=== PATIENT | female | born 1940 | race African-American/Black ===

== ENCOUNTER 2018-01-07 06:01 | Inpatient (IN) | payer MEDICARE, MEDICAID ==
[2018-01-07] MEDS ORDERED: Nitroglycerin 0.4 MG TAB (25 Tab Bottle) ONE (06:29)
[2018-01-07 06:50] LABS: #Eosinphils 0.1 thou/uL (0.0-0.7); #Lymphocytes 1.3 thou/uL (1.20-3.40); #Monocytes 0.5 thou/uL (0.11-0.59); #Neutrophils 4.4 thou/uL (1.40-6.50); %Basophils 0.5 % (0.0-1.0); %Lymphocytes 20.7 % (21.0-51.0); %Monocytes 7.3 % (0.0-10.0); %Neutrophils 69.5 % (42.0-75.0); Hemoglobin 12.2 g/dL (12.0-16.0); Mean Corpuscular Hemoglobin 26.9 pg (27.0-31.0); Mean Corpuscular Volume 89.7 fl (81.0-99.0); Mean Platelet Volume 8.5 fL (7.4-10.4); Platelet Count 176 thou/uL (130-400); RBC Distribution Width 16.7 % (11.5-14.5); Red Blood Cell (RBC) Count 4.53 mill/uL (4.20-5.40); White Blood Cell (WBC) Count 6.3 thou/uL (4.8-10.8)
[2018-01-07 07:03] LABS: ALT (SGPT) 9 U/L (8-55); AST (SGOT) 18 U/L (5-34); Albumin 3.8 g/dL (3.4-4.8); Alkaline Phosphatase 93 U/L (40-150); Anion Gap 9 mmol/L (10-20); BUN (Urea Nitrogen) 14 mg/dL (9.8-20.1); Bilirubin, Total 0.6 mg/dL (0.2-1.2); Calc. Creatinine Clearance 0 mL/min (70-130); Calcium 9.3 mg/dL (7.8-10.44); Carbon Dioxide 31 mmol/L (23-31); Chloride 105 mmol/L (98-107); Estimated GFR-MDRD 61; Globulin 4.1 g/dL (2.4-3.5); Glucose 94 mg/dL (83-110); Potassium 4.1 mmol/L (3.5-5.1); Protein, Total 7.9 g/dL (6.0-8.3); Sodium 141 mmol/L (136-145)
[2018-01-07 07:07] LABS: CKMB 1.9 ng/mL (0-6.6); Troponin I 0.055 ng/mL (< 0.028)
[2018-01-07 07:14] LABS: Hypochromia SLIGHT = 6-15 cells (100X) (0-5/hpf); MDiff Complete? YES; Polychromasia SLIGHT = 2-3 cells (100X) (0-2/hpf)
--- NOTE | 2018-01-07 07:36 | RAD ---
RADIOGRAPH CHEST 1 VIEW: Date: 01/07/18 Time: 0637 HOURS HISTORY: 77-year-old female with dyspnea. COMPARISON: 06/07/14. FINDINGS: Again, the lungs are very hypoinflated, making this a limited study. There are bilateral mixed inters titial and alveolar infiltrates, in a heterogeneous distribution. The right upper lobe is relatively spared. The pattern is similar to that of the prior study. No pneumothorax. IMPRESSION: Nonspecific, bilateral mixed interstitial and alveolar infiltrates, in a pattern similar to prior danielle dy several years ago: pneumonia versus pulmonary edema versus chronic changes. JN [] POS: OFF
[2018-01-07] MEDS ORDERED: Furosemide 40 MG/4 ML VIAL ONE (08:19)
[2018-01-07] MEDS ORDERED: Nitroglycerin 2% Ointment 1 INCH/1 GM Packet ONE (08:19)
[2018-01-07] MEDS ORDERED: Acetaminophen 500 MG TAB ONE ×2 (10:37)
[2018-01-07 11:45] LABS: Clarity Clear (Clear); Glucose, Urine (Dipstick) Negative (Negative); Leukocyte Negative (Negative); Nitrite Negative (Negative); Protein, Urine (Dipstick) Negative (Neg-Trace); Specific Gravity, Urine 1.007 (1.002-1.036); Urobilinogen 0.2 mg/dL (0.2-1.0)
[2018-01-07 11:46] LABS: Bilirubin Negative (Negative); Blood, Urine Negative (Negative)
[2018-01-07 14:35] VITALS: BMI 36.6
[2018-01-07] MEDS ORDERED: Furosemide 100 MG/10 ML VIAL SLOW IVP SCH (14:45)
[2018-01-07] MEDS ORDERED: Amlodipine 5 MG TAB PO SCH (16:15)
--- NOTE | 2018-01-07 16:33 | CON ---
DATE OF CONSULTATION: 01/07/2018 REASON FOR CONSULTATION: Elevated BNP and shortness of breath. REFERRING PROVIDER: Sav Corbett MD HISTORY OF PRESENT ILLNESS: Ms. Raygoza is a pleasant 77-year-old woman who has not been seen or evalua joaquina by Cardiology in the past. She does have a history of advanced PVD and is being followed by Dr. Cyril Porras. She says over the last week she has had increased shortness of breath. It is unknown w hether she has had increased weight. She has had a cough with phlegm production. No chest pain pres sure noted. Her BNP was greater than 1000. PAST MEDICAL HISTORY: Diabetes mellitus, PVD, status post left AKA, hypertension, hyperlipidemia, gl aucoma. ALLERGIES: SULFA. SOCIAL HISTORY: No current tobacco or alcohol use. REVIEW OF SYSTEMS: Ten point review of systems is reviewed and as above, otherwise negative. PHYSICAL EXAMINATION: GENERAL: Patient is a pleasant female who is in no acute distress. The patient appears her stated a ge. VITAL SIGNS: 188/83, pulse 70, temperature 98.2. NEUROLOGIC: The patient is alert and oriented times 3 with no focal neurologic deficits. HEENT: Sclerae without icterus. Mouth has moist mucous membranes with normal pallor. NECK: No JVD. Carotid upstroke brisk. No bruits bilaterally. LUNGS: Clear to auscultation with unlabored respirations. BACK: No scoliosis or kyphosis. CARDIAC: Regular rate and rhythm with normal S1 and S2. No S3 or S4 noted. No significant rubs, mu rmurs, thrills, or gallops noted throughout the precordium. PMI is not displaced. There is no avtar ternal heave. ABDOMEN: Soft, nontender, nondistended. No peritoneal signs present. No hepatosplenomegaly. No ab normal striae. EXTREMITIES: AKA on left. SKIN: No gross abnormalities. PERTINENT LABORATORY DATA: As above including a peak troponin of 0.055. IMPRESSION: 1. Shortness of breath. 2. Elevated BNP. 3. Peripheral vascular disease. 4. Diabetes mellitus. RECOMMENDATIONS: Ms. Raygoza's symptoms is likely related to diastolic dysfunction. Her blood pressure is markedly elevated. At this point, we would recommend aggressive blood pressure management, would also recommend an echo with Doppler which is currently pending. She is currently on Coreg at 3.125 one p.o. b.i.d. We will increase to 6.25 b.i.d. We will also increase her lisinopril and add low dos e Norvasc.
[2018-01-07 16:34] LABS: Troponin I 0.077 ng/mL (< 0.028)
[2018-01-07] MEDS ORDERED: Dextrose 50% Abboject 50 ML SYRINGE SLOW IVP PRN (17:43)
[2018-01-07] MEDS ORDERED: Dextrose 5% in Water 1,000 ML IV PRN (17:43)
[2018-01-07] MEDS: Carvedilol 6.25 MG TAB PO SCH (20:54)
[2018-01-07] MEDS ORDERED: Carvedilol 3.125 MG TAB PO SCH (21:00)
[2018-01-07 21:51] LABS: Troponin I 0.055 ng/mL (< 0.028)
[2018-01-08] MEDS: Furosemide 40 MG/4 ML VIAL SLOW IVP SCH ×2 (05:32→14:40)
[2018-01-08 05:35] LABS: ALT (SGPT) 9 U/L (8-55); AST (SGOT) 19 U/L (5-34); Albumin 3.4 g/dL (3.4-4.8); Alkaline Phosphatase 90 U/L (40-150); Bilirubin, Direct 0.3 mg/dL (0.1-0.3); Bilirubin, Total 0.6 mg/dL (0.2-1.2); Protein, Total 7.2 g/dL (6.0-8.3)
[2018-01-08] MEDS ORDERED: Lisinopril 2.5 MG TAB PO SCH (09:00)
[2018-01-08] MEDS ORDERED: Amlodipine 5 MG TAB PO SCH (09:00)
[2018-01-08 09:34] LABS: #Eosinphils 0.1 thou/uL (0.0-0.7); #Lymphocytes 1.1 thou/uL (1.20-3.40); #Monocytes 0.5 thou/uL (0.11-0.59); #Neutrophils 4.4 thou/uL (1.40-6.50); %Basophils 0.8 % (0.0-1.0); %Eosinophils 2.2 % (0.0-10.0); %Lymphocytes 17.6 % (21.0-51.0); %Monocytes 7.4 % (0.0-10.0); %Neutrophils 72.1 % (42.0-75.0); Hemoglobin 12.7 g/dL (12.0-16.0); Mean Corpuscular HGB CONC 29.7 g/dL (32.0-36.0); Mean Corpuscular Hemoglobin 26.8 pg (27.0-31.0); Mean Platelet Volume 9.5 fL (7.4-10.4); Platelet Count 186 thou/uL (130-400); Red Blood Cell (RBC) Count 4.76 mill/uL (4.20-5.40); White Blood Cell (WBC) Count 6.1 thou/uL (4.8-10.8)
[2018-01-08 09:44] LABS: Anion Gap 16 mmol/L (10-20); BUN (Urea Nitrogen) 17 mg/dL (9.8-20.1); Calc. Creatinine Clearance 102 mL/min (70-130); Calcium 9.2 mg/dL (7.8-10.44); Carbon Dioxide 26 mmol/L (23-31); Chloride 103 mmol/L (98-107); Estimated GFR-MDRD 67; Glucose 148 mg/dL (83-110); Potassium 4.3 mmol/L (3.5-5.1); Sodium 141 mmol/L (136-145)
--- NOTE | 2018-01-08 11:38 | PDOC.PN ---
- Subjective Encounter Start Date: 01/08/18 Encounter Start Time: 11:37 Subjective: nsg notes rev, lloyd ovn, currently still has some SOB sig improv c/w yday -: family @ bedside, no new c/o on 2LNC - Objective Vital Signs & Weight: Vital Signs (12 hours) Temp Pulse Resp BP Pulse Ox 01/08/18 11:23 98.8 F 70 16 127/58 L 95 01/08/18 09:31 98.1 F 70 16 127/70 95 01/08/18 04:00 98.1 F 62 18 114/63 93 L Weight Weight 297 lb 4.8 oz I&O: 01/07/18 01/08/18 01/09/18 06:59 06:59 06:59 Intake Total 660 Output Total 4975 Balance -4315 Result Diagrams: 01/08/18 04:10 01/09/18 07:53 Additional Labs: Accuchecks 01/08/18 01/07/18 01/07/18 05:59 20:55 16:57 POC Glucose 141 H 167 H 103 Phys Exam - Physical Examination Constitutional: NAD HEENT: PERRLA, moist MMs, sclera anicteric Neck: no nodes, no JVD, supple Respiratory: no wheezing, no rales, no rhonchi, clear to auscultation bilateral Cardiovascular: RRR, no significant murmur, no rub Gastrointestinal: soft, non-tender, no distention, positive bowel sounds Neurological: moves all 4 limbs Psychiatric: normal affect, A&O x 3 Skin: cap refill <2 seconds Dx/Plan - Plan * CHF * appreciate cardiology c/s * pending ECHO and then either poss stress vs LHC * continue IV diuresis lasix 40mg IV BID - currently diuresing approx 2L ovn * BMP in AM * Mosher DM2, stable * SSI * diabetic diet Hypertensive urgency on adm * resolved * continue home regimen and NICKIE, BB, diuresis obesity stable diet: cardiac, low sodium, fluid restricted activity: as naty Review of Systems - Medications/Allergies Allergies/Adverse Reactions: Allergies Allergy/AdvReac Type Severity Reaction Status Date / Time peanut Allergy Severe Anaphylaxis Verified 06/04/13 00:22 Medications: Current Medications Amlodipine Besylate (Norvasc) 5 mg PO DAILY [facility] Aspirin (Aspirin Chewable) 81 mg PO DAILY [facility] Carvedilol (Coreg) 6.25 mg PO BID [facility] Last Admin: 01/07/18 20:54 Dose: 6.25 mg Dextrose/Water (Dextrose 50%) 25 gm SLOW IVP PRN PRN PRN Reason: Hypoglycemia Furosemide (Lasix) 40 mg SLOW IVP 0600,1400 [facility] Last Admin: 01/08/18 05:32 Dose: 40 mg Glucagon (Glucagon) 1 mg IM PRN PRN PRN Reason: Hypoglycemia Dextrose/Water (D5w) 1,000 mls @ 0 mls/hr IV .Q0M PRN; As Directed PRN Reason: Hypoglycemia Insulin Human Lispro (Humalog) 0 units SC .MILD SLIDING SCALE PRN PRN Reason: Mild Correctional Scale Lisinopril (Zestril) 2.5 mg PO DAILY [facility] Lisinopril (Zestril) 10 mg PO DAILY [facility] Sodium Chloride (Flush - Normal Saline) 10 ml IVF Q12HR [facility] Last Admin: 01/07/18 20:56 Dose: 10 ml Sodium Chloride (Flush - Normal Saline) 10 ml IVF PRN PRN PRN Reason: Saline Flush Last Admin: 01/08/18 05:32 Dose: 10 ml
[2018-01-08] MEDS: Carvedilol 6.25 MG TAB PO SCH ×2 (14:32→20:57)
[2018-01-08] MEDS: Amlodipine 5 MG TAB PO SCH (14:32)
[2018-01-08] MEDS: Lisinopril 10 MG TAB PO SCH (14:32)
[2018-01-08] MEDS ORDERED: Gabapentin 300 MG CAP PO SCH (22:45)
[2018-01-09] MEDS: Furosemide 40 MG/4 ML VIAL SLOW IVP SCH ×2 (05:40→13:19)
[2018-01-09 08:30] LABS: Anion Gap 14 mmol/L (10-20); BUN (Urea Nitrogen) 15 mg/dL (9.8-20.1); Calc. Creatinine Clearance 105 mL/min (70-130); Calcium 9.4 mg/dL (7.8-10.44); Carbon Dioxide 36 mmol/L (23-31); Chloride 96 mmol/L (98-107); Estimated GFR-MDRD 71; Glucose 154 mg/dL (83-110); Potassium 3.6 mmol/L (3.5-5.1); Sodium 142 mmol/L (136-145)
--- NOTE | 2018-01-09 08:52 | HP ---
CHIEF COMPLAINT: Shortness of breath. HISTORY OF PRESENT ILLNESS: A 77-year-old female with a prior history of hypertension, diabetes, per ipheral vascular disease who presents with a chief complaint of shortness of breath. The patient sta johnny this has been progressive for the last several days. She does note a fair amount of swelling, ge neralized throughout her body and targeted towards her lower extremities as well. The patient denies any overt chest pain. Denies any cough. Denies any fevers, chills, or known sick contacts. Denies any prior similar episodes. REVIEW OF SYSTEMS: CONSTITUTIONAL: No fevers, no chills, no recent weight change that the patient is aware of. HEENT: No new headaches, vision changes, lightheadedness. CARDIOVASCULAR: Shortness of breath as above, otherwise accompanied by dyspnea with exertion, but no chest pain, chest pressure, diaphoresis, nausea or vomiting. RESPIRATORY: Shortness of breath as above. Intermittent cough, nonproductive. No coughing paroxysm s. GASTROINTESTINAL: No nausea, no vomiting. The patient reports a retained appetite. No diarrhea, no issues with constipation. GENITOURINARY: No dysuria, no change in urinary frequency, quality or quantity. MUSCULOSKELETAL: No new arthralgias or myalgias. The remainder of the review of systems otherwise negative. PAST MEDICAL HISTORY: As per above, includes hypertension, obesity, diabetes, question of prior aort ic valvular surgery, peripheral vascular disease. HOME MEDICATIONS: As per EMR. The patient denies any changes over the last month to her home regime n. 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 FAMILY HISTORY: Significant for cardiovascular disease and hypertension. SOCIAL HISTORY: Denies any alcohol, tobacco or illicit drug use at this point in time. The patient endorses being a full code as well and does not designated a medical decision maker at this point in time. PHYSICAL EXAMINATION: VITAL SIGNS: Temperature 98.2, heart rate of 70, blood pressure 211/92, respirations 18, satting 97% on 3 liters nasal cannula. Of note, it appears that the patient was hypoxic with a pO2 of 83% upon initial presentation. HEENT: Ocular motions are intact. Moist mucous membranes. GENERAL: The patient is awake, alert, appropriate, sitting in the hospital bed. CARDIOVASCULAR: S1, S2, soft heart tones. Pulses 2+ bilateral upper extremities, 2+ bilateral pitti ng pedal edema. RESPIRATORY: Diminished throughout, coarse with bibasilar crackles. ABDOMEN: Positive bowel sounds. Large, obese, soft, nontender to palpation. MUSCULOSKELETAL: Moving all 4 extremities. LABORATORY DATA AND IMAGING: WBC 6.3, hemoglobin 12.2, hematocrit 40.6, platelets 176. Sodium 141, potassium 4.1, chloride 105, bicarbonate 31, BUN 14, creatinine 0.105, glucose 94, calcium 9.3, tota l bilirubin 0.6, AST 18, ALT 9, alkaline phosphatase 93. Initial troponin 0.05 followed by 0.077, fo llowed by 0.055. Beta natriuretic peptide is 1041.4, total protein 7.9, albumin 3.8. UA is essentia lly bland. ASSESSMENT AND PLAN: This is a 77-year-old female presenting with chief complaint of shortness of br eath. 1. Shortness of breath with a clinical picture consistent with congestive heart failure. I apprecia te Cardiology consult. The patient has received 40 IV Lasix in the ER. We will follow this with ano ther 80 mg IV for a total of 120 mg IV Lasix with close monitoring of her renal function and electrol ytes. We will check an echocardiogram. Trend serial troponins. Maintain on telemetry as well. The patient certainly has risk factors for interval cardiovascular disease development and it is unclear if this is purely diastolic versus a systolic component to her heart failure at this point in time. 2. Hypertension. Patient currently has uncontrolled hypertension. We will administer the Lasix as noted above and closely monitor her blood pressure. I expect a degree of the escalation of her systo lic blood pressure after administration of the Lasix. If not, I will continue with her home medicati ons with p.r.n. either beta beverley if her heart rate allows or hydralazine as needed for blood press ure control. 3. Diabetes. Continue cardiac diabetic diet with low sodium. Sliding scale insulin. 4. Obesity. The patient has been counseled regarding lifestyle modifications. We admitted the patient to inpatient medical/surgical with telemetry. Full code. Thank you for asking me to care for the patient.
[2018-01-09] MEDS: Carvedilol 6.25 MG TAB PO SCH ×2 (13:10→21:01)
[2018-01-09] MEDS: Amlodipine 5 MG TAB PO SCH (13:10)
[2018-01-09] MEDS: Lisinopril 10 MG TAB PO SCH (13:12)
[2018-01-09] MEDS ORDERED: Regadenoson 0.4 MG/5 ML SYRINGE ONE (14:58)
--- NOTE | 2018-01-09 15:06 | PDOC.PN ---
- Subjective Encounter Start Date: 01/09/18 Encounter Start Time: 15:03 Subjective: nsg notes rev, lloyd ovn, dtr @ bedside, breathing feels better -: pt has no new c/o, denies SOB, was sleeping, no CP, easily arousable - Objective Vital Signs & Weight: Vital Signs (12 hours) Temp Pulse Resp BP Pulse Ox 01/09/18 13:13 66 17 157/63 H 92 L 01/09/18 08:00 98.5 F 73 18 160/67 H 95 01/09/18 04:00 98.5 F 67 16 139/60 93 L Weight Weight 291 lb 1.6 oz I&O: 01/08/18 01/09/18 01/10/18 06:59 06:59 06:59 Intake Total 660 1120 Output Total 497 5900 Balance -4315 -9480 Result Diagrams: 01/08/18 04:10 01/09/18 07:53 Additional Labs: Accuchecks 01/09/18 01/08/18 01/08/18 06:02 20:27 16:25 POC Glucose 144 H 170 H 152 H Phys Exam - Physical Examination Constitutional: NAD HEENT: PERRLA, moist MMs, sclera anicteric Respiratory: no wheezing, no rales, no rhonchi difficult to hear lung sounds 2/2 habitus, ? faint bibas crackles Cardiovascular: RRR, no significant murmur, no rub soft heart tones 2/2 habitus Gastrointestinal: soft, non-tender, positive bowel sounds Musculoskeletal: no edema, pulses present Neurological: moves all 4 limbs Psychiatric: normal affect, A&O x 3 Dx/Plan - Plan * * CHF * appreciate cardiology c/s * pending ECHO and awaiting second half of stress test * continue IV diuresis lasix 40mg IV BID - currently diuresing approx 2L ovn * BMP in AM * Mosher DM2, stable * SSI * diabetic diet Hypertensive urgency on adm, resolved * continue home regimen and NICKIE, BB, diuresis obesity stable diet: cardiac, low sodium, fluid restricted activity: as naty d/w pt's dtr @ bedside Review of Systems - Medications/Allergies Allergies/Adverse Reactions: Allergies Allergy/AdvReac Type Severity Reaction Status Date / Time peanut Allergy Severe Anaphylaxis Verified 06/04/13 00:22 Medications: Current Medications Amlodipine Besylate (Norvasc) 5 mg PO DAILY [facility] Last Admin: 01/09/18 13:10 Dose: 5 mg Aspirin (Aspirin Chewable) 81 mg PO DAILY [facility] Last Admin: 01/09/18 13:10 Dose: 81 mg Carvedilol (Coreg) 6.25 mg PO BID [facility] Last Admin: 01/09/18 13:10 Dose: 6.25 mg Dextrose/Water (Dextrose 50%) 25 gm SLOW IVP PRN PRN PRN Reason: Hypoglycemia Furosemide (Lasix) 40 mg SLOW IVP 0600,1400 [facility] Last Admin: 01/09/18 13:19 Dose: 40 mg Gabapentin (Neurontin) 600 mg PO TID [facility] Glucagon (Glucagon) 1 mg IM PRN PRN PRN Reason: Hypoglycemia Dextrose/Water (D5w) 1,000 mls @ 0 mls/hr IV .Q0M PRN; As Directed PRN Reason: Hypoglycemia Insulin Human Lispro (Humalog) 0 units SC .MILD SLIDING SCALE PRN PRN Reason: Mild Correctional Scale Lisinopril (Zestril) 10 mg PO DAILY [facility] Last Admin: 01/09/18 13:12 Dose: 10 mg Sodium Chloride (Flush - Normal Saline) 10 ml IVF Q12HR [facility] Last Admin: 01/09/18 13:12 Dose: 10 ml Sodium Chloride (Flush - Normal Saline) 10 ml IVF PRN PRN PRN Reason: Saline Flush Last Admin: 01/08/18 05:32 Dose: 10 ml
[2018-01-09] MEDS: Gabapentin 300 MG CAP PO SCH ×2 (15:32→21:01)
[2018-01-09] MEDS: HumaLOG 300 UNITS/3 ML VIAL SC PRN (17:08)
[2018-01-10] MEDS: Furosemide 40 MG/4 ML VIAL SLOW IVP SCH ×2 (06:29→17:39)
[2018-01-10] MEDS: Amlodipine 5 MG TAB PO SCH (10:05)
[2018-01-10] MEDS: Carvedilol 6.25 MG TAB PO SCH ×2 (10:05→21:23)
[2018-01-10] MEDS: Gabapentin 300 MG CAP PO SCH ×3 (10:05→21:22)
[2018-01-10] MEDS: Lisinopril 10 MG TAB PO SCH (10:06)
--- NOTE | 2018-01-10 11:46 | NM ---
CARDIAC SPECT: CLINICAL HISTORY: 77-year-old female with chest pain, peripheral vascular disease, hypertension, diabetes, and dyslipid emia. TECHNIQUE: A myocardial perfusion scan was performed using the single isotope two day protocol with 32 mCi techn etium-99m sestamibi injected intravenously for both stress and rest images. Pharmacologic stress with Lexiscan was monitored and interpreted by Keyshawn Thomas NP. FINDINGS: A large inferior wall defect is seen with extension into the distal inferolateral and inferoseptal wa lls. No reversible defects are identified. GATED SPECT LVEF: 53%. WALL MOTION EXAM: Inferior wall hypokinesis. IMPRESSION: No evidence of reversible ischemia. POS: FRACISCO
[2018-01-10] MEDS ORDERED: Communication Order-Pharmacy FS SCH (12:15)
[2018-01-10] MEDS ORDERED: Lidocaine 1% (PF) 30 ML VIAL ONE (12:29)
[2018-01-10] MEDS ORDERED: Nitroglycerin 0.4 MG TAB (25 Tab Bottle) SL PRN (13:20)
[2018-01-10] MEDS ORDERED: traMADol HCl 50 MG TAB PO PRN (13:20)
[2018-01-10] MEDS ORDERED: Acetaminophen/Codeine 30-300mg Tablet PO PRN ×2 (13:20)
[2018-01-10] MEDS ORDERED: Sodium Chloride 0.9% 1,000 ML IV SCH (13:30)
[2018-01-10] MEDS ORDERED: Sodium Chloride 0.9% 200 ML IV SCH (13:30)
--- NOTE | 2018-01-10 21:36 | CON ---
DATE OF CONSULTATION: 01/10/2018 HISTORY OF PRESENT ILLNESS: This is a pleasant 77-year-old female admitted with congestive heart susan lure about 3-4 days ago. Workup has included a cardiac echo demonstrating an EF of 40%-45% with mild , moderate MR. Cardiac catheterization today demonstrates 70% left main, 60% LAD, 60% circ, 100% right with a potential graft targets of the LAD, diagonal, and OM. PAST MEDICAL HISTORY: Includes diabetes mellitus, peripheral arterial disease, hypertension, dyslipi demia, followed by Dr. Marrero in [place]. PAST SURGICAL HISTORY: Significant for left fem-pop bypass with saphenous vein followed by left abov e-knee amputation in 2007 for nonhealing wounds of the foot. 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 She then devel oped a distal stenosis in her graft and underwent stenting in 2012 and has had recurrent stenosis kwadwo t has been monitored expectantly with no further interventions felt to be feasible due to the fact th at she has no other conduit to allow for revascularization. SOCIAL HISTORY: The patient is a nonsmoker. She lives with her daughter, is a wheelchair bound acce pted for transfer. PHYSICAL EXAMINATION: GENERAL: She is an alert, pleasant lady, in no distress. VITAL SIGNS: Blood pressure 140/80, heart rate 70. NECK: I do not appreciate any carotid bruits. CARDIAC: She has a cardiac exam demonstrating a distal heart sounds with no murmurs audible. ABDOMEN: Obese and nontender with panniculus extending over both groins. Left leg has a healed abov e-knee amputation and she has an incision over the medial aspect that is well healed, suggesting a kn own saphenous vein harvest. The right leg is warm into the foot with missing toes well healed sites. She has palpable pulse in her femoral to anterior tibial graft. She has evidence of saphenous vein harvesting to the mid calf, and has no palpable saphenous vein below that area. She has no peripher al edema at this time. At this time, the patient could have a graft to her LAD. However given her size, I am afraid that in complete revascularization with the risk of a difficult recovery due to her inability to move as well as her need for upper extremity transferring would probably not be the best choice. Would treat her congestive heart failure medically and her recurrent V-tach may have to be handled with medication o r possibly a defibrillator. In any event, she has no conduit for any graft other than a CALHOUN to LAD, and I am not sure that this would significantly impact her survival beneficially.
--- NOTE | 2018-01-10 22:32 | PDOC.PN ---
- Subjective Encounter Start Date: 01/10/18 Encounter Start Time: 11:00 Subjective: nsg notes rev, lloyd ovn. pts dtr at bedside -: pt no c/o overall feels better, able to urinate with sumner out, breathing -: better - Objective Vital Signs & Weight: Vital Signs (12 hours) Temp Pulse Resp BP BP BP Pulse Ox 01/10/18 21:23 143/67 H 01/10/18 16:06 97.8 F 63 18 126/58 L 91 L 01/10/18 13:35 98.5 F 65 18 118/57 L 118/57 L 94 L 01/10/18 12:20 98.1 F 73 18 114/53 L 95 Weight Weight 277 lb I&O: 01/09/18 01/10/18 01/11/18 06:59 06:59 06:59 Intake Total 1120 1530 1327.5 Output Total 5900 1675 Balance -4780 -145 1327.5 Result Diagrams: 01/11/18 11:28 01/12/18 04:13 Additional Labs: Accuchecks 01/10/18 01/10/18 01/10/18 20:09 16:19 11:21 POC Glucose 190 H 155 H 169 H 01/10/18 05:59 POC Glucose 167 H Phys Exam - Physical Examination Constitutional: NAD HEENT: PERRLA, moist MMs, sclera anicteric Respiratory: no wheezing, no rales, no rhonchi soft heart tones 2/2 habitus Gastrointestinal: non-tender, positive bowel sounds Neurological: moves all 4 limbs Dx/Plan - Plan * CHF * appreciate cardiology c/s * C * continue IV diuresis lasix 40mg IV BID - currently diuresing approx 2L ovn * BMP in AM * Sumner t/c removal DM2, stable * SSI * diabetic diet Hypertensive urgency on adm, resolved * continue home regimen and NICKEI, BB, diuresis obesity stable diet: cardiac, low sodium, fluid restricted activity: as naty Review of Systems - Medications/Allergies Allergies/Adverse Reactions: Allergies Allergy/AdvReac Type Severity Reaction Status Date / Time peanut Allergy Severe Anaphylaxis Verified 06/04/13 00:22 Medications: Current Medications Acetaminophen/Codeine Phosphate (Tylenol #3) 1 tab PO Q4H PRN PRN Reason: Mild Pain (1-3) Acetaminophen/Codeine Phosphate (Tylenol #3) 2 tab PO Q4H PRN PRN Reason: Moderate Pain (4-6) Amiodarone HCl (Cordarone) 400 mg PO BID [facility] Last Admin: 01/11/18 21:14 Dose: 400 mg Amlodipine Besylate (Norvasc) 5 mg PO DAILY [facility] Last Admin: 01/11/18 08:25 Dose: 5 mg Aspirin (Aspirin Chewable) 81 mg PO DAILY [facility] Last Admin: 01/11/18 08:25 Dose: 81 mg Carvedilol (Coreg) 6.25 mg PO BID [facility] Last Admin: 01/11/18 21:13 Dose: 6.25 mg Dextrose/Water (Dextrose 50%) 25 gm SLOW IVP PRN PRN PRN Reason: Hypoglycemia Furosemide (Lasix) 20 mg PO DAILY [facility] Gabapentin (Neurontin) 600 mg PO TID [facility] Last Admin: 01/11/18 21:13 Dose: 600 mg Glucagon (Glucagon) 1 mg IM PRN PRN PRN Reason: Hypoglycemia Dextrose/Water (D5w) 1,000 mls @ 0 mls/hr IV .Q0M PRN; As Directed PRN Reason: Hypoglycemia Insulin Human Lispro (Humalog) 0 units SC .MILD SLIDING SCALE PRN PRN Reason: Mild Correctional Scale Last Admin: 01/11/18 16:34 Dose: 3 unit Lisinopril (Zestril) 10 mg PO DAILY [facility] Last Admin: 01/11/18 08:25 Dose: 10 mg Nitroglycerin (Nitrostat) 0.4 mg SL Q5MIN PRN PRN Reason: Chest Pain Sodium Chloride (Flush - Normal Saline) 10 ml IVF Q12HR [facility] Last Admin: 01/11/18 21:15 Dose: Not Given Sodium Chloride (Flush - Normal Saline) 10 ml IVF PRN PRN PRN Reason: Saline Flush Last Admin: 01/08/18 05:32 Dose: 10 ml Tramadol HCl (Ultram) 50 mg PO Q6H PRN PRN Reason: Moderate Pain (4-6) Last Admin: 01/11/18 06:02 Dose: 50 mg
[2018-01-11] MEDS: Furosemide 40 MG/4 ML VIAL SLOW IVP SCH ×2 (06:00→14:52)
[2018-01-11] MEDS: HumaLOG 300 UNITS/3 ML VIAL SC PRN ×3 (08:24→16:34)
[2018-01-11] MEDS: Amlodipine 5 MG TAB PO SCH (08:25)
[2018-01-11] MEDS: Gabapentin 300 MG CAP PO SCH ×3 (08:25→21:13)
[2018-01-11] MEDS: Lisinopril 10 MG TAB PO SCH (08:25)
[2018-01-11] MEDS: Carvedilol 6.25 MG TAB PO SCH ×2 (08:25→21:13)
[2018-01-11 11:39] LABS: #Eosinphils 0.2 thou/uL (0.0-0.7); #Lymphocytes 1.2 thou/uL (1.20-3.40); #Monocytes 0.6 thou/uL (0.11-0.59); #Neutrophils 5.1 thou/uL (1.40-6.50); %Basophils 0.5 % (0.0-1.0); %Eosinophils 2.2 % (0.0-10.0); %Lymphocytes 16.2 % (21.0-51.0); %Neutrophils 72.1 % (42.0-75.0); Hemoglobin 12.5 g/dL (12.0-16.0); Mean Corpuscular Hemoglobin 27.5 pg (27.0-31.0); Mean Corpuscular Volume 88.7 fl (81.0-99.0); Mean Platelet Volume 9.6 fL (7.4-10.4); Platelet Count 180 thou/uL (130-400); RBC Distribution Width 15.7 % (11.5-14.5); Red Blood Cell (RBC) Count 4.53 mill/uL (4.20-5.40); White Blood Cell (WBC) Count 7.1 thou/uL (4.8-10.8)
[2018-01-11 11:52] LABS: Anion Gap 12 mmol/L (10-20); BUN (Urea Nitrogen) 35 mg/dL (9.8-20.1); Calc. Creatinine Clearance 60 mL/min (70-130); Calcium 8.7 mg/dL (7.8-10.44); Carbon Dioxide 34 mmol/L (23-31); Chloride 95 mmol/L (98-107); Estimated GFR-MDRD 41; Glucose 207 mg/dL (83-110); Potassium 3.7 mmol/L (3.5-5.1); Sodium 137 mmol/L (136-145)
[2018-01-11] MEDS: Amiodarone 200 MG TAB PO SCH (21:14)
--- NOTE | 2018-01-11 22:31 | PDOC.PN ---
- Subjective Encounter Start Date: 01/11/18 Encounter Start Time: 15:00 Subjective: nsg notes rev, lloyd ovn, pt states her breathing is much better compared -: to admission dtr at bedside inquiring about CABG - Objective Vital Signs & Weight: Vital Signs (12 hours) Temp Pulse Resp BP BP BP Pulse Ox 01/11/18 21:13 109/54 L 01/11/18 20:00 97.8 F 57 L 18 109/54 L 94 L 01/11/18 16:41 97.6 F 57 L 16 141/63 H 97 01/11/18 14:47 54 L 105/49 L 01/11/18 12:09 97.9 F 55 L 14 107/52 L 100 Weight Weight 272 lb I&O: 01/10/18 01/11/18 01/12/18 06:59 06:59 06:59 Intake Total 1530 1567.5 1200 Output Total 1675 Balance -145 1567.5 1200 Result Diagrams: 01/11/18 11:28 01/12/18 04:13 Additional Labs: Accuchecks 01/11/18 01/11/18 01/11/18 19:55 16:17 11:17 POC Glucose 205 H 209 H 211 H 01/11/18 05:48 POC Glucose 180 H Phys Exam - Physical Examination Constitutional: NAD HEENT: PERRLA, moist MMs, sclera anicteric Respiratory: no wheezing, no rales, no rhonchi Cardiovascular: RRR, no significant murmur, no rub Gastrointestinal: soft, non-tender, positive bowel sounds Musculoskeletal: edema present Neurological: moves all 4 limbs Dx/Plan - Plan * CHF * appreciate cardiology c/s * [facility] with diffuse disease - apprec CV surg c/s * change IV to PO lasix * BMP in AM - slight "bump" in Cr - hence de-escalation of diuretic * Mosher removed, pt urinating DM2, stable * SSI * diabetic diet Hypertensive urgency on adm, resolved * continue home regimen and NICKIE, BB, diuresis obesity stable diet: cardiac, low sodium, fluid restricted activity: as naty Discharge planning for home Review of Systems - Medications/Allergies Allergies/Adverse Reactions: Allergies Allergy/AdvReac Type Severity Reaction Status Date / Time peanut Allergy Severe Anaphylaxis Verified 06/04/13 00:22 Medications: Current Medications Acetaminophen/Codeine Phosphate (Tylenol #3) 1 tab PO Q4H PRN PRN Reason: Mild Pain (1-3) Acetaminophen/Codeine Phosphate (Tylenol #3) 2 tab PO Q4H PRN PRN Reason: Moderate Pain (4-6) Amiodarone HCl (Cordarone) 400 mg PO BID [facility] Last Admin: 01/12/18 23:46 Dose: Not Given Amlodipine Besylate (Norvasc) 5 mg PO DAILY [facility] Last Admin: 01/12/18 10:11 Dose: Not Given Aspirin (Aspirin Chewable) 81 mg PO DAILY [facility] Last Admin: 01/12/18 09:15 Dose: 81 mg Atorvastatin Calcium (Lipitor) 40 mg PO HS [facility] Last Admin: 01/12/18 23:46 Dose: Not Given Carvedilol (Coreg) 6.25 mg PO BID [facility] Last Admin: 01/12/18 23:46 Dose: Not Given Clopidogrel Bisulfate (Plavix) 75 mg PO DAILY [facility] Last Admin: 01/12/18 09:16 Dose: 75 mg Dextrose/Water (Dextrose 50%) 25 gm SLOW IVP PRN PRN PRN Reason: Hypoglycemia Furosemide (Lasix) 20 mg PO DAILY [facility] Gabapentin (Neurontin) 600 mg PO TID [facility] Last Admin: 01/12/18 23:33 Dose: Not Given Glucagon (Glucagon) 1 mg IM PRN PRN PRN Reason: Hypoglycemia Dextrose/Water (D5w) 1,000 mls @ 0 mls/hr IV .Q0M PRN; As Directed PRN Reason: Hypoglycemia Insulin Human Lispro (Humalog) 0 units SC .MILD SLIDING SCALE PRN PRN Reason: Mild Correctional Scale Last Admin: 01/12/18 20:50 Dose: 6 unit Lisinopril (Zestril) 10 mg PO DAILY [facility] Last Admin: 01/12/18 10:11 Dose: Not Given Nitroglycerin (Nitrostat) 0.4 mg SL Q5MIN PRN PRN Reason: Chest Pain Sodium Chloride (Flush - Normal Saline) 10 ml IVF Q12HR [facility] Last Admin: 01/12/18 22:07 Dose: 10 ml Sodium Chloride (Flush - Normal Saline) 10 ml IVF PRN PRN PRN Reason: Saline Flush Last Admin: 01/08/18 05:32 Dose: 10 ml Tramadol HCl (Ultram) 50 mg PO Q6H PRN PRN Reason: Moderate Pain (4-6) Last Admin: 01/11/18 06:02 Dose: 50 mg
[2018-01-12 05:09] LABS: Anion Gap 16 mmol/L (10-20); BUN (Urea Nitrogen) 37 mg/dL (9.8-20.1); Calc. Creatinine Clearance 61 mL/min (70-130); Carbon Dioxide 30 mmol/L (23-31); Chloride 97 mmol/L (98-107); Estimated GFR-MDRD 41; Glucose 199 mg/dL (83-110); Potassium 5.5 mmol/L (3.5-5.1); Sodium 137 mmol/L (136-145)
[2018-01-12] MEDS ORDERED: Furosemide 20 MG TAB PO SCH (09:00)
[2018-01-12] MEDS: Amiodarone 200 MG TAB PO SCH ×2 (09:14→23:46)
[2018-01-12] MEDS: Carvedilol 6.25 MG TAB PO SCH ×2 (09:14→23:46)
[2018-01-12] MEDS: Gabapentin 300 MG CAP PO SCH ×3 (09:15→23:33)
[2018-01-12] MEDS: Clopidogrel Bisulfate 75 MG TAB PO SCH (09:16)
[2018-01-12] MEDS: HumaLOG 300 UNITS/3 ML VIAL SC PRN ×4 (09:16→20:50)
[2018-01-12] MEDS: Amlodipine 5 MG TAB PO SCH (10:11)
[2018-01-12] MEDS: Lisinopril 10 MG TAB PO SCH (10:11)
--- NOTE | 2018-01-12 20:36 | PDOC.PN ---
- Subjective Encounter Start Date: 01/12/18 Encounter Start Time: 11:00 Subjective: nsg notes rev, lloyd ovn, pt is lying in hsopital bed eager to go home -: pt was initially scheduled for D/C but then had a nearsyncopal event -: ? related to low SBP and deconditioning - Objective Vital Signs & Weight: Vital Signs (12 hours) Temp Pulse Resp BP BP BP Pulse Ox 01/12/18 17:02 100.1 F H 77 16 135/60 91 L 01/12/18 16:36 77 18 134/63 92 L 01/12/18 16:00 91 L 01/12/18 13:06 118/79 01/12/18 12:00 98.1 F 75 16 101/42 L 94 L 01/12/18 10:11 115/37 L 01/12/18 10:10 115/37 L 01/12/18 09:14 116/51 L Weight Weight 267 lb 14.4 oz I&O: 01/11/18 01/12/18 01/13/18 06:59 06:59 06:59 Intake Total 1567.5 1410 Balance 1567.5 1410 Result Diagrams: 01/11/18 11:28 01/12/18 04:13 Additional Labs: Accuchecks 01/12/18 01/12/18 01/12/18 16:56 10:50 05:36 POC Glucose 255 H 249 H 211 H Phys Exam - Physical Examination Constitutional: NAD HEENT: PERRLA, moist MMs, sclera anicteric Respiratory: no wheezing, no rales, no rhonchi Cardiovascular: RRR, no significant murmur, no rub Gastrointestinal: soft, positive bowel sounds Musculoskeletal: edema present Neurological: moves all 4 limbs Dx/Plan - Plan * CHF * appreciate cardiology c/s * [facility] with diffuse disease - apprec CV surg c/s * neg -12L during hospitalization * hold AM lasix x1 ONLY * Mosher removed, pt urinating DM2, stable * SSI * diabetic diet Hypertensive urgency on adm, resolved * continue home regimen and NICKIE, BB, diuresis * suspect relative hypotension with medication modifications and diuresis obesity stable diet: cardiac, low sodium, fluid restricted activity: as naty Review of Systems - Medications/Allergies Allergies/Adverse Reactions: Allergies Allergy/AdvReac Type Severity Reaction Status Date / Time peanut Allergy Severe Anaphylaxis Verified 06/04/13 00:22 Medications: Current Medications Acetaminophen/Codeine Phosphate (Tylenol #3) 1 tab PO Q4H PRN PRN Reason: Mild Pain (1-3) Acetaminophen/Codeine Phosphate (Tylenol #3) 2 tab PO Q4H PRN PRN Reason: Moderate Pain (4-6) Amiodarone HCl (Cordarone) 400 mg PO BID [facility] Last Admin: 01/12/18 23:46 Dose: Not Given Amlodipine Besylate (Norvasc) 5 mg PO DAILY [facility] Last Admin: 01/12/18 10:11 Dose: Not Given Aspirin (Aspirin Chewable) 81 mg PO DAILY [facility] Last Admin: 01/12/18 09:15 Dose: 81 mg Atorvastatin Calcium (Lipitor) 40 mg PO HS [facility] Last Admin: 01/12/18 23:46 Dose: Not Given Carvedilol (Coreg) 6.25 mg PO BID [facility] Last Admin: 01/12/18 23:46 Dose: Not Given Clopidogrel Bisulfate (Plavix) 75 mg PO DAILY [facility] Last Admin: 01/12/18 09:16 Dose: 75 mg Dextrose/Water (Dextrose 50%) 25 gm SLOW IVP PRN PRN PRN Reason: Hypoglycemia Furosemide (Lasix) 20 mg PO DAILY [facility] Gabapentin (Neurontin) 600 mg PO TID [facility] Last Admin: 01/12/18 23:33 Dose: Not Given Glucagon (Glucagon) 1 mg IM PRN PRN PRN Reason: Hypoglycemia Dextrose/Water (D5w) 1,000 mls @ 0 mls/hr IV .Q0M PRN; As Directed PRN Reason: Hypoglycemia Insulin Human Lispro (Humalog) 0 units SC .MILD SLIDING SCALE PRN PRN Reason: Mild Correctional Scale Last Admin: 01/12/18 20:50 Dose: 6 unit Lisinopril (Zestril) 10 mg PO DAILY [facility] Last Admin: 01/12/18 10:11 Dose: Not Given Nitroglycerin (Nitrostat) 0.4 mg SL Q5MIN PRN PRN Reason: Chest Pain Sodium Chloride (Flush - Normal Saline) 10 ml IVF Q12HR [facility] Last Admin: 01/12/18 22:07 Dose: 10 ml Sodium Chloride (Flush - Normal Saline) 10 ml IVF PRN PRN PRN Reason: Saline Flush Last Admin: 01/08/18 05:32 Dose: 10 ml Tramadol HCl (Ultram) 50 mg PO Q6H PRN PRN Reason: Moderate Pain (4-6) Last Admin: 01/11/18 06:02 Dose: 50 mg
[2018-01-12] MEDS ORDERED: Sodium Chloride 0.9% 1,000 ML IV SCH (22:00)
[2018-01-12] MEDS: Atorvastatin Calcium 40 MG TAB PO SCH (23:46)
[2018-01-13] MEDS: Lisinopril 10 MG TAB PO SCH (08:30)
[2018-01-13] MEDS: Carvedilol 6.25 MG TAB PO SCH ×2 (08:30→20:40)
[2018-01-13] MEDS: Gabapentin 300 MG CAP PO SCH ×3 (08:31→20:41)
[2018-01-13] MEDS: Clopidogrel Bisulfate 75 MG TAB PO SCH (08:32)
[2018-01-13] MEDS: HumaLOG 300 UNITS/3 ML VIAL SC PRN ×4 (08:32→21:30)
[2018-01-13] MEDS: Amiodarone 200 MG TAB PO SCH ×2 (10:21→20:39)
[2018-01-13] MEDS: Amlodipine 5 MG TAB PO SCH (10:23)
[2018-01-13] MEDS ORDERED: Lisinopril 5 MG TAB PO SCH (13:30)
[2018-01-13] MEDS ORDERED: Amiodarone 200 MG TAB PO SCH (14:00)
--- NOTE | 2018-01-13 20:09 | PRG ---
DATE OF SERVICE: 01/13/2018 SUBJECTIVE: The patient is seen and examined at bedside. She is feeling better today. Yesterday, s he had an episode of near syncope and the patient required some IV fluids bolus and we had discussion with the nurses and the family that she will need to go to the [facility] to reg ain her strength and improve her balance since she is in below the knee amputee and her current situa tion does not allow her to go home with her daughter's care. OBJECTIVE: VITAL SIGNS: Blood pressure is 124/54, temperature is 97.7, pulse is 54, respiratory rate is 16 and pulse oximetry is 94% on 3 liters by nasal cannula. GENERAL: She is an obese lady. Her BMI is 44. HEENT: Eyes; PERRLA. Sclerae nonicteric. Oral mucosa is moist. NECK: Supple. LUNGS: Breath sounds diminished at the both bases. No rales or wheezing. HEART: S1 and S2, somewhat distant. No S3, no S4. ABDOMEN: Obese and mildly distended. EXTREMITIES: Left below the knee amputee. Right lower extremity, no swelling. NEUROLOGIC: She follows my commands. She moves her all extremities. She follows my commands. LABORATORY DATA: None today. IMPRESSION: 1. Congestive heart failure status post left heart catheterization with diffuse disease, status post CT surgical consultation, which recommends medical management. 2. Near syncope, improved with IV fluids. 3. Diabetes mellitus. She would probably require slightly high doses of her regimen in what she is on now. 4. Hypertensive urgency on admission, resolved. We will continue her NICKIE, and diaphoresis. 5. Obesity. 6. Hypotensive episodes. I will try to cut back on her blood pressure medications. The case manage r consultation is requested and she will need to be moved to [facility] to regain her balance and work on her generalized instability before she can go home under her daughter's care .
[2018-01-13] MEDS: Atorvastatin Calcium 40 MG TAB PO SCH (20:40)
[2018-01-13] MEDS: Insulin NPH/Reg Insulin Hm 300 UNITS/3 ML VIAL SC SCH (21:33)
[2018-01-14] MEDS: HumaLOG 300 UNITS/3 ML VIAL SC PRN ×3 (06:12→18:59)
[2018-01-14] MEDS ORDERED: Amlodipine 5 MG TAB PO SCH (09:00)
[2018-01-14] MEDS ORDERED: Furosemide 20 MG TAB PO SCH (09:00)
[2018-01-14] MEDS ORDERED: Lisinopril 5 MG TAB PO SCH (09:00)
[2018-01-14] MEDS: Insulin NPH/Reg Insulin Hm 300 UNITS/3 ML VIAL SC SCH ×2 (10:09→22:00)
[2018-01-14] MEDS: Gabapentin 300 MG CAP PO SCH ×2 (10:09→16:05)
[2018-01-14] MEDS: Clopidogrel Bisulfate 75 MG TAB PO SCH (10:10)
[2018-01-14] MEDS: Amiodarone 200 MG TAB PO SCH ×3 (10:22→21:52)
[2018-01-14] MEDS: Carvedilol 6.25 MG TAB PO SCH ×2 (10:23→21:56)
[2018-01-14 13:08] LABS: Anion Gap 17 mmol/L (10-20); BUN (Urea Nitrogen) 54 mg/dL (9.8-20.1); Calc. Creatinine Clearance 30 mL/min (70-130); Carbon Dioxide 26 mmol/L (23-31); Chloride 94 mmol/L (98-107); Estimated GFR-MDRD 18; Glucose 303 mg/dL (83-110); Potassium 5.1 mmol/L (3.5-5.1); Sodium 132 mmol/L (136-145)
--- NOTE | 2018-01-14 13:28 | PDOC.PN ---
- Subjective Encounter Start Date: 01/14/18 Encounter Start Time: 13:31 Subjective: No complaints. -: No aute events overight. - Objective MAR Reviewed: Yes Vital Signs & Weight: Vital Signs (12 hours) Temp Pulse Pulse Pulse Resp BP BP 01/14/18 10:23 51 L 97/47 L 01/14/18 08:48 50 L 51 L 104/69 01/14/18 04:00 97.7 F 57 L 18 BP BP Pulse Ox Pulse Ox 01/14/18 10:23 01/14/18 08:48 92/46 L 93 L 01/14/18 04:00 152/63 H 98 Weight Weight 271 lb 5 oz I&O: 01/13/18 01/14/18 01/15/18 06:59 06:59 06:59 Intake Total 1000 500 Balance 1000 500 Result Diagrams: 01/11/18 11:28 01/14/18 12:46 Additional Labs: Accuchecks 01/14/18 01/14/18 01/13/18 11:21 05:57 20:54 POC Glucose 289 H 314 H 273 H 01/13/18 16:47 POC Glucose 299 H Phys Exam - Physical Examination Constitutional: NAD HEENT: PERRLA, moist MMs, sclera anicteric Neck: no JVD, supple, full ROM Respiratory: no wheezing, no rales, no rhonchi, clear to auscultation bilateral Cardiovascular: RRR, no significant murmur, no rub Gastrointestinal: soft, non-tender, no distention, positive bowel sounds Musculoskeletal: no edema, pulses present Neurological: non-focal, moves all 4 limbs Psychiatric: normal affect Deviation from normal: AO x 2 Skin: no rash, normal turgor Dx/Plan (1) OSMANI (acute kidney injury) Code(s): N17.9 - ACUTE KIDNEY FAILURE, UNSPECIFIED Status: Acute Comment: Likely combination of diuresis and cotrast. Will hold ACEi, Lasix and consult nephrology. (2) DM2 (diabetes mellitus, type 2) Status: Acute Qualifiers: Diabetes mellitus complication status: with unspecified complications Diabetes mellitus alf insulin use: with marine oil terminal superintendent use Qualified Code(s) : E11.8 - Type 2 diabetes mellitus with unspecified complications; Z79.4 - assisted (current) use of insulin; Z79.4 - assisted (current) use of insulin; Z79.4 - predatory animal exterminator (current) use of insulin; Z79.4 - predatory animal exterminator (current) use of insulin Comment: Fair control. (3) HTN (hypertension) Code(s): I10 - ESSENTIAL (PRIMARY) HYPERTENSION Status: Acute Qualifiers: Hypertension type: essential hypertension Qualified Code(s): I10 - Essential (primary) hypertension (4) Hypotension Status: Acute Qualifiers: Hypotension type: unspecified hypotension type Qualified Code(s): I95.9 - Hypotension, unspecified Comment: WIll hold Coreg, Lisinopril and monitor BP (5) Physical deconditioning Code(s): R53.81 - OTHER MALAISE Status: Acute Comment: PT/OT and CM on board. (6) Acute on chronic systolic heart failure Code(s): I50.23 - ACUTE ON CHRONIC SYSTOLIC (CONGESTIVE) HEART FAILURE Status : Acute Comment: Will continue Amiodarone. Hold Coreg and Lisinopril. - Plan cont current plan of care, plan discussed w/ family, PT/OT, social media executive * .
--- NOTE | 2018-01-14 19:20 | CON ---
NEPROLOGY CONSULTATION NOTE DATE OF CONSULTATION: 01/14/2018 CONSULTING PHYSICIAN: Dr. Reed. REASON FOR CONSULTATION: Acute kidney injury. REASON FOR ADMISSION: Shortness of breath. HISTORY OF PRESENT ILLNESS: This is a 77-year-old female with a history of hypertension, obesity, di abetes and peripheral vascular disease. PAST MEDICAL HISTORY: Positive for hypertension, obesity, diabetes and peripheral vascular disease. PAST SURGICAL HISTORY: Aortic bypass, CABG, left above knee amputation, hysterectomy and cholecystec erick. HOME MEDICATIONS: Include NovoLog Mix, gabapentin, Plavix, aspirin, lisinopril, Neurontin, Lasix, Pl avix, Coreg, Lipitor, aspirin, amlodipine and amiodarone. ALLERGIES: To PEANUT. SOCIAL HISTORY: No smoking, alcohol or illicit drug abuse. FAMILY HISTORY: No history of any kidney disease. REVIEW OF SYSTEMS: The following complete review of systems was negative, unless otherwise mentioned in the HPI or below: Constitutional: Weight loss or gain, ability to conduct usual activities. Skin: Rash, itching. Eyes: Double vision, pain. ENT/Mouth: Nose bleeding, neck stiffness, pain, tenderness. Cardiovascular: Palpitations, dyspnea on exertion, orthopnea. Respiratory: Shortness of breath, wheezing, cough, hemoptysis, fever or night sweats. Gastrointestinal: Poor appetite, abdominal pain, heartburn, nausea, vomiting, constipation, or diarr hea. Genitourinary: Urgency, frequency, dysuria, nocturia. Musculoskeletal: Pain, swelling. Neurologic/Psychiatric: Anxiety, depression. Allergy/Immunologic: Skin rash, bleeding tendency. PHYSICAL EXAMINATION: GENERAL: This is an obese female in no apparent distress. VITAL SIGNS: Temperature 97.6, pulse 56, respiratory rate 18 and blood pressure 124/62. HEENT: Atraumatic, normocephalic. Oral mucosa is moist. NECK: Supple. No masses. CARDIOVASCULAR: S1 and S2 heard. Rate and rhythm regular. RESPIRATORY: Clear. ABDOMEN: Soft. MUSCULOSKELETAL: 1+ edema. DERMATOLOGIC: No skin rash. NEUROLOGIC: Alert and awake. PSYCHIATRIC: Mood and affect normal. LABORATORY DATA: Potassium is 5.1, BUN is 54 and creatinine is 3.7. ASSESSMENT AND PLAN: 1. Acute kidney injury, most likely multifactorial. I agree with holding the medications including NICKIE inhibitor and Lasix. Hydration, if tolerated her albumin. 2. Hyponatremia. 3. Mild hyperkalemia. 4. Hyperglycemia. 5. Edema, controlled. 6. Hypertension. Avoid nephrotoxins. Her medication list is reviewed. We will change gabapentin dose to renal dose. Renally dose all the medicines. Hold lisinopril and Lasix. We will follow hydration if tolerated. Renal diet. Thank you for the consult.
[2018-01-14] MEDS ORDERED: Gabapentin 300 MG CAP PO SCH (21:00)
[2018-01-14] MEDS: Atorvastatin Calcium 40 MG TAB PO SCH (21:52)
--- NOTE | 2018-01-14 23:56 | CON ---
DATE OF CONSULTATION: 01/14/2018 ELECTROPHYSIOLOGY CONSULTATION REPORT REFERRING PHYSICIAN: Mookie Pruitt M.D. HISTORY OF PRESENT ILLNESS: I am seeing Mrs. Raygoza at our [facility] at the telemetry floor as an electrophysiology java consultant. His problems are: 1. Nonsustained ventricular tachycardia. A. Status post amiodarone loading. 2. Sinus bradycardia in the setting of amiodarone and carvedilol use as well as first degree AV block. 3. History of fall, but the patient denies dizziness or loss of consciousness. 4. Chronic systolic congestive heart failure with left ventricular systolic dysfunction for a 2D echo from 01/07/2018 with left ventricular ejection fraction of 40-45%. 5. Coronary artery risk factors. A. diabetes, hypertension, elevated BMI. 6. History of peripheral vascular disease, status post left above the knee amputation. ALLERGIES: PEANUTS. MEDICATIONS AT HOME: Included lovastatin, insulin, gabapentin, aspirin, amlodipine, clopidogrel, omega 3 fatty acids. Currently, the patient is on carvedilol 6.25 twice a day, lisinopril 2.5 mg daily, amiodarone 400 mg p.o. twice a day. SUBJECTIVE: Mrs. Rodríguez is doing well. She was emergently admitted with congestive heart failure exacerbation with progressive dyspnea. She had some cough, but no chest pain or pressure. BNP was over 1000. She was diuresed and eventually underwent left heart catheterization by Dr. Pruitt on demonstrating 70% distal LAD, 60% proximal LAD, 60% mid circumflex, 100% RCA occlusion. She has been feeling better since diuresis. While considered for discharge he fell down, however, the chart notes near syncopal spell, although the patient denies that. He thinks it was just a slip and fall while being transferred to a wheelchair. There is no corresponding arrhythmia events are documented. She did receive some IV fluids and boluses. Currently denies symptoms, lying in the bed. Overall, the rest of the systems unremarkable. PAST MEDICAL HISTORY: As above. SOCIAL HISTORY: The patient denies smoking, ETOH or drug use. FAMILY HISTORY: Noncontributory. OBJECTIVE DATA: VITAL SIGNS: Blood pressure is 97/47, heart rate 51, respirations 12, the patient is afebrile. GENERAL: She is alert and oriented woman with elevated BMI, in no apparent distress. NECK: Supple. Jugular veins not distended, but difficult to visualize. CHEST: Coarse without crackles. CARDIOVASCULAR: Heart sounds are regular to rate and rhythm, somewhat bradycardic. No murmur or gallop. ABDOMEN: Benign. Bowel sounds positive. EXTREMITIES: Lower extremities without edema, clubbing or cyanosis. Pulses adequate. NEUROLOGIC: The patient is nonfocal. MUSCULOSKELETAL: Without joint swelling or deformities. SKIN: Without rash. DATABASE: The EKGs reviewed reveals sinus rhythm with nonspecific ST-T changes. Telemetry strips do reveal 13-beat run, nonsustained ventricular tachycardia couple of days back and there still may be 5-beat nonsustained VT this morning. Otherwise, she has sinus bradycardia with first degree AV block on the monitor. LABORATORY DATA: White blood count 7.1, hemoglobin 12.5, platelet count is 180. Sodium 132, potassium 5.1, BUN is 54, creatinine is 3. She is progressively worsening from the baseline 1.05. ASSESSMENT AND PLAN: Mrs. Raygoza is a 77-year-old unfortunate woman with history of peripheral vascular disease and coronary artery disease, as detailed above. Also she has a mild to moderately reduced left ventricular systolic function, as detailed above and has nonsustained ventricular arrhythmias. She denies any symptoms in this regard. Although near syncope was noted in the chart, she thinks it was just a slip and fall. EF is only mildy reduced. She has been getting bradycardic on amiodarone therapy. It might be reasonable to stop amiodarone and continue betablocker alone. If bradycardia worsens, pacing could be considered. Hence her left ventricular ejection fraction is not less than 40, I would hold off on EP studies at this time. She is not a clear candidate for ICD implantation. I have to see her as an outpatient. We will discuss with Dr. Pruitt. Thank you again for allowing me to participate in the care of this patient. VALERIANO
[2018-01-15 05:20] LABS: Mean Corpuscular HGB CONC 30.6 g/dL (32.0-36.0); Mean Corpuscular Volume 88.4 fl (81.0-99.0); Mean Platelet Volume 9.8 fL (7.4-10.4); Platelet Count 133 thou/uL (130-400); RBC Distribution Width 15.1 % (11.5-14.5); Red Blood Cell (RBC) Count 4.43 mill/uL (4.20-5.40); White Blood Cell (WBC) Count 7.2 thou/uL (4.8-10.8)
[2018-01-15 05:35] LABS: Anion Gap 11 mmol/L (10-20); BUN (Urea Nitrogen) 58 mg/dL (9.8-20.1); Calc. Creatinine Clearance 36 mL/min (70-130); Carbon Dioxide 30 mmol/L (23-31); Chloride 95 mmol/L (98-107); Estimated GFR-MDRD 23; Glucose 156 mg/dL (83-110); Potassium 4.4 mmol/L (3.5-5.1); Sodium 132 mmol/L (136-145)
[2018-01-15] MEDS: Clopidogrel Bisulfate 75 MG TAB PO SCH (09:48)
[2018-01-15] MEDS: Amiodarone 200 MG TAB PO SCH (09:48)
[2018-01-15] MEDS: Carvedilol 6.25 MG TAB PO SCH (09:49)
[2018-01-15] MEDS: Insulin NPH/Reg Insulin Hm 300 UNITS/3 ML VIAL SC SCH (09:50)
[2018-01-15] MEDS: HumaLOG 300 UNITS/3 ML VIAL SC PRN (11:35)
--- NOTE | 2018-01-15 11:37 | PRG ---
DATE OF SERVICE: 01/15/2018 SUBJECTIVE: Patient was seen and examined at bedside and overnight events noted. Patient denies any shortness of breath or chest pain or palpitation. No history of nausea or vomiting or diarrhea or f ever or chills or cramps. OBJECTIVE: GENERAL: This is a well-built female in no apparent distress. VITAL SIGNS: Temperature 98.1, pulse 60, respiratory rate 20, blood pressure 126/59. HEENT: Atraumatic, normocephalic. Oral mucosa is moist. NECK: Supple. CARDIOVASCULAR: S1, S2 heard. Rate and rhythm regular. RESPIRATORY: Clear to auscultation. GASTROINTESTINAL: Abdomen is soft. MUSCULOSKELETAL: No tenderness. No edema. DERMATOLOGIC: No skin rash. NEUROLOGIC: Alert and awake and oriented x3. No focal neurologic deficits. Moving all the extremiti es. PSYCHIATRIC: Mood and affect normal. LABORATORY DATA: Potassium is 4.4, BUN is 58, creatinine is 2.5. ASSESSMENT AND PLAN: 1. Acute kidney injury. Renal function is showing improvement. 2. Cardiorenal syndrome. 3. Hyperkalemia. 4. Edema. 5. Hypertension. 6. Hyponatremia, stable. 7. Continue to hold medication. Creatinine is better today. We will follow. Avoid nephrotoxins.
[2018-01-15 12:15] VITALS: TEMP 98.9
--- NOTE | 2018-01-15 14:05 | PDOC.CTH ---
Cardiology Progress Note - Subjective EP progress note Patient is resting comfortably in bed talking on the phone. She does not have any cardiac complaints today. She denies any heart racing, palpitations, or chest pain. - Objective Vital Signs Temp Pulse Resp BP BP Pulse Ox 01/15/18 12:00 98.9 F 57 L 16 161/105 H 100 01/15/18 08:00 98.1 F 60 17 126/59 L 94 L 01/15/18 04:00 97.6 F 53 L 18 95/45 L 98 Weight 276 lb 14.4 oz 01/14/18 01/15/18 01/16/18 06:59 06:59 06:59 Intake Total 500 Balance 500 - Labs Result Diagrams: 01/15/18 04:12 01/15/18 04:12 Troponin/CKMB CK-MB (CK-2) 1.9 ng/mL (0-6.6) 01/07/18 06:39 Troponin I 0.055 ng/mL (< 0.028) H 01/07/18 20:34
--- NOTE | 2018-01-15 14:10 | PDOC.CTH ---
<Flora Glaser - Last Filed: 01/15/18 14:09> Cardiology Progress Note - Subjective EP progress note: Patient resting comfortably in bed talking on phone. She has no new cardiac complaints over and has done well overnight. She is anticipating transfer to rehab when a bed is available. No heart racing, palpitations, or chest pain. No increased shortness of breath, productive cough, or bloody sputum. No stroke or stroke like symptoms . - Objective Vital Signs Temp Pulse Resp BP BP Pulse Ox 01/15/18 12:00 98.9 F 57 L 16 161/105 H 100 01/15/18 08:00 98.1 F 60 17 126/59 L 94 L 01/15/18 04:00 97.6 F 53 L 18 95/45 L 98 Weight 276 lb 14.4 oz 01/14/18 01/15/18 01/16/18 06:59 06:59 06:59 Intake Total 500 Balance 500 - Physical Examination General/Neuro: alert & oriented x3, NAD Neck: no JVD present Lungs: CTA, unlabored respirations Heart: RRR, other: (PMI non palpable) Abdomen: NT/ND Extremities: + edema B - Labs Result Diagrams: 01/15/18 04:12 01/15/18 04:12 Troponin/CKMB CK-MB (CK-2) 1.9 ng/mL (0-6.6) 01/07/18 06:39 Troponin I 0.055 ng/mL (< 0.028) H 01/07/18 20:34 - Assessment/Plan 1. Non sustained ventricular tachycardia- 13 beat run on tele previously documented. Currently suppressed with amiodarone and coreg. Stop amiodarone and continue coreg alone, given patients bradycardia 2. 1st degree AV block 3. Bradycardia- likely medication induced. Stop amiodarone and continue with beta-beverley therapy for NSVT. If unresolved with rx adjustment and is truly sinus node disfunction, may require pacemaker implantation. 4. Fall- questionable syncopal episode without correlated arrhythmia, seemingly related to weakness during transfer resulting in a fall. 5. Coronary artery disease- per cardiology 6. Ischemic cardiomyopathy with EF 40-50% by recent studies. Given only moderately reduced EF, she is not a candidate for ICD implantation or EPS at this time. <Juliana,Edgard - Last Filed: 01/17/18 16:23> Cardiology Progress Note - Objective Weight 276 lb 14.4 oz - Labs Result Diagrams: 01/15/18 04:12 01/15/18 04:12 Troponin/CKMB CK-MB (CK-2) 1.9 ng/mL (0-6.6) 01/07/18 06:39 Troponin I 0.055 ng/mL (< 0.028) H 01/07/18 20:34 Attending Addendum - Attending Addendum Date/Time: 01/17/18 [id number] I personally evaluated the patient and discussed the management with Ms Porter. I agree with the History, Examination, Assessment and Plan documented above with any addition or exceptions noted below. 1. Non sustained ventricular tachycardia- 13 beat run on tele previously documented. Currently suppressed with amiodarone and coreg. Stop amiodarone and continue coreg alone, given patients bradycardia. 2. 1st degree AV block 3. Bradycardia- likely medication induced. Stop amiodarone and continue with beta-beverley therapy for NSVT. If unresolved with rx adjustment and is truly sinus node disfunction, may require pacemaker implantation. 4. No definete syncopal episode, but gerneralised weakness oin the setting of low BP, without correlated arrhythmia, seemingly related to weakness during transfer resulting in a fall. 5. Coronary artery disease- per cardiology 6. Ischemic cardiomyopathy with EF 40-50% by recent studies. Given only moderately reduced EF, she is not a candidate for ICD implantation or EPS at this time.
[2018-01-15 14:27] VITALS: BP 130/59
--- NOTE | 2018-01-15 20:26 | DIS ---
DATE OF ADMISSION: 01/07/2018 DATE OF DISCHARGE: 01/15/2018 DISCHARGE DIAGNOSES: Congestive heart failure with reduced ejection fraction, ischemic cardiomyopath y injury, acute kidney injury, type 2 diabetes mellitus, hypertension, physical deconditioning. HISTORY OF PRESENT ILLNESS/HOSPITAL COURSE: A 77-year-old female with history of hypertension, diabe johnny, PVD, who presented with shortness of breath for the past several days before presentation and pr ogressing, was associated with edema, generalized. She denied chest pain, cough, or any other sympto ms. Labs reveals initial troponin of 0.05 and repeat 0.077, BNP was over 1000. Chest x-ray showed n onspecific bilateral mixed interstitial and alveolar infiltrates and a pattern similar to study sever al years ago. Pneumonia versus pulmonary edema versus chronic changes. She was admitted for CHF exa cerbation, started on IV Lasix, daily weights and monitoring of her ins and outs. She also had a str ess test, which showed no evidence of reversible ischemia. Cardiology on board and made recommendati ons. She was started on amiodarone, continued on carvedilol and lisinopril. While in hospital, she developed an acute kidney injury likely due to her diuretics, which were held. Lisinopril was also h eld with improvement of her renal indices. Cardiology also reviewed the patient and recommended disc ontinuing amiodarone due to periods of bradycardia. She also has nonsustained ventricular tachycardi a on imaging. This was due to discontinuing of amiodarone. In addition, she had medication-induced bradycardia and first degree AV block. Recommendation was to stop amiodarone and continue on carvedi lol. Due to her EF of 40% to 50% she is not currently a candidate for ICD. DISCHARGE MEDICATIONS: Aspirin 81 mg daily, atorvastatin 40 mg at bedtime, carvedilol 6.25 mg b.i.d. , Plavix 75 mg daily, gabapentin 600 mg t.i.d. with gabapentin 300 mg at bedtime, furosemide 20 mg da mary as needed for edema. PHYSICAL EXAMINATION: She was examined on the day of discharge. VITAL SIGNS: Stable. Temperature 98.9 degree Fahrenheit, pulse 57, respirations 16, oxygen saturati on 100% on 1.5 liters via nasal cannula, blood pressure 130/59. CONSTITUTIONAL: Not in acute distress, lying comfortably in bed. HEENT: PERRLA. Moist mucous membranes. Sclerae are anicteric. NECK: No JVD. Supple. Full range of movement. RESPIRATORY: No wheezing, rales, or rhonchi. Clear to auscultation bilaterally. CARDIOVASCULAR: Regular rate and rhythm. No significant murmurs or rubs. GASTROINTESTINAL: Soft, nontender, nondistended, positive bowel sounds. MUSCULOSKELETAL: No edema. Pulses present. NEUROLOGICAL: Nonfocal. Moves all limbs continuously. PSYCHIATRIC: Normal affect and mood. Alert and oriented x2. SKIN: No rashes. Normal turgor. Warm and well perfused. IMAGING: Nuclear stress test. Chest x-ray, TTE. CONSULTS: Cardiology and electrophysiology CONDITION AT DISCHARGE: Stable and improved. PROCEDURES: Nuclear stress test. DIET: Heart healthy, diabetic. CARE AND GOALS: To follow up with her primary care physician within 1 week of discharge. Her PCP, Peyton Marrero was called and told the lisinopril is currently being held due to her OSMANI and her furosemide is being given as needed for now. Once she has repeat labs, decision will then be made as to how to proceed with these medications. ACTIVITY: Resume as tolerated and directed by PT/OT. At the time of discharge, 35 minutes including chart review and documentation.
[2018-01-16] MEDS ORDERED: Amiodarone 200 MG TAB PO SCH (09:00)
== END 2018-01-15 15:09 | disposition home or self-care (01) | DRG 287 ==
LOC: ERS 06:01 → ERHOLD 08:41 → 2NO 13:46
PROVIDERS: ADMIT Internal Medicine; ATTEND Internal Medicine
PROC: 4A023N7 Measurement of Cardiac Sampling and Pressure, Left Heart, Percutaneous Approach (ICD-10-PCS; principal; 2018-01-10)
PROC: B2111ZZ Fluoroscopy of Multiple Coronary Arteries using Low Osmolar Contrast (ICD-10-PCS; 2018-01-10)
PROC: B2151ZZ Fluoroscopy of Left Heart using Low Osmolar Contrast (ICD-10-PCS; 2018-01-10)
DX: I11.0 Hypertensive heart disease with heart failure (principal); N17.9 Acute kidney failure, unspecified; I47.2 Ventricular tachycardia; E87.1 Hypo-osmolality and hyponatremia; Z68.41 Body mass index [BMI] 40.0-44.9, adult; E11.51 Type 2 diabetes mellitus with diabetic peripheral angiopathy without gangrene; E87.5 Hyperkalemia; I25.5 Ischemic cardiomyopathy; I50.23 Acute on chronic systolic (congestive) heart failure; E66.9 Obesity, unspecified; R00.1 Bradycardia, unspecified; I44.0 Atrioventricular block, first degree; I16.0 Hypertensive urgency; I25.10 Atherosclerotic heart disease of native coronary artery without angina pectoris; Z99.3 Dependence on wheelchair; Z91.010 Allergy to peanuts; Z88.2 Allergy status to sulfonamides; Z79.82 Long term (current) use of aspirin; Z79.4 Long term (current) use of insulin; Z79.899 Other long term (current) drug therapy; Z89.612 Acquired absence of left leg above knee; Z89.421 Acquired absence of other right toe(s); T46.2X5A Adverse effect of other antidysrhythmic drugs, initial encounter; T50.1X5A Adverse effect of loop [high-ceiling] diuretics, initial encounter; T46.4X5A Adverse effect of angiotensin-converting-enzyme inhibitors, initial encounter; Y92.239 Unspecified place in hospital as the place of occurrence of the external cause
CPT/HCPCS: 36415; 36416; 51702; 71045; 76942; 78452; 80048; 80053; 80076; 81003; 82553; 83880; 84484; 85025; 85027; 93005; 93017; 93306; 93458; 93798; 96374; A4216; A9500; C1769; G8978-GP-CL; G8979-GP-CJ; G8987-GO-CL; G8988-GO-CJ; J1644; J1940; J2001; J2785

== ENCOUNTER 2018-05-25 01:03 | Inpatient (IN) | payer MEDICARE, MEDICAID ==
[2018-05-25 04:16] LABS: #Eosinphils 0.1 thou/uL (0.0-0.7); #Lymphocytes 1.3 thou/uL (1.20-3.40); #Monocytes 0.4 thou/uL (0.11-0.59); #Neutrophils 6.5 thou/uL (1.40-6.50); %Basophils 0.4 % (0.0-1.0); %Eosinophils 0.8 % (0.0-10.0); %Lymphocytes 15.3 % (21.0-51.0); %Monocytes 4.3 % (0.0-10.0); %Neutrophils 79.3 % (42.0-75.0); Mean Corpuscular HGB CONC 31.1 g/dL (32.0-36.0); Mean Corpuscular Hemoglobin 26.7 pg (27.0-31.0); Mean Corpuscular Volume 85.8 fL (78.0-98.0); Mean Platelet Volume 10.3 fL (7.4-10.4); Platelet Count 146 thou/uL (130-400); Red Blood Cell (RBC) Count 5.23 mill/uL (4.20-5.40); White Blood Cell (WBC) Count 8.2 thou/uL (4.8-10.8)
[2018-05-25 04:31] LABS: ALT (SGPT) 15 U/L (8-55); AST (SGOT) 19 U/L (5-34); Albumin 4.1 g/dL (3.4-4.8); Alkaline Phosphatase 128 U/L (40-150); Anion Gap 14 mmol/L (10-20); BUN (Urea Nitrogen) 27 mg/dL (9.8-20.1); Bilirubin, Total 0.8 mg/dL (0.2-1.2); CK (CPK) 213 U/L (29-168); Calc. Creatinine Clearance 0 mL/min (70-130); Calcium 9.4 mg/dL (7.8-10.44); Carbon Dioxide 24 mmol/L (23-31); Chloride 107 mmol/L (98-107); Estimated GFR-MDRD 44; Globulin 4.2 g/dL (2.4-3.5); Glucose 140 mg/dL (83-110); Potassium 4.3 mmol/L (3.5-5.1); Protein, Total 8.3 g/dL (6.0-8.3); Sodium 141 mmol/L (136-145)
[2018-05-25 04:34] LABS: CKMB 4.7 ng/mL (0-6.6); Troponin I 0.034 ng/mL (< 0.028)
[2018-05-25 08:26] VITALS: BMI 47.2
--- NOTE | 2018-05-25 08:36 | RAD ---
PORTABLE CHEST: Date: 05/25/18 HISTORY: Chest pain. Shortness of breath. COMPARISON: 01/07/18. FINDINGS/IMPRESSION: Mild cardiomegaly. Mild vascular engorgement. No confluent infiltrate or significant effusion. POS: [facility]
[2018-05-25] MEDS ORDERED: Acetaminophen 325 MG TAB PO PRN (11:00)
[2018-05-25] MEDS ORDERED: Hydrochlorothiazide 25 MG TAB PO SCH (11:00)
[2018-05-25 11:03] LABS: Troponin I 0.045 ng/mL (< 0.028)
[2018-05-25] MEDS ORDERED: Dextrose 50% Abboject 50 ML SYRINGE SLOW IVP PRN (11:05)
[2018-05-25] MEDS ORDERED: HumaLOG 300 UNITS/3 ML VIAL SC PRN (11:05)
[2018-05-25] MEDS ORDERED: Dextrose 5% in Water 1,000 ML IV PRN (11:05)
[2018-05-25] MEDS ORDERED: Furosemide 40 MG/4 ML VIAL SLOW IVP SCH (11:15)
[2018-05-25] MEDS ORDERED: Clopidogrel Bisulfate 75 MG TAB PO SCH (11:45)
[2018-05-25] MEDS ORDERED: Carvedilol 6.25 MG TAB PO SCH (11:45)
--- NOTE | 2018-05-25 13:05 | EKG ---
Test Reason : FACIAL SWELLING Blood Pressure : / mmHG Vent. Rate : 065 BPM Atrial Rate : 068 BPM P-R Int : 000 ms QRS Dur : 066 ms QT Int : 398 ms P-R-T Axes : 000 133 157 degrees QTc Int : 413 ms Junctional rhythm Right axis deviation Low voltage QRS Cannot rule out Anteroseptal infarct , age undetermined Marked ST abnormality, possible lateral subendocardial injury Abnormal ECG Confirmed by JASON JOE MD ([id number]), manuscript editor ELSA CHAO ([id number]) on 05/25/2018 1:02:58 PM Also confirmed by JASON JOE MD ([id number]), manuscript editor ELSA CHAO ([id number]) on 05/25/2018 1:04:42 PM Referred By: Confirmed By:JASON JOE MD
--- NOTE | 2018-05-25 15:01 | HP ---
PRIMARY CARE PHYSICIAN: None. PRESENTING COMPLAINT: Shortness of breath. HISTORY OF PRESENT ILLNESS: Ms. Sonia Raygoza is a 77-year-old female with a past medical history of CHF with ejection fraction 40%, type 2 diabetes mellitus, hypertension, dyslipidemia, peripheral vascular disease, legal blindness, and obesity, who presents to the emergency room with a 3-day history of shortness of breath. She has chronic respiratory failure and on home oxygen and reports that she has gotten short of breath more in the past couple of days, because she ran out of her oxygen. She also reports a 2-pillow orthopnea and usually she is able to sleep flat. She denies chest pain, palpitations, or PND. She has mild lower extremity edema. Otherwise, she says she has been normal. She also reports she had some swelling on the left side of her face, which actually prompted her to come to the emergency room. She denies fever, chills, cough, sputum production. She has no abdominal or urinary symptoms. PAST MEDICAL HISTORY: As stated in the HPI. PAST SURGICAL HISTORY: Status post left AKA and right toe amputations. Has also had a hysterectomy and cholecystectomy. FAMILY HISTORY: There is a family history of diabetes mellitus, but other family history reviewed and noncontributory. SOCIAL HISTORY: Does not drink alcohol, smoke cigarettes, or use illicit drugs. ALLERGIES: No known drug allergies, but states she is allergic to PEANUTS. HOME MEDICATIONS: Reviewed and placed in the chart. REVIEW OF SYSTEMS: All systems reviewed and negative except as stated in HPI. PHYSICAL EXAMINATION: VITAL SIGNS: Temperature 97.7 degrees Fahrenheit, pulse rate 70, respiratory rate 20, oxygen saturation 94% on 2 liters of nasal cannula, blood pressure on arrival 190/90. GENERAL: She is not in acute distress. She is lying down comfortably in bed on supplemental oxygen. HEENT: Normocephalic, atraumatic. No purulence. Moist mucous membranes. PERRLA, EOMI. NECK: Supple. No JVD. CARDIOVASCULAR: S1 and S2, only with regular rate and rhythm. No murmurs, rubs , or gallops. RESPIRATORY: Likely reduced breath sounds bilaterally, but no overt wheezes or rales. ABDOMEN: Soft, nontender, nondistended. Bowel sounds normoactive. No hepatosplenomegaly. MUSCULOSKELETAL/EXTREMITIES: Minimal right lower extremity edema. NEUROLOGIC: Alert and well oriented to time, place, and person. No focal deficits. SKIN: Warm and dry. Pulses 1+ lower extremity. PSYCHIATRIC: Normal mood and affect. LABORATORY DATA: CBC was largely unremarkable. CMP showed elevated BUN/ creatinine of 27/1.39 (prior to this, the patient has a history of chronic kidney disease). Initial troponin was 0.034 and on repeat was 0.040. BNP was 1395. Chest x-ray showed mild vascular congestion. ASSESSMENT AND PLAN: 1. Acute systolic congestive heart failure exacerbation. 2. Chronic respiratory failure with hypoxia. 3. Chronic kidney disease. 4. Type 2 diabetes mellitus, controlled. 5. Elevated troponin, likely secondary to demand ischemia. 6. Hypertension urgency. 7. Dyslipidemia. 8. Peripheral vascular disease. 9. Legal blindness. 10. Morbid obesity. PLAN: 1. Admit to tele. 2. Start on IV furosemide b.i.d. 40 mg. 3. Cardiology consult will be considered depending on patient's response. 4. We will resume home medications gradually and once they have been confirmed. 5. We will monitor ins and outs as well as weigh patient daily. 6. For her diabetes, she is currently at goal, so we will hold off on her home medications for now as patient is on NPH 50 units a.m. and 40 units p.m. She will be placed on sliding scale insulin, fingerstick glucose before meals and at bedtime, diabetic diet, and hypoglycemia protocol. 7. For her hypertensive urgency, her home medications will be restarted. She takes carvedilol 6.25 mg b.i.d., amlodipine 10 mg daily, and hydrochlorothiazide 25 mg daily. Hydrochlorothiazide will be held for now. 8. For her hyperlipidemia, she will be continued on Lipitor 40 mg daily. 9. Deep venous thrombosis prophylaxis, subcutaneous heparin. CODE STATUS: FULL CODE. MTDD
[2018-05-25] MEDS: Gabapentin 300 MG CAP PO SCH ×2 (15:05→21:22)
[2018-05-25] MEDS: Heparin 5,000 UNITS/ML VIAL SC SCH ×2 (15:06→21:23)
[2018-05-25] MEDS: Furosemide 40 MG/4 ML VIAL SLOW IVP SCH (15:06)
[2018-05-25] MEDS: Carvedilol 6.25 MG TAB PO SCH (21:27)
[2018-05-25] MEDS: Atorvastatin Calcium 40 MG TAB PO SCH (21:27)
[2018-05-26 05:24] LABS: #Eosinphils 0.1 thou/uL (0.0-0.7); #Lymphocytes 1.4 thou/uL (1.20-3.40); #Monocytes 0.4 thou/uL (0.11-0.59); %Eosinophils 1.4 % (0.0-10.0); %Neutrophils 68.6 % (42.0-75.0); Hemoglobin 12.1 g/dL (12.0-16.0); Mean Corpuscular HGB CONC 31.2 g/dL (32.0-36.0); Mean Corpuscular Hemoglobin 26.6 pg (27.0-31.0); Mean Corpuscular Volume 85.5 fL (78.0-98.0); Mean Platelet Volume 10.1 fL (7.4-10.4); Platelet Count 129 thou/uL (130-400); RBC Distribution Width 17.1 % (11.5-14.5); Red Blood Cell (RBC) Count 4.55 mill/uL (4.20-5.40); White Blood Cell (WBC) Count 5.9 thou/uL (4.8-10.8)
[2018-05-26] MEDS: Furosemide 40 MG/4 ML VIAL SLOW IVP SCH ×2 (05:37→13:56)
[2018-05-26 05:42] LABS: Anion Gap 11 mmol/L (10-20); BUN (Urea Nitrogen) 20 mg/dL (9.8-20.1); Calc. Creatinine Clearance 78 mL/min (70-130); Calcium 8.8 mg/dL (7.8-10.44); Carbon Dioxide 32 mmol/L (23-31); Chloride 104 mmol/L (98-107); Estimated GFR-MDRD 51; Glucose 160 mg/dL (83-110); Potassium 3.8 mmol/L (3.5-5.1); Sodium 143 mmol/L (136-145)
[2018-05-26] MEDS ORDERED: Loperamide HCl 2 MG CAP PO PRN (07:36)
[2018-05-26] MEDS ORDERED: Diabetic Tussin 200 MG/10 ML UDCUP PO PRN (07:36)
[2018-05-26] MEDS ORDERED: HYDROcodone/Acetaminophen 5/325 mg Tablet PO PRN (07:36)
[2018-05-26] MEDS ORDERED: Loratadine 10 MG TAB PO PRN (07:36)
[2018-05-26] MEDS ORDERED: Ondansetron ODT 4 MG TAB PO PRN (07:36)
[2018-05-26] MEDS ORDERED: Mag-Al 1200 mg/1200 mg/30 ML UDCUP PO PRN (07:36)
[2018-05-26] MEDS ORDERED: Eucerin (Mineral Oil/Petrolatum,White) 30 gm Jar TOP PRN (07:36)
[2018-05-26] MEDS ORDERED: Senokot 8.6 MG TAB PO PRN (07:36)
[2018-05-26] MEDS ORDERED: Sodium Chloride 0.65% Nasal 44 ML BOT EA NARE PRN (07:36)
[2018-05-26] MEDS ORDERED: hydrALAZINE 20 MG/ML VIAL SLOW IVP PRN (07:36)
[2018-05-26] MEDS ORDERED: Milk Of Magnesia 30 ML UDCUP PO PRN (07:36)
[2018-05-26] MEDS ORDERED: Chloraseptic Spray 180 ml Bottle PO PRN (07:36)
[2018-05-26] MEDS ORDERED: Zolpidem Tartrate 5 MG TAB PO PRN (07:36)
[2018-05-26] MEDS ORDERED: Artificial Tears 18 DROP/0.9 ML EA EYE PRN (07:36)
[2018-05-26] MEDS ORDERED: Nitroglycerin 0.4 MG TAB (25 Tab Bottle) SL PRN (07:36)
[2018-05-26] MEDS ORDERED: Ondansetron HCl/PF 4 MG/2 ML Vial IVP PRN (07:36)
[2018-05-26] MEDS: Gabapentin 300 MG CAP PO SCH ×3 (08:41→20:23)
[2018-05-26] MEDS: Famotidine 20 MG TAB PO SCH ×2 (08:41→20:23)
[2018-05-26] MEDS: Clopidogrel Bisulfate 75 MG TAB PO SCH (08:42)
[2018-05-26] MEDS: Carvedilol 6.25 MG TAB PO SCH ×2 (08:42→20:23)
[2018-05-26] MEDS: Amlodipine 10 MG TAB PO SCH (08:42)
[2018-05-26] MEDS: Heparin 5,000 UNITS/ML VIAL SC SCH ×2 (08:43→20:23)
--- NOTE | 2018-05-26 11:10 | PDOC.PN ---
- Subjective Encounter Start Date: 05/26/18 Encounter Start Time: 07:00 -: old records requested/rev Patient seen and examined for chf. No new complaints. No overnight events - Objective MAR Reviewed: Yes Vital Signs & Weight: Vital Signs (12 hours) Temp Pulse Resp BP BP Pulse Ox 05/26/18 08:42 61 140/77 05/26/18 07:49 98.4 F 61 18 140/77 91 L 05/26/18 07:45 98.4 F 61 18 91 L Result Diagrams: 05/26/18 04:57 05/26/18 04:57 EKG Reviewed by me: Yes (nsr) Phys Exam - Physical Examination Constitutional: NAD HEENT: PERRLA, moist MMs, sclera anicteric Neck: no JVD, supple Respiratory: no wheezing, no rhonchi basal rales Cardiovascular: RRR, no significant murmur, no rub Gastrointestinal: soft, non-tender, no distention, positive bowel sounds morbid obesity left aka, edema+ Neurological: non-focal Lymphatic: no nodes Psychiatric: normal affect Skin: no rash, normal turgor Dx/Plan (1) Acute on chronic combined systolic and diastolic ACC/AHA stage C congestive heart failure Code(s): I50.43 - ACUTE ON CHRONIC COMBINED SYSTOLIC AND DIASTOLIC HRT FAIL Status: Acute (2) Demand ischemia of myocardium Code(s): I24.8 - OTHER FORMS OF ACUTE ISCHEMIC HEART DISEASE Status: Acute (3) Thrombocytopenia Code(s): D69.6 - THROMBOCYTOPENIA, UNSPECIFIED Status: Acute (4) CKD (chronic kidney disease) stage 3, GFR 30-59 ml/min Code(s): N18.3 - CHRONIC KIDNEY DISEASE, STAGE 3 (MODERATE) Status: Chronic (5) DM2 (diabetes mellitus, type 2) Status: Chronic Qualifiers: Comment: (6) Diabetic neuropathy Code(s): E11.40 - TYPE 2 DIABETES MELLITUS WITH DIABETIC NEUROPATHY, UNSP Status: Chronic (7) Dyslipidemia Code(s): E78.5 - HYPERLIPIDEMIA, UNSPECIFIED Status: Chronic (8) HTN (hypertension) Code(s): I10 - ESSENTIAL (PRIMARY) HYPERTENSION Status: Chronic Qualifiers: (9) Left main coronary artery disease Code(s): I25.10 - ATHSCL HEART DISEASE OF [place] CORONARY ARTERY W/O ANG PCTRS Status: Chronic (10) Morbid obesity with BMI of 45.0-49.9, adult Code(s): E66.01 - MORBID (SEVERE) OBESITY DUE TO EXCESS CALORIES; Z68.42 - BODY MASS INDEX (BMI) 45.0-49.9, ADULT Status: Chronic (11) NSVT (nonsustained ventricular tachycardia) Code(s): I47.2 - VENTRICULAR TACHYCARDIA Status: Chronic (12) Blind left eye Code(s): H54.40 - BLINDNESS, ONE EYE, UNSPECIFIED EYE Status: Chronic - Plan cont current plan of care * continue IV lasix * medication reviewed as below * symptomatic treatment * still not euvolemic. and not ready for discharge * will change to inpt status Review of Systems - Review of Systems Eyes: negative: Pain, Vision Change, Conjunctivae Inflammation, Eyelid Inflammation, Redness, Other ENT: negative: Ear Pain, Ear Discharge, Nose Pain, Nose Discharge, Nose Congestion, Mouth Pain, Mouth Swelling, Throat Pain, Throat Swelling, Other Respiratory: Shortness of Breath, SOB with Excertion. negative: Cough, Dry, Hemoptysis, Pleuritic Pain, Sputum, Wheezing Cardiovascular: edema. negative: chest pain, palpitations, orthopnea, paroxysmal nocturnal dyspnea, light headedness, other Gastrointestinal: negative: Nausea, Vomiting, Abdominal Pain, Diarrhea, Constipation, Melena, Hematochezia, Other Genitourinary: negative: Dysuria, Frequency, Incontinence, Hematuria, Retention , Other Musculoskeletal: negative: Neck Pain, Shoulder Pain, Arm Pain, Back Pain, Hand Pain, Leg Pain, Foot Pain, Other Skin: negative: Rash, Lesions, Luis M, Bruising, Other - Medications/Allergies Allergies/Adverse Reactions: Allergies Allergy/AdvReac Type Severity Reaction Status Date / Time peanut Allergy Severe Anaphylaxis Verified 05/25/18 08:26 Medications: Current Medications Acetaminophen (Tylenol) 650 mg PO Q4H PRN PRN Reason: Headache/Fever or Pain Hydrocodone Bitart/Acetaminophen ([place] 5/325) 1 tab PO Q4H PRN PRN Reason: Moderate Pain (4-6) Al Hydroxide/Mg Hydroxide (Maalox) 15 ml PO Q4H PRN PRN Reason: Heartburn or Indigestion Amlodipine Besylate (Norvasc) 10 mg PO DAILY [facility] Last Admin: 05/26/18 08:42 Dose: 10 mg Artificial Tears (Tears Naturale) 0 drop EA EYE PRN PRN PRN Reason: Dry Eyes Aspirin (Aspirin Chewable) 81 mg PO DAILY [facility] Last Admin: 05/26/18 08:42 Dose: 81 mg Atorvastatin Calcium (Lipitor) 40 mg PO HS [facility] Last Admin: 05/25/18 21:27 Dose: 40 mg Carvedilol (Coreg) 6.25 mg PO BID [facility] Last Admin: 05/26/18 08:42 Dose: 6.25 mg Clopidogrel Bisulfate (Plavix) 75 mg PO DAILY [facility] Last Admin: 05/26/18 08:42 Dose: 75 mg Dextrose/Water (Dextrose 50%) 25 gm SLOW IVP PRN PRN PRN Reason: Hypoglycemia Famotidine (Pepcid) 20 mg PO BID [facility] Last Admin: 05/26/18 08:41 Dose: 20 mg Furosemide (Lasix) 40 mg SLOW IVP 0600,1400 [facility] Last Admin: 05/26/18 05:37 Dose: 40 mg Gabapentin (Neurontin) 600 mg PO TID [facility] Last Admin: 05/26/18 08:41 Dose: 600 mg Glucagon (Glucagon) 1 mg IM PRN PRN PRN Reason: Hypoglycemia Guaifenesin (Robitussin Sf) 200 mg PO Q4H PRN PRN Reason: Cough Heparin Sodium (Porcine) (Heparin) 5,000 units SC BID [facility] Last Admin: 05/26/18 08:43 Dose: 5,000 units Hydralazine HCl (Apresoline) 10 mg SLOW IVP Q4H PRN PRN Reason: Systolic BP > 180 Dextrose/Water (D5w) 1,000 mls @ 0 mls/hr IV .Q0M PRN; As Directed PRN Reason: Hypoglycemia Insulin Human Lispro (Humalog) 0 units SC .MILD SLIDING SCALE PRN PRN Reason: Mild Correctional Scale Insulin Human Lispro (Humalog) 0 units SC .BEDTIME SLIDING SC PRN PRN Reason: Bedtime Correctional Scale Last Admin: 05/25/18 21:24 Dose: 2 unit Loperamide HCl (Imodium) 2 mg PO PRN PRN PRN Reason: Diarrhea/Loose Stools Loratadine (Claritin) 10 mg PO DAILYPRN PRN PRN Reason: Sinus Symptoms Magnesium Hydroxide (Milk Of Magnesium) 30 ml PO DAILYPRN PRN PRN Reason: Constipation Mineral Oil/White Petrolatum (Eucerin Cream) 0 gm TOP BIDPRN PRN PRN Reason: Dry Skin Nitroglycerin (Nitrostat) 0.4 mg SL Q5MIN PRN PRN Reason: Chest Pain Ondansetron HCl (Zofran Odt) 4 mg PO Q6H PRN PRN Reason: Nausea/Vomiting Ondansetron HCl (Zofran) 4 mg IVP Q6H PRN PRN Reason: Nausea/Vomiting Phenol (Chloraseptic [place] 180 Ml Bot) 0 ml PO PRN PRN PRN Reason: Sore Throat Senna (Senokot) 2 tab PO HSPRN PRN PRN Reason: Constipation Sodium Chloride (Flush - Normal Saline) 10 ml IVF Q12HR [facility] Last Admin: 05/26/18 08:43 Dose: 10 ml Sodium Chloride (Flush - Normal Saline) 10 ml IVF PRN PRN PRN Reason: Saline Flush Last Admin: 05/26/18 05:38 Dose: 10 ml Sodium Chloride ([place] Nasal [place] 0.65%) 0 ml EA NARE QIDPRN PRN PRN Reason: Nasal Congestion Zolpidem Tartrate (Ambien) 5 mg PO HSPRN PRN PRN Reason: Insomnia
[2018-05-26] MEDS: HumaLOG 300 UNITS/3 ML VIAL SC PRN ×2 (11:33→17:59)
[2018-05-26] MEDS: Atorvastatin Calcium 40 MG TAB PO SCH (20:23)
[2018-05-27] MEDS: Furosemide 40 MG/4 ML VIAL SLOW IVP SCH ×2 (05:09→14:33)
[2018-05-27] MEDS: Heparin 5,000 UNITS/ML VIAL SC SCH ×2 (09:34→20:47)
[2018-05-27] MEDS: HumaLOG 300 UNITS/3 ML VIAL SC PRN ×3 (09:34→17:34)
[2018-05-27] MEDS: Amlodipine 10 MG TAB PO SCH (09:35)
[2018-05-27] MEDS: Carvedilol 6.25 MG TAB PO SCH ×2 (09:35→20:46)
[2018-05-27] MEDS: Famotidine 20 MG TAB PO SCH ×2 (09:35→20:47)
[2018-05-27] MEDS: Gabapentin 300 MG CAP PO SCH ×3 (09:35→20:47)
[2018-05-27] MEDS: Clopidogrel Bisulfate 75 MG TAB PO SCH (09:35)
--- NOTE | 2018-05-27 10:08 | PDOC.PN ---
- Subjective Encounter Start Date: 05/27/18 Encounter Start Time: 07:30 Patient seen and examined for chf exacerbation. No new complaints. No overnight events - Objective MAR Reviewed: Yes Vital Signs & Weight: Vital Signs (12 hours) Temp Pulse Resp BP BP Pulse Ox 05/27/18 09:35 65 147/63 H 05/27/18 07:30 97.7 F 65 18 147/63 H 95 05/27/18 04:45 97.8 F 61 22 H 142/66 H 93 L I&O: 05/26/18 05/27/18 05/28/18 06:59 06:59 06:59 Intake Total 950 Output Total 200 Balance 750 Result Diagrams: 05/26/18 04:57 05/26/18 04:57 EKG Reviewed by me: Yes (nsr) Phys Exam - Physical Examination Constitutional: NAD HEENT: PERRLA, moist MMs, sclera anicteric Neck: no JVD, supple Respiratory: no wheezing, no rhonchi reduced air entry at base Cardiovascular: RRR, no significant murmur, no rub Gastrointestinal: soft, non-tender, no distention, positive bowel sounds Musculoskeletal: pulses present left aka Neurological: non-focal Psychiatric: normal affect, A&O x 3 Skin: no rash, normal turgor Dx/Plan (1) Acute on chronic combined systolic and diastolic ACC/AHA stage C congestive heart failure Code(s): I50.43 - ACUTE ON CHRONIC COMBINED SYSTOLIC AND DIASTOLIC HRT FAIL Status: Acute (2) Demand ischemia of myocardium Code(s): I24.8 - OTHER FORMS OF ACUTE ISCHEMIC HEART DISEASE Status: Acute (3) Thrombocytopenia Code(s): D69.6 - THROMBOCYTOPENIA, UNSPECIFIED Status: Acute (4) CKD (chronic kidney disease) stage 3, GFR 30-59 ml/min Code(s): N18.3 - CHRONIC KIDNEY DISEASE, STAGE 3 (MODERATE) Status: Chronic (5) DM2 (diabetes mellitus, type 2) Status: Chronic Qualifiers: Comment: (6) Diabetic neuropathy Code(s): E11.40 - TYPE 2 DIABETES MELLITUS WITH DIABETIC NEUROPATHY, UNSP Status: Chronic (7) Dyslipidemia Code(s): E78.5 - HYPERLIPIDEMIA, UNSPECIFIED Status: Chronic (8) HTN (hypertension) Code(s): I10 - ESSENTIAL (PRIMARY) HYPERTENSION Status: Chronic Qualifiers: (9) Left main coronary artery disease Code(s): I25.10 - ATHSCL HEART DISEASE OF [place] CORONARY ARTERY W/O ANG PCTRS Status: Chronic (10) Morbid obesity with BMI of 45.0-49.9, adult Code(s): E66.01 - MORBID (SEVERE) OBESITY DUE TO EXCESS CALORIES; Z68.42 - BODY MASS INDEX (BMI) 45.0-49.9, ADULT Status: Chronic (11) NSVT (nonsustained ventricular tachycardia) Code(s): I47.2 - VENTRICULAR TACHYCARDIA Status: Chronic (12) Blind left eye Code(s): H54.40 - BLINDNESS, ONE EYE, UNSPECIFIED EYE Status: Chronic - Plan cont current plan of care * continue diuresis * medication reviewed as below * symptomatic treatment * expecting discharge tomorrow. * wean off oxygen Review of Systems - Review of Systems ENT: negative: Ear Pain, Ear Discharge, Nose Pain, Nose Discharge, Nose Congestion, Mouth Pain, Mouth Swelling, Throat Pain, Throat Swelling, Other Respiratory: negative: Cough, Dry, Shortness of Breath, Hemoptysis, SOB with Excertion, Pleuritic Pain, Sputum, Wheezing Cardiovascular: negative: chest pain, palpitations, orthopnea, paroxysmal nocturnal dyspnea, edema, light headedness, other Gastrointestinal: negative: Nausea, Vomiting, Abdominal Pain, Diarrhea, Constipation, Melena, Hematochezia, Other Genitourinary: negative: Dysuria, Frequency, Incontinence, Hematuria, Retention , Other Musculoskeletal: negative: Neck Pain, Shoulder Pain, Arm Pain, Back Pain, Hand Pain, Leg Pain, Foot Pain, Other Skin: negative: Rash, Lesions, Luis M, Bruising, Other - Medications/Allergies Allergies/Adverse Reactions: Allergies Allergy/AdvReac Type Severity Reaction Status Date / Time peanut Allergy Severe Anaphylaxis Verified 05/25/18 08:26 Medications: Current Medications Acetaminophen (Tylenol) 650 mg PO Q4H PRN PRN Reason: Headache/Fever or Pain Hydrocodone Bitart/Acetaminophen ([place] 5/325) 1 tab PO Q4H PRN PRN Reason: Moderate Pain (4-6) Al Hydroxide/Mg Hydroxide (Maalox) 15 ml PO Q4H PRN PRN Reason: Heartburn or Indigestion Amlodipine Besylate (Norvasc) 10 mg PO DAILY [facility] Last Admin: 05/27/18 09:35 Dose: 10 mg Artificial Tears (Tears Naturale) 0 drop EA EYE PRN PRN PRN Reason: Dry Eyes Aspirin (Aspirin Chewable) 81 mg PO DAILY [facility] Last Admin: 05/27/18 09:35 Dose: 81 mg Atorvastatin Calcium (Lipitor) 40 mg PO HS [facility] Last Admin: 05/26/18 20:23 Dose: 40 mg Carvedilol (Coreg) 6.25 mg PO BID [facility] Last Admin: 05/27/18 09:35 Dose: 6.25 mg Clopidogrel Bisulfate (Plavix) 75 mg PO DAILY [facility] Last Admin: 05/27/18 09:35 Dose: 75 mg Dextrose/Water (Dextrose 50%) 25 gm SLOW IVP PRN PRN PRN Reason: Hypoglycemia Famotidine (Pepcid) 20 mg PO BID [facility] Last Admin: 05/27/18 09:35 Dose: 20 mg Furosemide (Lasix) 40 mg SLOW IVP 0600,1400 [facility] Last Admin: 05/27/18 05:09 Dose: 40 mg Gabapentin (Neurontin) 600 mg PO TID [facility] Last Admin: 05/27/18 09:35 Dose: 600 mg Glucagon (Glucagon) 1 mg IM PRN PRN PRN Reason: Hypoglycemia Guaifenesin (Robitussin Sf) 200 mg PO Q4H PRN PRN Reason: Cough Heparin Sodium (Porcine) (Heparin) 5,000 units SC BID [facility] Last Admin: 05/27/18 09:34 Dose: 5,000 units Hydralazine HCl (Apresoline) 10 mg SLOW IVP Q4H PRN PRN Reason: Systolic BP > 180 Dextrose/Water (D5w) 1,000 mls @ 0 mls/hr IV .Q0M PRN; As Directed PRN Reason: Hypoglycemia Insulin Human Lispro (Humalog) 0 units SC .MILD SLIDING SCALE PRN PRN Reason: Mild Correctional Scale Last Admin: 05/27/18 09:34 Dose: 3 unit Insulin Human Lispro (Humalog) 0 units SC .BEDTIME SLIDING SC PRN PRN Reason: Bedtime Correctional Scale Last Admin: 05/25/18 21:24 Dose: 2 unit Loperamide HCl (Imodium) 2 mg PO PRN PRN PRN Reason: Diarrhea/Loose Stools Loratadine (Claritin) 10 mg PO DAILYPRN PRN PRN Reason: Sinus Symptoms Magnesium Hydroxide (Milk Of Magnesium) 30 ml PO DAILYPRN PRN PRN Reason: Constipation Mineral Oil/White Petrolatum (Eucerin Cream) 0 gm TOP BIDPRN PRN PRN Reason: Dry Skin Nitroglycerin (Nitrostat) 0.4 mg SL Q5MIN PRN PRN Reason: Chest Pain Ondansetron HCl (Zofran Odt) 4 mg PO Q6H PRN PRN Reason: Nausea/Vomiting Ondansetron HCl (Zofran) 4 mg IVP Q6H PRN PRN Reason: Nausea/Vomiting Phenol (Chloraseptic [place] 180 Ml Bot) 0 ml PO PRN PRN PRN Reason: Sore Throat Senna (Senokot) 2 tab PO HSPRN PRN PRN Reason: Constipation Sodium Chloride (Flush - Normal Saline) 10 ml IVF Q12HR [facility] Last Admin: 05/27/18 09:34 Dose: 10 ml Sodium Chloride (Flush - Normal Saline) 10 ml IVF PRN PRN PRN Reason: Saline Flush Last Admin: 05/26/18 13:56 Dose: 10 ml Sodium Chloride ([place] Nasal [place] 0.65%) 0 ml EA NARE QIDPRN PRN PRN Reason: Nasal Congestion Zolpidem Tartrate (Ambien) 5 mg PO HSPRN PRN PRN Reason: Insomnia
[2018-05-27] MEDS: Atorvastatin Calcium 40 MG TAB PO SCH (20:47)
[2018-05-28 04:18] VITALS: TEMP 97.6
[2018-05-28] MEDS: Furosemide 40 MG/4 ML VIAL SLOW IVP SCH (05:56)
[2018-05-28] MEDS: Heparin 5,000 UNITS/ML VIAL SC SCH (08:53)
[2018-05-28] MEDS: Gabapentin 300 MG CAP PO SCH (08:54)
[2018-05-28] MEDS: Amlodipine 10 MG TAB PO SCH (08:54)
[2018-05-28] MEDS: Clopidogrel Bisulfate 75 MG TAB PO SCH (08:54)
[2018-05-28] MEDS: Carvedilol 6.25 MG TAB PO SCH (08:54)
[2018-05-28] MEDS: Famotidine 20 MG TAB PO SCH (08:55)
[2018-05-28 09:00] VITALS: BP 136/63
--- NOTE | 2018-05-28 11:04 | DIS ---
DATE OF ADMISSION: 05/26/2018 DATE OF DISCHARGE: 05/28/2018 PRIMARY CARE PHYSICIAN: Dr. Reagan Ignacio. DISCHARGE DISPOSITION: Home. PRIMARY DISCHARGE DIAGNOSES: Acute on chronic combined systolic and diastolic congestive heart failu re, demand ischemia of myocardium, thrombocytopenia. 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 PRIMARY PROCEDURE AND OPERATION: None. RADIOLOGICAL INVESTIGATION: Chest x-ray showed pulmonary vascular congestion. SIGNIFICANT LABORATORY DATA: WBC 5.9, hemoglobin 12.1, platelet 129. Sodium 143, creatinine 1.24, c alcium 8.8. BNP 1395. DISCHARGE MEDICATIONS: Aspirin 81 mg p.o. daily, Lipitor 40 mg p.o. at bedtime, Coreg 6.25 mg p.o. b .i.d., Plavix 75 mg p.o. daily, Lasix 40 mg p.o. daily, Neurontin 600 mg p.o. t.i.d., insulin 70/30, 15 units in the evening and 40 units in morning, lisinopril 2.5 mg p.o. daily, fish oil 1000 mg p.o. daily. CONTRAINDICATIONS: None. CODE STATUS: FULL CODE. INPATIENT CONSULTANTS: None. ALLERGIES: PEANUT. DISCHARGE PLAN: Post hospital, the patient will follow up with primary care physician. The patient is instructed to follow up with [facility]. The patient is also instructed to follow up [facility] primary parliamentary archivist, Dr. Pruitt as well as Dr. Porras. HOSPITAL COURSE: A 77-year-old female who was admitted by Dr. Reed. Please see his H&P for furt her detail. The patient presented to the hospital with facial swelling, but she was found with CHF e xacerbation based on her clinical presentation, she was also having increasing shortness of breath. She does have chronic respiratory failure and she is using oxygen as needed basis at home. She was t reated with IV Lasix while in hospital. She was euvolemic by the time of discharge. During this admission, we discontinued amlodipine, but instead we started lisinopril for her systolic heart failure. She does have home oxygen and she does have family to take care of her. She has a l eft [id number] amputation. The patient is seen and examined at bedside today. Discharge medication discussed with the patient. All new medication prescription sent to her pharmacy. Overall, the patient is medically stable for discharge today.
== END 2018-05-28 11:25 | disposition home or self-care (01) | DRG 291 ==
LOC: ERS 01:03 → 2SE 07:44 → OBSVTOIN 05-26 07:07 → 2NO 05-26 18:50
PROVIDERS: ADMIT Internal Medicine; ATTEND Internal Medicine
DX: I13.0 Hypertensive heart and chronic kidney disease with heart failure and stage 1 through stage 4 chronic kidney disease, or unspecified chronic kidney disease (principal); I50.43 Acute on chronic combined systolic (congestive) and diastolic (congestive) heart failure; I47.2 Ventricular tachycardia; Z68.42 Body mass index [BMI] 45.0-49.9, adult; J96.11 Chronic respiratory failure with hypoxia; I24.8 Other forms of acute ischemic heart disease; E11.22 Type 2 diabetes mellitus with diabetic chronic kidney disease; N18.3 Chronic kidney disease, stage 3 (moderate); Z79.4 Long term (current) use of insulin; D69.6 Thrombocytopenia, unspecified; I25.10 Atherosclerotic heart disease of native coronary artery without angina pectoris; E78.5 Hyperlipidemia, unspecified; E11.40 Type 2 diabetes mellitus with diabetic neuropathy, unspecified; E11.51 Type 2 diabetes mellitus with diabetic peripheral angiopathy without gangrene; H54.40 Blindness, one eye, unspecified eye; Z99.81 Dependence on supplemental oxygen; I16.0 Hypertensive urgency; E66.01 Morbid (severe) obesity due to excess calories
CPT/HCPCS: 36415; 36416; 71045; 80048; 80053; 82550; 82553; 82947; 83880; 84484; 85025; 93005; 94760; A4216; J1644; J1940

== ENCOUNTER 2018-08-27 09:43 | Inpatient (IN) | payer MEDICARE, MEDICAID ==
[2018-08-27 10:26] LABS: #Eosinphils 0.1 thou/uL (0.0-0.7); #Lymphocytes 1.1 thou/uL (1.20-3.40); #Monocytes 0.6 thou/uL (0.11-0.59); #Neutrophils 6.9 thou/uL (1.40-6.50); %Basophils 0.1 % (0.0-1.0); %Eosinophils 1.2 % (0.0-10.0); %Lymphocytes 12.2 % (21.0-51.0); %Monocytes 6.7 % (0.0-10.0); %Neutrophils 79.8 % (42.0-75.0); Hemoglobin 12.4 g/dL (12.0-16.0); Mean Corpuscular HGB CONC 30.3 g/dL (32.0-36.0); Mean Corpuscular Hemoglobin 25.7 pg (27.0-31.0); Mean Platelet Volume 9.9 fL (7.4-10.4); Platelet Count 173 thou/uL (130-400); RBC Distribution Width 17.5 % (11.5-14.5); Red Blood Cell (RBC) Count 4.83 mill/uL (4.20-5.40); White Blood Cell (WBC) Count 8.7 thou/uL (4.8-10.8)
[2018-08-27 10:41] LABS: Bilirubin Small (Negative); Blood, Urine Large (Negative); Clarity CLOUDY (Clear); Glucose, Urine (Dipstick) Negative (Negative); Leukocyte Moderate (Negative); Nitrite Negative (Negative); Protein, Urine (Dipstick) 30 mg/dL (Neg-Trace); Specific Gravity, Urine 1.014 (1.002-1.036)
[2018-08-27 10:44] LABS: Bacteria/HPF 1+ HPF (None Seen); Hyaline Casts/LPF 4-6 HYALINE CAST LPF (0-3 Hyaline); Pathc Cast-AUWi Flag 0.87 (0-2.49); RBC/HPF GREATER THAN 50-TNTC HPF (0-3); Squamous Epithelial 0-3 HPF (0-3)
[2018-08-27 10:57] LABS: ALT (SGPT) 19 U/L (8-55); AST (SGOT) 17 U/L (5-34); Albumin 3.6 g/dL (3.4-4.8); Alkaline Phosphatase 98 U/L (40-150); Anion Gap 20 mmol/L (10-20); BUN (Urea Nitrogen) 83 mg/dL (9.8-20.1); Bilirubin, Total 0.7 mg/dL (0.2-1.2); Calc. Creatinine Clearance 0 mL/min (70-130); Calcium 8.9 mg/dL (7.8-10.44); Carbon Dioxide 18 mmol/L (23-31); Chloride 99 mmol/L (98-107); Estimated GFR-MDRD 9; Globulin 4.3 g/dL (2.4-3.5); Glucose 276 mg/dL (83-110); Potassium 5.1 mmol/L (3.5-5.1); Protein, Total 7.9 g/dL (6.0-8.3); Sodium 132 mmol/L (136-145)
--- NOTE | 2018-08-27 11:41 | RAD ---
PORTABLE CHEST 1 VIEW: DATE: 08/27/18. Time: 10:51 a.m. HISTORY: Weakness, tremors, CHF, diabetes. FINDINGS: Comparison is made with the exam of 05/25/18. The heart is enlarged. There is pulmonary vascular congestion. Patchy airspace disease is seen in t he lower lung [place]. No pneumothoraces or large pleural effusions are identified POS: [facility]
[2018-08-27 13:02] LABS: CKMB 3.3 ng/mL (0-6.6)
[2018-08-27 13:03] LABS: Lactate 1.61 mmol/L (0.50-2.20)
[2018-08-27 13:06] LABS: Troponin I 0.992 ng/mL (< 0.028)
[2018-08-27] MEDS ORDERED: Ondansetron ODT 4 MG TAB PO PRN ×2 (13:49→14:21)
[2018-08-27] MEDS ORDERED: Ondansetron PF 4 MG/2 ML Vial IVP PRN ×2 (13:49→14:21)
[2018-08-27] MEDS ORDERED: Acetaminophen 325 MG TAB PO PRN (13:50)
[2018-08-27] MEDS ORDERED: Sodium Chloride 0.9% 1,000 ML IV SCH (14:00)
[2018-08-27] MEDS ORDERED: Dextrose 5% in Water 1,000 ML IV PRN (14:21)
[2018-08-27] MEDS ORDERED: Dextrose 50% Abboject 50 ML SYRINGE SLOW IVP PRN (14:21)
[2018-08-27] MEDS: Cefepime 1 GM in Sodium Chloride 0.9% 100 ML IVPB SCH (15:31)
[2018-08-27] MEDS: Sodium Chloride 0.9% 1,000 ML IV SCH (15:31)
[2018-08-27] MEDS: Heparin 5,000 UNITS/ML VIAL SC SCH ×2 (15:31→19:36)
[2018-08-27] MEDS: Gabapentin 300 MG CAP PO SCH ×2 (15:31→21:44)
--- NOTE | 2018-08-27 15:47 | PDOC.EVN ---
Event Note - Event Note Event Note: H&P dictated admit to inpatient for UTI, wekaness, OSMANI and dehydration from diuresis, CKD and hx HTN. gentle hydration, renal consult (Halle Helton), I/O and daily weight, AM labs. Hold lasix
[2018-08-27 16:48] LABS: Critical Call Chem Troponin I RESULT DECREASING; Troponin I 0.916 ng/mL (< 0.028)
[2018-08-27] MEDS: HumaLOG 300 UNITS/3 ML VIAL SC PRN ×2 (18:03→23:14)
[2018-08-27] MEDS: Insulin NPH/Reg Insulin Hm 300 UNITS/3 ML VIAL SC SCH (18:03)
[2018-08-27] MEDS: Atorvastatin Calcium 40 MG TAB PO SCH ×2 (19:38→19:40)
[2018-08-27] MEDS: Famotidine 20 MG TAB PO SCH (19:39)
[2018-08-27] MEDS: Carvedilol 6.25 MG TAB PO SCH (19:39)
[2018-08-27 19:45] LABS: Critical Call Chem Troponin I RESULT DECREASING; Troponin I 0.774 ng/mL (< 0.028)
[2018-08-27] MEDS ORDERED: Heparin 10,000 UNITS/ 10 ML VIAL ONE (23:12)
--- NOTE | 2018-08-28 02:48 | CON ---
DATE OF CONSULTATION: 08/27/2018 CONSULTING PHYSICIAN: Dr. Paz. REASON FOR CONSULTATION: Acute kidney injury. REASON FOR ADMISSION: Altered mentation. HISTORY OF PRESENT ILLNESS: This is a 77-year-old female with history of CHF, CKD, hypertension, hyp erlipidemia, who came to the hospital with above complaints and Nephrology is consulted for acute kid duc injury. Her creatinine was found to be 5.3 from a baseline of 1.9, potassium is 5.1. Patient seems to have dehydration and was not having good p.o. intake. No fever or chills, no chest pain. PAST MEDICAL HISTORY: Positive for CHF, CKD, hyperlipidemia, hypertension, peripheral vascular disea se, obesity, blindness. PAST SURGICAL HISTORY: AKA, hysterectomy, cholecystectomy. HOME MEDICATIONS: List included lisinopril, Lasix, Plavix, Humulin, aspirin, Norvasc, Lipitor, Coreg , Neurontin. ALLERGIES: PEANUTS. SOCIAL HISTORY: No smoking, alcohol, or illicit drug abuse. FAMILY HISTORY: No history of kidney disease. REVIEW OF SYSTEMS: Could not be obtained. PHYSICAL EXAMINATION: GENERAL: This is an obese female in no apparent distress. VITAL SIGNS: Temperature 97, pulse 65, respiratory rate , blood pressure 113/61. HEENT: Atraumatic, normocephalic. Oral mucosa is moist. NECK: Supple, no masses. HEART: S1, S2. Rate and rhythm regular. RESPIRATORY: Clear. MUSCULOSKELETAL: 1+ edema. DERMATOLOGIC: No skin rash. NEUROLOGICAL: Confused. LABORATORY DATA: Potassium is 5.1, BUN is 83, creatinine is 5.3, hemoglobin is 12.4. ASSESSMENT AND PLAN: 1. Acute kidney injury, on chronic kidney disease stage 3, agree with hydration, avoid nephrotoxins. 2. Hyperkalemia. Limit potassium intake. 3. Hyponatremia. 4. Metabolic acidosis. 5. Mild hypoalbuminemia. 6. Pyuria, rule out infection. 7. We will continue hydration, avoid nephrotoxins. We will follow. Thank you for the consult.
[2018-08-28 05:33] LABS: Anion Gap 20 mmol/L (10-20); BUN (Urea Nitrogen) 84 mg/dL (9.8-20.1); Calc. Creatinine Clearance 21 mL/min (70-130); Calcium 8.6 mg/dL (7.8-10.44); Carbon Dioxide 18 mmol/L (23-31); Chloride 101 mmol/L (98-107); Estimated GFR-MDRD 11; Glucose 93 mg/dL (83-110); Magnesium 2.6 mg/dL (1.6-2.6); Potassium 5.2 mmol/L (3.5-5.1); Sodium 134 mmol/L (136-145)
[2018-08-28] MEDS: Sodium Chloride 0.9% 1,000 ML IV SCH ×2 (06:01→17:21)
--- NOTE | 2018-08-28 09:30 | CON ---
DATE OF CONSULTATION: 08/28/2018 REASON FOR CONSULTATION: Pauses. HISTORY OF PRESENT ILLNESS: Ms. Raygoza is a 69-year-old woman who recently presented with acute on chr onic renal failure. Her main complaint was weakness. Her daughter states she was constipated last w [facility]. She was given a suppository. She had a significant bowel movements noted on , Sunday, and Sunday. She became weak yesterday. No chest pain or pressure, dizziness, lightheadedness, syn cope, presyncope. After reviewing her previous EKG she has no previous history of underlying atrial fibrillation. This appears to be a new finding. PAST MEDICAL HISTORY: Severe PVD, status post amputation of the left lower extremity, diastolic hear t failure, hyperlipidemia, hypertension, obesity, blindness, hysterectomy, cholecystectomy. CURRENT MEDICATIONS: Lisinopril, Lasix, Coreg, Neurontin, Plavix, Humulin, aspirin, Norvasc and Lipi tor. ALLERGIES: PEANUTS. FAMILY HISTORY: Negative for CAD. REVIEW OF SYSTEMS: Ten point review of systems is reviewed and as above, otherwise negative. PHYSICAL EXAMINATION: VITAL SIGNS: Blood pressure 107/58, pulse 70, temperature afebrile. GENERAL: She is morbidly obese and blind. NEUROLOGIC: The patient is alert and oriented times 3 with no focal neurologic deficits. HEENT: Sclerae without icterus. Mouth has moist mucous membranes with normal pallor. NECK: No JVD. Carotid upstroke brisk. No bruits bilaterally. LUNGS: Clear to auscultation with unlabored respirations. BACK: No scoliosis or kyphosis. CARDIAC: Regular rate and rhythm with normal S1 and S2. No S3 or S4 noted. No significant rubs, mur murs, thrills, or gallops noted throughout the precordium. PMI is not displaced. There is no parast ernal heave. ABDOMEN: Soft, nontender, nondistended. No peritoneal signs present. No hepatosplenomegaly. No abn ormal striae. EXTREMITIES: Left [id number] amputation. SKIN: No gross abnormalities. PERTINENT LABS: Hemoglobin 12.4, creatinine 4.57 which is down from 5, potassium 5.2, sodium 134. Troponin 0.777. EKG shows atrial fibrillation with nonspecific ST-T wave changes. IMPRESSION: 1. Pauses. 2. Atrial fibrillation. 3. Weakness. 4. Acute on chronic renal failure. RECOMMENDATIONS: Atrial fibrillation is felt to be a new finding. I discussed risks and benefits of anticoagulation therapy. They are agreeable. Would stop Plavix and add novel oral anticoagulation therapy when she is close to discharge. At this point, would continue with Lovenox. Her pauses are not felt to be significant. They are at 3 seconds. She has no current symptoms. With underlying at rial fibrillation would meet criteria for a pacer when is closer to 5 seconds. Continue close observ ation. Continue IV fluids. She is likely prerenal.
[2018-08-28] MEDS: Insulin NPH/Reg Insulin Hm 300 UNITS/3 ML VIAL SC SCH ×2 (10:09→17:22)
[2018-08-28 10:10] LABS: Band 4 % (5-11); Eosinophils 1 % (0-10); Hemoglobin 12.1 g/dL (12.0-16.0); Lymphocytes 15 % (21-51); MDiff Complete? YES; Mean Corpuscular HGB CONC 31.5 g/dL (32.0-36.0); Mean Corpuscular Hemoglobin 26.6 pg (27.0-31.0); Mean Corpuscular Volume 84.3 fL (78.0-98.0); Mean Platelet Volume 11.3 fL (7.4-10.4); Metamyelocyte 2 % (0-0); Monocytes 5 % (0-10); Neutrophil 73 % (42-75); Platelet Count 135 thou/uL (130-400); RBC Distribution Width 17.1 % (11.5-14.5); Red Blood Cell (RBC) Count 4.55 mill/uL (4.20-5.40); White Blood Cell (WBC) Count 8.7 thou/uL (4.8-10.8)
[2018-08-28] MEDS: Heparin 5,000 UNITS/ML VIAL SC SCH ×3 (10:14→21:59)
[2018-08-28] MEDS: Acetaminophen 325 MG TAB PO PRN (10:15)
[2018-08-28] MEDS: Clopidogrel Bisulfate 75 MG TAB PO SCH (10:16)
[2018-08-28] MEDS: Famotidine 20 MG TAB PO SCH ×2 (10:17→21:58)
[2018-08-28] MEDS: Carvedilol 6.25 MG TAB PO SCH ×2 (10:17→21:58)
[2018-08-28] MEDS: Gabapentin 300 MG CAP PO SCH ×2 (10:30→21:58)
[2018-08-28] MEDS ORDERED: Gabapentin 300 MG CAP PO SCH (10:30)
[2018-08-28] MEDS: Cefepime 1 GM in Sodium Chloride 0.9% 100 ML IVPB SCH (14:59)
--- NOTE | 2018-08-28 18:39 | PRG ---
DATE OF SERVICE: 08/28/2018. SUBJECTIVE: Patient was seen and examined at bedside and overnight events noted. Patient denies any shortness of breath or chest pain or palpitation. No history of nausea or vomiting or diarrhea or f ever or chills or cramps. OBJECTIVE: GENERAL: This is an obese female in no apparent distress. VITAL SIGNS: , blood pressure 153/53. HEENT: Atraumatic, normocephalic. Oral mucosa is moist. NECK: Supple. CARDIOVASCULAR: S1, S2 heard. Rate and rhythm regular. RESPIRATORY: Clear to auscultation. GASTROINTESTINAL: Abdomen is soft. MUSCULOSKELETAL: No tenderness. No edema. DERMATOLOGIC: No skin rash. NEUROLOGIC: Alert and awake and oriented x3. No focal neurologic deficits. Moving all the extremiti es. PSYCHIATRIC: Mood and affect normal. LABORATORY DATA: Potassium is 5.2, BUN 84, creatinine is 4.5. ASSESSMENT AND PLAN: 1. Acute kidney injury on chronic kidney disease, slightly better. Continue supportive care, avoid nephrotoxins. 2. Hyperkalemia. Limit potassium in the diet. 3. Metabolic acidosis and pyuria. Follow cultures. 4. Continue intravenous fluids and supportive care as tolerated. Avoid nephrotoxins.
[2018-08-28] MEDS: Atorvastatin Calcium 40 MG TAB PO SCH (21:59)
[2018-08-29] MEDS: Acetaminophen 325 MG TAB PO PRN ×2 (05:43→11:36)
[2018-08-29] MEDS: Heparin 5,000 UNITS/ML VIAL SC SCH (08:58)
[2018-08-29] MEDS: Carvedilol 6.25 MG TAB PO SCH ×2 (08:58→21:45)
[2018-08-29] MEDS: Clopidogrel Bisulfate 75 MG TAB PO SCH (08:58)
[2018-08-29] MEDS: Gabapentin 300 MG CAP PO SCH ×2 (08:58→21:07)
[2018-08-29] MEDS: Insulin NPH/Reg Insulin Hm 300 UNITS/3 ML VIAL SC SCH ×2 (09:12→17:43)
[2018-08-29] MEDS: Sodium Chloride 0.9% 1,000 ML IV SCH (09:13)
[2018-08-29 10:18] LABS: #Eosinphils 0.1 thou/uL (0.0-0.7); #Lymphocytes 1.4 thou/uL (1.20-3.40); #Monocytes 0.5 thou/uL (0.11-0.59); #Neutrophils 5.8 thou/uL (1.40-6.50); %Eosinophils 1.1 % (0.0-10.0); %Lymphocytes 17.5 % (21.0-51.0); %Monocytes 6.9 % (0.0-10.0); %Neutrophils 74.5 % (42.0-75.0); Hemoglobin 11.1 g/dL (12.0-16.0); Mean Corpuscular HGB CONC 29.5 g/dL (32.0-36.0); Mean Corpuscular Hemoglobin 25.4 pg (27.0-31.0); Mean Platelet Volume 9.4 fL (7.4-10.4); Platelet Count 198 thou/uL (130-400); RBC Distribution Width 17.1 % (11.5-14.5); Red Blood Cell (RBC) Count 4.39 mill/uL (4.20-5.40); White Blood Cell (WBC) Count 7.7 thou/uL (4.8-10.8)
[2018-08-29 10:34] LABS: Anion Gap 19 mmol/L (10-20); BUN (Urea Nitrogen) 92 mg/dL (9.8-20.1); Calc. Creatinine Clearance 21 mL/min (70-130); Calcium 8.6 mg/dL (7.8-10.44); Carbon Dioxide 15 mmol/L (23-31); Chloride 102 mmol/L (98-107); Estimated GFR-MDRD 11; Glucose 154 mg/dL (83-110); Magnesium 2.4 mg/dL (1.6-2.6); Potassium 5.3 mmol/L (3.5-5.1); Sodium 131 mmol/L (136-145)
--- NOTE | 2018-08-29 13:31 | PDOC.CTH ---
Cardiology Progress Note - Subjective More lucid today. No complaints. - Objective Vital Signs Temp Pulse Resp BP Pulse Ox 08/29/18 11:10 97.4 F L 65 16 109/51 L 95 08/29/18 08:53 98.3 F 56 L 16 129/61 94 L 08/29/18 08:50 94 L 08/29/18 03:27 97.3 F L 59 L 18 117/55 L 92 L Weight 291 lb 14.4 oz 08/28/18 08/29/18 08/30/18 06:59 06:59 06:59 Intake Total 1740 1071 Balance 1740 1071 - Physical Examination General/Neuro: alert & oriented x3, NAD Neck: carotid US brisk, no JVD present Lungs: unlabored respirations Heart: PMI normal, other: (irr) Abdomen: no HSM, NT/ND Extremities: + edema B - Labs Result Diagrams: 08/29/18 10:07 08/29/18 10:07 Troponin/CKMB CK-MB (CK-2) 3.3 ng/mL (0-6.6) 08/27/18 12:24 Troponin I 0.774 ng/mL (< 0.028) H* 08/27/18 19:12 - Assessment/Plan Afib with pauses Chronic kidney disease UTI MS changes Pt without symptoms. Pauses noted up to 3.5 seconds. Given no symptoms, conitnue close observation Will need ACT prior to going home Add lovenox QAM for coverage for now
[2018-08-29] MEDS: Cefepime 1 GM in Sodium Chloride 0.9% 100 ML IVPB SCH (15:59)
--- NOTE | 2018-08-29 18:27 | PRG ---
DATE OF SERVICE: 08/29/2018 SUBJECTIVE: Patient was seen and examined at bedside and overnight events noted. Patient denies any shortness of breath or chest pain or palpitation. No history of nausea or vomitin g or diarrhea or fever or chills or cramps. OBJECTIVE: GENERAL: This is a morbidly obese female, in no apparent distress. VITAL SIGNS: Temperature 97.6, pulse 42, respiratory rate 18, blood pressure 107/50. HEENT: Atraumatic, normocephalic. Oral mucosa is moist. NECK: Supple. CARDIOVASCULAR: S1 and S2 heard. Rate and rhythm regular. RESPIRATORY: Clear to auscultation. GASTROINTESTINAL: Abdomen is soft. MUSCULOSKELETAL: No tenderness. No edema. DERMATOLOGIC: No skin rash. NEUROLOGIC: Alert and awake and oriented x3. No focal neurologic deficits. Moving all the extremit ies. PSYCHIATRIC: Mood and affect normal. LABORATORY DATA: Potassium 5.3, BUN 92, creatinine is . ASSESSMENT AND PLAN: 1. Acute kidney injury on chronic kidney stage 3 with stable creatinine. Avoid nephrotoxins. We wi ll follow. 2. Hyperkalemia, stable. 3. Metabolic acidosis. 4. Edema. 5. Avoid nephrotoxins. We will follow.
--- NOTE | 2018-08-29 19:30 | ULT ---
RENAL ULTRASOUND 08/29/18 INDICATION: Acute renal insufficiency. FINDINGS: At the superior pole of the left kidney there is a 1.5 cm hypoechoic focus which may relate to a cyst although is too small to definitively characterize. There is no hydronephrosis of either kidney. The documented length of the right kidney is approximately 9 cm and of the left kidney approximately 7 c m. The urinary bladder is decompressed limiting assessment. IMPRESSION: 1. Probable small left renal cyst. 2. No overt hydronephrosis of either kidney. 3. Incidental note of right pleural fluid. Correlate clinically. POS: [facility]
[2018-08-29] MEDS: Atorvastatin Calcium 40 MG TAB PO SCH (21:07)
[2018-08-29] MEDS: Famotidine 20 MG TAB PO SCH (21:08)
[2018-08-29] MEDS: Apixaban 5 MG TAB PO SCH (21:08)
[2018-08-30] MEDS: Sodium Chloride 0.9% 1,000 ML IV SCH (00:56)
[2018-08-30 05:11] LABS: #Basophils 0.1 thou/uL (0.0-0.2); #Eosinphils 0.1 thou/uL (0.0-0.7); #Monocytes 0.5 thou/uL (0.11-0.59); #Neutrophils 4.9 thou/uL (1.40-6.50); %Basophils 1.4 % (0.0-1.0); %Eosinophils 1.8 % (0.0-10.0); %Lymphocytes 14.6 % (21.0-51.0); %Monocytes 7.6 % (0.0-10.0); %Neutrophils 74.7 % (42.0-75.0); Hemoglobin 11.7 g/dL (12.0-16.0); Mean Corpuscular HGB CONC 29.7 g/dL (32.0-36.0); Mean Corpuscular Hemoglobin 25.1 pg (27.0-31.0); Mean Corpuscular Volume 84.5 fL (78.0-98.0); Mean Platelet Volume 9.5 fL (7.4-10.4); Platelet Count 169 thou/uL (130-400); RBC Distribution Width 17.1 % (11.5-14.5); Red Blood Cell (RBC) Count 4.64 mill/uL (4.20-5.40); White Blood Cell (WBC) Count 6.5 thou/uL (4.8-10.8)
[2018-08-30 05:12] LABS: Anion Gap 20 mmol/L (10-20); BUN (Urea Nitrogen) 92 mg/dL (9.8-20.1); Calc. Creatinine Clearance 20 mL/min (70-130); Calcium 8.6 mg/dL (7.8-10.44); Carbon Dioxide 15 mmol/L (23-31); Chloride 102 mmol/L (98-107); Estimated GFR-MDRD 11; Glucose 75 mg/dL (83-110); Magnesium 2.7 mg/dL (1.6-2.6); Potassium 5.2 mmol/L (3.5-5.1); Sodium 132 mmol/L (136-145)
[2018-08-30] MEDS: Acetaminophen 325 MG TAB PO PRN ×2 (05:22→20:17)
[2018-08-30] MEDS ORDERED: Sodium Chloride 0.9% 500 ML IVPB SCH (05:30)
--- NOTE | 2018-08-30 05:32 | PDOC.CTH ---
Cardiology Progress Note - Subjective Pt status has worsened this am. Increase SOB present. No CP noted. HR in the 30's while sleeping. Current HR int he 70's. Daughter states pt wishes to "go home" - Objective Vital Signs Temp Pulse Resp BP BP BP Pulse Ox 08/30/18 04:41 103/51 L 08/30/18 03:48 97.8 F 71 18 79/40 L 92 L 08/29/18 23:48 97.8 F 70 16 133/66 93 L 08/29/18 21:45 104/54 L 08/29/18 21:08 42 L 08/29/18 19:37 97.7 F 72 20 104/54 L 95 Weight 291 lb 14.4 oz 08/28/18 08/29/18 08/30/18 06:59 06:59 06:59 Intake Total 1740 1071 1319 Balance 1740 1071 1319 - Physical Examination General/Neuro: alert & oriented x3, NAD Neck: carotid US brisk, no JVD present Lungs: other: (crackles bilaterally) Heart: other: (irr) Abdomen: NT/ND, soft Extremities: + femoral B - Labs Result Diagrams: 08/30/18 04:43 08/30/18 04:43 Troponin/CKMB CK-MB (CK-2) 3.3 ng/mL (0-6.6) 08/27/18 12:24 Troponin I 0.774 ng/mL (< 0.028) H* 08/27/18 19:12 - Assessment/Plan Afib with pauses Chronic kidney disease UTI MS changes Worsened status today. Pt with increase in respirations and more crackles bilaterally. pH of 7.2 with HCO3 of 15. Add lasix although given renal function may not be of much benenfit Discussed case with nephrology and Dr. Paz Pt prognosis appears poor On Abx Current demise not felt to be secondary to a dysrhythmia Discussed DNR status with daughter and pt. Pt able to make own decisions. She is not interested in intubation of CV if needed. Will make pt DNR
[2018-08-30] MEDS ORDERED: Sodium Bicarbonate 150 MEQ in Dextrose 5% in Water 1,000 ML IV SCH ×2 (07:30→08:45)
[2018-08-30] MEDS: Insulin NPH/Reg Insulin Hm 300 UNITS/3 ML VIAL SC SCH ×2 (08:09→17:43)
[2018-08-30 08:15] LABS: Actual Bicarbonate (HCO3a) 15.9 mEq/L (22-28); Base Excess (BEa) -11.6 mEq/L (-2.0 to +3.0); CO2 Tension 41.4 mmHg (35.0-45.0); Calcium, Ionized 1.14 mmol/L (1.12-1.30); Carboxyhemoglobin (COHb) 1.3 gm% (0.0-3.0); Hemoglobin (Hb) 12.1 g/dL (12.0-16.0); O2 Tension (PaO2) 82.4 mmHg (> 70.0); Potassium - ABG Lab 4.92 mmol/L (3.70-5.30)
[2018-08-30 08:18] LABS: Puncture Site RBA
[2018-08-30] MEDS: Apixaban 5 MG TAB PO SCH ×2 (09:04→20:17)
[2018-08-30] MEDS: Carvedilol 6.25 MG TAB PO SCH ×2 (09:05→20:17)
[2018-08-30] MEDS: Gabapentin 300 MG CAP PO SCH ×2 (09:05→20:17)
[2018-08-30] MEDS: Cefepime 1 GM in Sodium Chloride 0.9% 100 ML IVPB SCH (15:08)
--- NOTE | 2018-08-30 17:51 | PRG ---
DATE OF SERVICE: 08/30/2018 SUBJECTIVE: Patient was seen and examined at bedside and overnight events noted. Patient denies any shortness of breath or chest pain or palpitation. No history of nausea or vomiting or diarrhea or f ever or chills or cramps. OBJECTIVE: GENERAL: This is an obese female in no apparent distress. VITAL SIGNS: Temperature 98.2, pulse 74, respiratory rate 16, blood pressure 132/79. HEENT: Atraumatic, normocephalic. Oral mucosa is moist. NECK: Supple. CARDIOVASCULAR: S1, S2 heard. Rate and rhythm regular. RESPIRATORY: Clear to auscultation. GASTROINTESTINAL: Abdomen is soft. MUSCULOSKELETAL: No tenderness. No edema. DERMATOLOGIC: No skin rash. NEUROLOGIC: Alert and awake and oriented x3. No focal neurologic deficits. Moving all the extremiti es. PSYCHIATRIC: Mood and affect normal. LABORATORY DATA: Potassium is 5.2, BUN , creatinine is 4.7. ASSESSMENT AND PLAN: 1. Acute kidney injury on chronic kidney disease stage 3. Renal function with no significant improv ement. We will change it to sodium bicarbonate, patient is getting fluid overloaded, might have to g kathryn Lasix too. Plan discussed with Dr. Pruitt. 2. Cardiorenal syndrome. 3. Metabolic acidosis, most likely from hypoperfusion. 4. Hyperkalemia, stable. 5. Edema. 6. Hypertension. 7. Hyponatremia. Overall, prognosis is poor. We will continue to follow. Patient wants to consider palliative care a nd will follow.
[2018-08-30] MEDS: Famotidine 20 MG TAB PO SCH (20:17)
[2018-08-30] MEDS: Atorvastatin Calcium 40 MG TAB PO SCH (20:17)
[2018-08-31] MEDS: Gabapentin 300 MG CAP PO SCH ×2 (08:47→21:28)
[2018-08-31] MEDS: Apixaban 5 MG TAB PO SCH ×2 (08:47→21:27)
[2018-08-31] MEDS: Carvedilol 6.25 MG TAB PO SCH ×2 (08:47→21:27)
[2018-08-31] MEDS: Insulin NPH/Reg Insulin Hm 300 UNITS/3 ML VIAL SC SCH ×2 (08:55→17:41)
--- NOTE | 2018-08-31 11:08 | PRG ---
DATE OF SERVICE: 08/31/2018 SUBJECTIVE: The patient was seen and examined at bedside. Daughter is at the bedside. The patient is nonverbal and very lethargic OBJECTIVE: GENERAL: This is an obese female seen and very lethargic. VITAL SIGNS: Temperature 97.7, pulse 71, respiratory rate 18, blood pressure 128/55. HEENT: Atraumatic, normocephalic. Oral mucosa is moist. NECK: Supple. CARDIOVASCULAR: S1, S2 heard. Rate and rhythm regular. RESPIRATORY: Clear to auscultation. GASTROINTESTINAL: Abdomen is soft. MUSCULOSKELETAL: No tenderness, 1+ edema. DERMATOLOGIC: No skin rash. NEUROLOGIC: Alert and awake and oriented x3. No focal neurologic deficits. Moving all the extremit ies. PSYCHIATRIC: Mood and affect normal. LABORATORY DATA: Not done today. ASSESSMENT AND PLAN: 1. Acute kidney injury on chronic kidney disease stage 3. Continue on intravenous fluids 30 mL per hour. 2. Cardiorenal syndrome. Follow up with cardiology. 3. Metabolic acidosis. 4. Hyperkalemia. 5. Edema. 6. Hypertension. 7. Prognosis guarded. We will follow.
[2018-08-31] MEDS: Acetaminophen 325 MG TAB PO PRN ×2 (13:18→19:05)
[2018-08-31] MEDS: Cefepime 1 GM in Sodium Chloride 0.9% 100 ML IVPB SCH (16:40)
[2018-08-31] MEDS: Famotidine 20 MG TAB PO SCH (21:27)
[2018-09-01 05:15] LABS: #Eosinphils 0.1 thou/uL (0.0-0.7); #Monocytes 0.5 thou/uL (0.11-0.59); #Neutrophils 4.2 thou/uL (1.40-6.50); %Basophils 0.2 % (0.0-1.0); %Eosinophils 1.3 % (0.0-10.0); %Lymphocytes 16.9 % (21.0-51.0); %Monocytes 8.5 % (0.0-10.0); %Neutrophils 73.1 % (42.0-75.0); Hemoglobin 11.9 g/dL (12.0-16.0); Mean Corpuscular HGB CONC 30.9 g/dL (32.0-36.0); Mean Corpuscular Hemoglobin 26.2 pg (27.0-31.0); Mean Corpuscular Volume 84.8 fL (78.0-98.0); Mean Platelet Volume 8.9 fL (7.4-10.4); Platelet Count 207 thou/uL (130-400); RBC Distribution Width 17.1 % (11.5-14.5); Red Blood Cell (RBC) Count 4.55 mill/uL (4.20-5.40); White Blood Cell (WBC) Count 5.7 thou/uL (4.8-10.8)
[2018-09-01 05:33] LABS: Anion Gap 16 mmol/L (10-20); BUN (Urea Nitrogen) 85 mg/dL (9.8-20.1); Calc. Creatinine Clearance 39 mL/min (70-130); Calcium 9.2 mg/dL (7.8-10.44); Carbon Dioxide 20 mmol/L (23-31); Chloride 105 mmol/L (98-107); Estimated GFR-MDRD 23; Glucose 153 mg/dL (83-110); Magnesium 2.4 mg/dL (1.6-2.6); Sodium 136 mmol/L (136-145)
[2018-09-01] MEDS: Apixaban 5 MG TAB PO SCH ×2 (08:51→23:37)
[2018-09-01] MEDS: Gabapentin 300 MG CAP PO SCH ×2 (08:53→23:38)
[2018-09-01] MEDS: Carvedilol 6.25 MG TAB PO SCH ×2 (08:54→23:37)
[2018-09-01] MEDS: Insulin NPH/Reg Insulin Hm 300 UNITS/3 ML VIAL SC SCH ×2 (08:58→16:48)
--- NOTE | 2018-09-01 14:24 | PRG ---
DATE OF SERVICE: 09/01/2018 SUBJECTIVE: The patient was seen and examined at bedside. She remains somnolent today. Family memb ers at the bedside. PHYSICAL EXAMINATION: GENERAL: This is an obese female, somnolent. VITAL SIGNS: Temperature , respirations 16, blood pressure 135/65. HEENT: Atraumatic, normocephalic. Oral mucosa is moist. NECK: Supple. CARDIOVASCULAR: S1 and S2 heard. Rate and rhythm regular. RESPIRATORY: Clear to auscultation. GASTROINTESTINAL: Abdomen is soft. MUSCULOSKELETAL: A 1+ edema. DERMATOLOGIC: No skin rash. NEUROLOGIC: Somnolent. PSYCHIATRIC: Mood and affect normal. LABORATORY DATA: Potassium is 5.0, BUN is 85, creatinine is 2.57. ASSESSMENT AND PLAN: 1. Acute kidney injury. Renal function seems to be better. 2. Chronic kidney disease, stage 3. 3. Cardiorenal syndrome. 4. Hyperlipidemia, better. 5. Edema. 6. Metabolic acidosis. 7. Hypertension. 8. Altered mentation. 9. Renal function better. Avoid nephrotoxins.
[2018-09-01] MEDS: Cefepime 1 GM in Sodium Chloride 0.9% 100 ML IVPB SCH (14:45)
[2018-09-01] MEDS: Acetaminophen 650 MG Suppository PR PRN (15:10)
[2018-09-01 17:30] LABS: Glucose 98 mg/dL (83-110)
[2018-09-01] MEDS: [UNRECOGNIZED DRUG - OTHER] IV SCH (18:28)
[2018-09-01] MEDS: WATER IV SCH (18:28)
[2018-09-01] MEDS: SODIUM CHLORIDE IV SCH (18:28)
[2018-09-01] MEDS: DEXTROSE 70% IV SCH (18:28)
[2018-09-01] MEDS: Atorvastatin Calcium 40 MG TAB PO SCH (23:37)
[2018-09-01] MEDS: Famotidine 20 MG TAB PO SCH (23:38)
[2018-09-02 10:22] LABS: #Eosinphils 0.1 thou/uL (0.0-0.7); #Lymphocytes 0.8 thou/uL (1.20-3.40); #Monocytes 0.6 thou/uL (0.11-0.59); #Neutrophils 5.5 thou/uL (1.40-6.50); %Basophils 0.4 % (0.0-1.0); %Eosinophils 0.7 % (0.0-10.0); %Lymphocytes 11.5 % (21.0-51.0); %Monocytes 8.7 % (0.0-10.0); %Neutrophils 78.7 % (42.0-75.0); Hemoglobin 12.3 g/dL (12.0-16.0); Mean Corpuscular HGB CONC 31.2 g/dL (32.0-36.0); Mean Corpuscular Hemoglobin 26.4 pg (27.0-31.0); Mean Corpuscular Volume 84.8 fL (78.0-98.0); Mean Platelet Volume 8.8 fL (7.4-10.4); Platelet Count 221 thou/uL (130-400); RBC Distribution Width 16.9 % (11.5-14.5); Red Blood Cell (RBC) Count 4.66 mill/uL (4.20-5.40)
[2018-09-02 10:43] LABS: Anion Gap 16 mmol/L (10-20); BUN (Urea Nitrogen) 65 mg/dL (9.8-20.1); Calc. Creatinine Clearance 63 mL/min (70-130); Calcium 9.5 mg/dL (7.8-10.44); Carbon Dioxide 21 mmol/L (23-31); Chloride 109 mmol/L (98-107); Estimated GFR-MDRD 40; Glucose 174 mg/dL (83-110); Potassium 5.1 mmol/L (3.5-5.1); Sodium 141 mmol/L (136-145)
[2018-09-02] MEDS ORDERED: Fentanyl 100 MCG/2 ML VIAL SLOW IVP SCH (12:15)
[2018-09-02] MEDS: Apixaban 5 MG TAB PO SCH ×2 (12:36→21:22)
[2018-09-02] MEDS: Carvedilol 6.25 MG TAB PO SCH ×2 (12:36→21:22)
[2018-09-02] MEDS: Gabapentin 300 MG CAP PO SCH ×2 (12:37→21:23)
[2018-09-02] MEDS: Cefepime 1 GM in Sodium Chloride 0.9% 100 ML IVPB SCH (15:58)
--- NOTE | 2018-09-02 18:54 | PRG ---
DATE OF SERVICE: 09/02/2018 SUBJECTIVE: Patient was seen and examined at bedside and overnight events noted. Patient denies any shortness of breath or chest pain or palpitation. No history of nausea or vomiting or diarrhea or f ever or chills or cramps. OBJECTIVE: GENERAL: This is an obese female in no apparent distress. VITAL SIGNS: Temperature , pulse 84, respiratory rate 18, blood pressure 146/78. HEENT: Atraumatic, normocephalic. Oral mucosa is moist. NECK: Supple CARDIOVASCULAR: S1, S2 heard. Rate and rhythm regular. RESPIRATORY: Clear to auscultation. GASTROINTESTINAL: Abdomen is soft. MUSCULOSKELETAL: No tenderness, no edema. DERMATOLOGIC: No skin rash. NEUROLOGIC: Alert, awake, and oriented x3. No focal neurologic deficits. Moving all the extremitie s. PSYCHIATRIC: Mood and affect normal. LABORATORY DATA: Potassium is 5.1, BUN is 65, creatinine is 1.53. ASSESSMENT AND PLAN: 1. Acute kidney injury. Renal function is much better, close to baseline. 2. Edema, controlled. 3. Hypertension. 4. Metabolic acidosis, stable. 5. Hypertension. 6. Altered mentation, not much getting better. 7. Renal function is much better. We will monitor.
[2018-09-02] MEDS: Atorvastatin Calcium 40 MG TAB PO SCH (21:22)
[2018-09-02] MEDS: Famotidine 20 MG TAB PO SCH (21:23)
--- NOTE | 2018-09-02 22:33 | PDOC.PN ---
- Subjective Encounter Start Date: 09/02/18 Encounter Start Time: 16:15 -: non-verbal Patient seen and examined for OSMANI/Resp failure. No new complaints. No overnight events. Assumed care from Dr Paz today. - Objective Resuscitation Status: Resuscitation Status DNR:Do Not Resuscitate MAR Reviewed: Yes Vital Signs & Weight: Vital Signs (12 hours) Temp Pulse Resp BP BP Pulse Ox 09/02/18 21:22 152/72 H 09/02/18 20:00 99.3 F 87 20 152/72 H 93 L 09/02/18 16:00 98.5 F 97 20 141/93 H 09/02/18 12:36 156/78 H Weight Weight 290 lb I&O: 09/01/18 09/02/18 09/03/18 06:59 06:59 06:59 Intake Total 950 440 Balance 950 440 Result Diagrams: 09/02/18 10:08 09/02/18 10:08 Additional Labs: Accuchecks 09/02/18 09/02/18 09/02/18 20:43 06:11 02:24 POC Glucose 268 H 136 H 114 H EKG Reviewed by me: Yes (Tele Aflutter) Phys Exam - Physical Examination Constitutional: NAD (Lethargic) Respiratory: no wheezing, no rhonchi Dec AE at bases Cardiovascular: no rub, irregular Gastrointestinal: soft, positive bowel sounds Musculoskeletal: edema present Dx/Plan - Plan IMPRESSION: 1. OSMANI on CKD 3/ Acute hypoxic resp failure/Toxic Metabolic Encephalopathy 2. UTI - no urine cultures available 3. Chronic Afib with pauses - started on anticoag. 4. DM2 5. Chronic systolic HF/Morbid Obesity BMI 44 PLAN Cont Cefepime Cont current IVF Cont Eliquis Hold Insulin Glucose check Q4h Hold Gabapentin AM labs CXR in AM to r/o Pneumonia Review of Systems - Review of Systems Other: Cannot be obtained due to current cognition. - Medications/Allergies Allergies/Adverse Reactions: Allergies Allergy/AdvReac Type Severity Reaction Status Date / Time peanut Allergy Severe Anaphylaxis Verified 05/25/18 08:26 Medications: Current Medications Acetaminophen (Tylenol) 650 mg PO Q4H PRN PRN Reason: Headache/Fever or Pain Last Admin: 08/31/18 19:05 Dose: 650 mg Acetaminophen (Tylenol) 650 mg ME Q4H PRN PRN Reason: Headache/Fever or Pain Last Admin: 09/01/18 15:10 Dose: 650 mg Apixaban (Eliquis) 5 mg PO BID [facility] Last Admin: 09/02/18 21:22 Dose: Not Given Aspirin (Aspirin Chewable) 81 mg PO DAILY [facility] Last Admin: 09/02/18 12:36 Dose: Not Given Atorvastatin Calcium (Lipitor) 40 mg PO HS [facility] Last Admin: 09/02/18 21:22 Dose: Not Given Carvedilol (Coreg) 6.25 mg PO BID [facility] Last Admin: 09/02/18 21:22 Dose: Not Given Dextrose/Water (Dextrose 50%) 25 gm SLOW IVP PRN PRN PRN Reason: Hypoglycemia Last Admin: 09/01/18 16:39 Dose: 25 gm Famotidine (Pepcid) 20 mg PO 2100 [facility] Last Admin: 09/02/18 21:23 Dose: Not Given Gabapentin (Neurontin) 300 mg PO BID [facility] Last Admin: 09/02/18 21:23 Dose: Not Given Glucagon (Glucagon) 1 mg IM PRN PRN PRN Reason: Hypoglycemia Cefepime HCl 1 gm/ Sodium (Chloride) 100 mls @ 200 mls/hr IVPB Q24HR [facility] Last Admin: 09/02/18 15:58 Dose: 100 mls Dextrose/Water (D5w) 1,000 mls @ 0 mls/hr IV .Q0M PRN PRN Reason: Hypoglycemia Sodium Chloride 153.84 meq/ (Dextrose/Water/ Sterile Water) 1,000 mls @ 30 mls/ hr IV .Q24H [facility] Last Admin: 09/01/18 18:28 Dose: 1,000 mls Insulin Human Lispro (Humalog) 0 units SC .MILD SLIDING SCALE PRN PRN Reason: Mild Correctional Scale Last Admin: 08/27/18 18:03 Dose: 4 unit Insulin Human Lispro (Humalog) 0 units SC .BEDTIME SLIDING SC PRN PRN Reason: Bedtime Correctional Scale Last Admin: 08/27/18 23:14 Dose: 3 unit Ondansetron HCl (Zofran Odt) 4 mg PO Q6H PRN PRN Reason: Nausea/Vomiting Ondansetron HCl (Zofran) 4 mg IVP Q6H PRN PRN Reason: Nausea/Vomiting Sodium Chloride (Flush - Normal Saline) 10 ml IVF Q12HR [facility] Last Admin: 09/02/18 21:23 Dose: Not Given Sodium Chloride (Flush - Normal Saline) 10 ml IVF PRN PRN PRN Reason: Saline Flush
[2018-09-02] MEDS: Acetaminophen 650 MG Suppository PR PRN (22:35)
[2018-09-03] MEDS: Insulin NPH/Reg Insulin Hm 300 UNITS/3 ML VIAL SC SCH
[2018-09-03] MEDS: [UNRECOGNIZED DRUG - OTHER] IV SCH (01:49)
[2018-09-03] MEDS: WATER IV SCH (01:49)
[2018-09-03] MEDS: SODIUM CHLORIDE IV SCH (01:49)
[2018-09-03] MEDS: DEXTROSE 70% IV SCH (01:49)
[2018-09-03 05:09] LABS: #Lymphocytes 0.7 thou/uL (1.20-3.40); #Monocytes 0.3 thou/uL (0.11-0.59); #Neutrophils 7.9 thou/uL (1.40-6.50); %Basophils 0.3 % (0.0-1.0); %Eosinophils 0.1 % (0.0-10.0); %Lymphocytes 8.2 % (21.0-51.0); %Monocytes 3.4 % (0.0-10.0); %Neutrophils 87.9 % (42.0-75.0); Hemoglobin 12.9 g/dL (12.0-16.0); Mean Corpuscular HGB CONC 30.4 g/dL (32.0-36.0); Mean Corpuscular Hemoglobin 26.3 pg (27.0-31.0); Mean Corpuscular Volume 86.5 fL (78.0-98.0); Mean Platelet Volume 8.8 fL (7.4-10.4); Platelet Count 233 thou/uL (130-400); RBC Distribution Width 17.5 % (11.5-14.5); Red Blood Cell (RBC) Count 4.92 mill/uL (4.20-5.40); White Blood Cell (WBC) Count 8.9 thou/uL (4.8-10.8)
[2018-09-03 05:25] LABS: Anion Gap 22 mmol/L (10-20); BUN (Urea Nitrogen) 55 mg/dL (9.8-20.1); Calc. Creatinine Clearance 57 mL/min (70-130); Carbon Dioxide 18 mmol/L (23-31); Chloride 112 mmol/L (98-107); Estimated GFR-MDRD 36; Glucose 346 mg/dL (83-110); Potassium 5.6 mmol/L (3.5-5.1); Sodium 146 mmol/L (136-145)
--- NOTE | 2018-09-03 08:07 | RAD ---
PORTABLE CHEST: Date: 09/03/18 HISTORY: Shortness of breath. Pneumonia. COMPARISON: 08/27/18. FINDINGS/IMPRESSION: There continues to be patchy infiltrate and/or atelectasis in the right lower lung extending from the hilum. There is cardiomegaly and mild vascular congestion. Evidence of small effusions. POS: [facility]
[2018-09-03] MEDS ORDERED: Sodium Bicarbonate 150 MEQ in Dextrose 5% in Water 1,000 ML IV SCH (09:00)
[2018-09-03] MEDS: Apixaban 5 MG TAB PO SCH (09:50)
[2018-09-03] MEDS: Carvedilol 6.25 MG TAB PO SCH ×2 (09:50→20:42)
--- NOTE | 2018-09-03 09:52 | PRG ---
Patient Name: KENYETTA WIGGINS Date of service: 09/03/2018 Subjective: Patient was seen and examined at bedside and overnight events noted. Patient denies any shortness of breath or chest pain or palpitation. No history of nausea or vomiting or diarrhea or fever or chills or cramps. Objective: General: This is an obese female in no apparent distress. Vital signs: Temperature 98.3, pulse 102, respiratory rate 18, blood pressure 152/90. HEENT: Atraumatic, normocephalic. Oral mucosa is moist. Neck: Supple. Cardiovascular: S1 S2 heard. Rate and rhythm regular. Respiratory: Clear to auscultation. Gastrointestinal: Abdomen is soft. Musculoskeletal: No tenderness. 1+ edema. Dermatologic: No skin rash. Neurologic: Alert and awake and oriented X3. No focal neurologic deficits. Moving all the extremit ies. Psychiatric: Mood and affect normal. LABORATORY DATA: Potassium 5.6, BUN 55, creatinine is 1.6. ASSESSMENT AND PLAN: 1. Acute kidney injury on chronic kidney disease stage 3. Creatinine is stable. 2. Edema. 3. Acidosis. Will add bicarbonate. 4. Hypertension. 5. Altered mentation, not much better. Renal function is stable. We will change to bicarbonate drip. We will follow.
[2018-09-03] MEDS ORDERED: NPH, Human Insulin Isophane 300 UNIT/3 ML VIAL SC SCH ×2 (11:00→21:00)
[2018-09-03] MEDS: HumaLOG 300 UNITS/3 ML VIAL SC PRN (11:02)
[2018-09-03 12:00] LABS: Bilirubin Negative (Negative); Blood, Urine Small (Negative); Clarity CLOUDY (Clear); Glucose, Urine (Dipstick) >=1000 mg/dL (Negative); Leukocyte Negative (Negative); Nitrite Negative (Negative); Protein, Urine (Dipstick) 30 mg/dL (Neg-Trace); Specific Gravity, Urine 1.017 (1.002-1.036); Urobilinogen 0.2 mg/dL (0.2-1.0)
[2018-09-03 12:13] LABS: Bacteria/HPF None Seen HPF (None Seen); Hyaline Casts/LPF 4-6 HYALINE CAST LPF (0-3 Hyaline); Pathc Cast-AUWi Flag 1.01 (0-2.49); RBC/HPF 0-3 HPF (0-3); Squamous Epithelial 0-3 HPF (0-3); WBC/HPF 0-3 HPF (0-3)
--- NOTE | 2018-09-03 13:57 | CT ---
CT HEAD WITHOUT CONTRAST: Technique: Multiple axial tomograms were obtained through the head without IV enhancement. Comparison: None. FINDINGS: There is cortical atrophy. Ventricles have normal size and position. No evidence of infarct. A tiny focal density seen cortex of the vertex right frontal lobe. There is subtle densities also see n slightly more inferior in the superior frontal gyrus. There is also a focal density in the right ba dru ganglia which could be calcification although the density is borderline value for calcification. There is no mass or edema. No parenchymal hematoma. IMPRESSION: Subtle areas of increased density in the cortex near the vertex of the right frontal lobe and focal a ginger of density in the right basal ganglia. These may be nonsignificant, however, I cannot exclude sma ll focal areas of hemorrhagic contusion if there history of trauma. Suggest short term follow up to r e-evaluate. POS: [facility]
[2018-09-03] MEDS ORDERED: RENALLY ADJUST ABX IVPB PRN (15:11)
[2018-09-03] MEDS: Cefepime 1 GM in Sodium Chloride 0.9% 100 ML IVPB SCH (16:49)
[2018-09-03] MEDS ORDERED: Piperacillin/Tazobactam 2.25 GM in Sodium Chloride 0.9% 100 ML IVPB SCH (18:00)
[2018-09-03] MEDS ORDERED: Dextrose 5 %-0.45 % NaCl 1,000 ML IV SCH (18:00)
[2018-09-03] MEDS: Piperacillin/Tazobactam 3.375 GM in Sodium Chloride 0.9% 100 ML IVPB SCH (18:29)
[2018-09-03] MEDS: NPH, Human Insulin Isophane 300 UNIT/3 ML VIAL SC SCH (20:38)
[2018-09-03] MEDS: Atorvastatin Calcium 40 MG TAB PO SCH (20:42)
[2018-09-03] MEDS: Enoxaparin Sodium 40 MG/0.4 ML SYRINGE SC SCH (20:42)
[2018-09-03] MEDS: Famotidine 20 MG TAB PO SCH (20:43)
[2018-09-03] MEDS: Acetaminophen 1,000 MG in Premix Bag 1 BAG IVPB SCH (20:43)
--- NOTE | 2018-09-03 22:23 | PDOC.PN ---
- Subjective Encounter Start Date: 09/03/18 Encounter Start Time: 15:00 -: non-verbal Patient seen and examined for Encephalopathy. No new complaints. No overnight events - Objective Resuscitation Status: Resuscitation Status DNR:Do Not Resuscitate MAR Reviewed: Yes Vital Signs & Weight: Vital Signs (12 hours) Temp Pulse Pulse Resp BP BP BP 09/03/18 16:30 99.7 F H 104 H 18 169/79 H 09/03/18 13:20 91 155/78 H 127/59 L 09/03/18 12:14 99.4 F 102 H 18 130/97 H Pulse Ox 09/03/18 16:30 93 L 09/03/18 13:20 09/03/18 12:14 93 L Weight Weight 290 lb I&O: 09/02/18 09/03/18 09/04/18 06:59 06:59 06:59 Intake Total 440 360 Balance 440 360 Result Diagrams: 09/03/18 04:57 09/04/18 07:47 Additional Labs: Accuchecks 09/03/18 09/03/18 09/03/18 16:39 12:11 03:46 POC Glucose 325 H 330 H 302 H 09/03/18 09/02/18 09/02/18 00:38 17:08 11:27 POC Glucose 269 H 228 H 170 H Radiology Reviewed by me: Yes (Ct brain - reviewed) EKG Reviewed by me: Yes (Tele Afib) Phys Exam - Physical Examination confused Respiratory: no wheezing, no rhonchi Dec AE at bases with bibasilar rales Cardiovascular: no rub, irregular Gastrointestinal: soft, positive bowel sounds Dx/Plan - Plan DVT proph w/SCDs IMPRESSION: 1. OSMANI on CKD 3/ Acute hypoxic resp failure/Toxic Metabolic Encephalopathy 2. UTI - no urine cultures available 3. Chronic Afib with pauses - started on anticoag. 4. DM2 5. Chronic systolic HF/Morbid Obesity BMI 44 PLAN NG tube - No PO intake for last 3 days Change Cefepime to Zosyn Cont current IVF (bicarb added due to met acidosis) Start SQ Lovenox at low dose - Daughter understands the risk not limited to lifethreatening bleed despite abnormal CT brain. Add NPH Change sliding scale to moderate Consult Neuro per family req Case d/w Cardiology Repeat cultures Glucose check Q4h AM labs EEG Review of Systems - Review of Systems Other: Cannot obtain due to current cognition - Medications/Allergies Allergies/Adverse Reactions: Allergies Allergy/AdvReac Type Severity Reaction Status Date / Time peanut Allergy Severe Anaphylaxis Verified 05/25/18 08:26 Medications: Current Medications Acetaminophen (Tylenol) 650 mg PO Q4H PRN PRN Reason: Headache/Fever or Pain Last Admin: 08/31/18 19:05 Dose: 650 mg Acetaminophen (Tylenol) 650 mg [place] Q4H PRN PRN Reason: Headache/Fever or Pain Last Admin: 09/02/18 22:35 Dose: 650 mg Aspirin (Aspirin Chewable) 81 mg PO DAILY [facility] Last Admin: 09/03/18 09:50 Dose: Not Given Atorvastatin Calcium (Lipitor) 40 mg PO HS [facility] Last Admin: 09/03/18 20:42 Dose: Not Given Carvedilol (Coreg) 6.25 mg PO BID [facility] Last Admin: 09/03/18 20:42 Dose: Not Given Dextrose/Water (Dextrose 50%) 25 gm SLOW IVP PRN PRN PRN Reason: Hypoglycemia Last Admin: 09/01/18 16:39 Dose: 25 gm Enoxaparin Sodium (Lovenox) 40 mg SC 0900,2100 [facility] Last Admin: 09/03/18 20:42 Dose: Not Given Famotidine (Pepcid) 20 mg PO 2100 [facility] Last Admin: 09/03/18 20:43 Dose: Not Given Glucagon (Glucagon) 1 mg IM PRN PRN PRN Reason: Hypoglycemia Dextrose/Water (D5w) 1,000 mls @ 0 mls/hr IV .Q0M PRN PRN Reason: Hypoglycemia Sodium Bicarbonate 150 meq/ (Dextrose/Water) 1,150 mls @ 30 mls/hr IV ONE [facility] Stop: 09/04/18 08:59 Last Admin: 09/03/18 09:37 Dose: 1,150 mls Piperacillin Sod/Tazobactam (Sod 3.375 gm/ Sodium Chloride) 100 mls @ 200 mls/ hr IVPB Q6HR [facility] Last Admin: 09/03/18 18:29 Dose: 100 mls Dextrose/Sodium Chloride (D5 1/2 Ns) 1,000 mls @ 40 mls/hr IV .Q24H [facility] Insulin Human Lispro (Humalog) 0 units SC .BEDTIME SLIDING SC PRN PRN Reason: Bedtime Correctional Scale Last Admin: 08/27/18 23:14 Dose: 3 unit Insulin Human Lispro (Humalog) 0 units SC .MODERATE SLIDING SC PRN PRN Reason: Moderate Correctional Scale Insulin Human NPH (Humulin N) 10 unit SC BID [facility] Last Admin: 09/03/18 20:38 Dose: 10 unit Miscellaneous Medication (Pharmacy To Dose) 1 each IVPB PRN PRN PRN Reason: Pharmacy to dose Ondansetron HCl (Zofran Odt) 4 mg PO Q6H PRN PRN Reason: Nausea/Vomiting Ondansetron HCl (Zofran) 4 mg IVP Q6H PRN PRN Reason: Nausea/Vomiting Sodium Chloride (Flush - Normal Saline) 10 ml IVF Q12HR [facility] Last Admin: 09/03/18 20:40 Dose: 10 ml Sodium Chloride (Flush - Normal Saline) 10 ml IVF PRN PRN PRN Reason: Saline Flush
[2018-09-04] MEDS: Piperacillin/Tazobactam 3.375 GM in Sodium Chloride 0.9% 100 ML IVPB SCH ×4 (00:10→18:36)
--- NOTE | 2018-09-04 00:13 | CON ---
DATE OF CONSULTATION: 09/03/2018 NEUROLOGY CONSULTATION CONSULTING PHYSICIAN: Hospitalist Service. IMPRESSION: 1. Metabolic encephalopathy. 2. Diabetes. 3. Hypertension. 4. Morbid obesity. 5. Peripheral vascular disease. PLAN: Continue supportive measures. HISTORY OF PRESENT ILLNESS: Ms. Raygoza is a 77-year-old black female with a past history as noted faye goins. She was living at home with family support. Prior to admission, she was suffering with constipat ion and family gave her a laxative. She apparently a kind of lost her appetite after the GI distress occurred. She was not eating well. She started to get generally weaker and so they decided to brin g her to the hospital. On admission, however, she was noted to have a BUN of that was elevated, I ca nnot find her chemistry panel and have her obtain these reports from family. Actually she was placed on IV fluids. As the next couple of days progressed, she seemed to get more lethargic and then deci ded to do a CT scan of the brain. This was reviewed and showed some questionable frontal cortical an d basal ganglia areas of hypointensity. She has not run any fever. Her blood pressures have general ly been stable. She was noted to be a bit acidotic with bicarbonate of 18. Her CRP was also elevate d. She has not had any evidence of dementia prior to admission. She has never had any stroke-like s ymptoms according to the family. Patient was unable to give me any history at this point. PAST MEDICAL HISTORY: As listed above. ALLERGIES: PEANUTS. MEDICATIONS: List was reviewed. SOCIAL HISTORY: No tobacco or alcohol use. FAMILY HISTORY: Noncontributory. REVIEW OF SYSTEMS: Unobtainable. PHYSICAL EXAMINATION: VITAL SIGNS: Blood pressure 127/59, pulse 102 and temperature 99.4. HEENT: Pupils are equal. Conjunctivae clear. Corneas are bit muddy. Cranium is normocephalic and atraumatic. NECK: Supple. EXTREMITIES: There is left AKA. NEUROLOGIC: Neurologically verbal stimulation and mild physical stimulation got the patient to parti ally open her eyes. She began to moan, but I could not get her to answer any questions. Cranial ner ves were grossly symmetric. Tone was symmetric in the upper extremities. No abnormal movements were seen. LABORATORY STUDIES: Reviewed. Her white count has been around 8.9. Blood gas showed a pH of 7.2 wi th O2 of 82 and CO2 of 41. B12, folate and TSH were all in normal range. SUMMARY: This is an elderly lady that has several medical problems who came in a bit azotemic and is lethargic. I do not see anything significant on her CAT scan that would preclude her from being con scious. I suspect that this is mostly metabolic. I would continue some supportive measures and hope fully she will turn the corner.
[2018-09-04] MEDS: HumaLOG 300 UNITS/3 ML VIAL SC PRN ×4 (00:24→16:51)
[2018-09-04] MEDS: Acetaminophen 1,000 MG in Premix Bag 1 BAG IVPB SCH (02:25)
[2018-09-04 06:38] LABS: Anion Gap 16 mmol/L (10-20); BUN (Urea Nitrogen) 62 mg/dL (9.8-20.1); Calc. Creatinine Clearance 48 mL/min (70-130); Calcium 9.9 mg/dL (7.8-10.44); Carbon Dioxide 23 mmol/L (23-31); Chloride 116 mmol/L (98-107); Estimated GFR-MDRD 29; Glucose 324 mg/dL (83-110); Potassium 6.1 mmol/L (3.5-5.1); Sodium 149 mmol/L (136-145)
--- NOTE | 2018-09-04 08:16 | PRG ---
DATE OF SERVICE: 09/03/2018 HISTORY OF PRESENT ILLNESS: I was asked by Dr. Flannery to assess Ms. Raygoza. She appeared to be encepha lopathic as she appeared on Sunday. No significant changes were noted. Her heart rate has remained stable in the 70s-90s. PHYSICAL EXAMINATION: VITAL SIGNS: Blood pressure 139/80, pulse 88, temperature 99.3. LUNGS: Clear to auscultation. CARDIAC: Irregularly irregular. ABDOMEN: Soft, nontender, nondistended. EXTREMITIES: No edema. NEURO: No focal neurologic deficits. IMPRESSION: 1. Encephalopathy. 2. Bradycardia. 3. Atrial fibrillation. RECOMMENDATIONS: 1. At this point, I would recommend Lovenox since she is not able to take p.o. 2. Consult with Neurology. 3. Symptoms unchanged over the weekend. 4. Further recommendation per Neuro.
[2018-09-04 08:21] LABS: Anion Gap 15 mmol/L (10-20); BUN (Urea Nitrogen) 62 mg/dL (9.8-20.1); Calc. Creatinine Clearance 48 mL/min (70-130); Calcium 9.9 mg/dL (7.8-10.44); Carbon Dioxide 26 mmol/L (23-31); Chloride 117 mmol/L (98-107); Estimated GFR-MDRD 29; Glucose 290 mg/dL (83-110); Potassium 4.9 mmol/L (3.5-5.1); Sodium 153 mmol/L (136-145)
[2018-09-04 08:25] LABS: INR-International Normal Ratio 1.5
[2018-09-04 08:26] LABS: PTT 28.4 SEC (22.9-36.1)
[2018-09-04 08:29] LABS: Prothrombin Time 18.2 SEC (12.0-14.7)
[2018-09-04] MEDS ORDERED: Dextrose 5% in Water 1,000 ML IV SCH (08:30)
[2018-09-04] MEDS ORDERED: NPH, Human Insulin Isophane 300 UNIT/3 ML VIAL SC SCH (09:00)
[2018-09-04 09:04] LABS: Actual Bicarbonate (HCO3a) 30.7 mEq/L (22-28); Base Excess (BEa) 5.8 mEq/L (-2.0 to +3.0); CO2 Tension 45.7 mmHg (35.0-45.0); Calcium, Ionized 1.28 mmol/L (1.12-1.30); Carboxyhemoglobin (COHb) 1.5 gm% (0.0-3.0); Hemoglobin (Hb) 12.9 g/dL (12.0-16.0); O2 Tension (PaO2) 70.3 mmHg (> 70.0); Potassium - ABG Lab 4.59 mmol/L (3.70-5.30); pH, Arterial 7.45 (7.35-7.45)
[2018-09-04 09:05] LABS: Puncture Site LBA
[2018-09-04 09:06] LABS: ALV-art Gradient 114.995 (0-20)
--- NOTE | 2018-09-04 09:10 | PRG ---
Patient Name: KENYETTA WIGGINS Date of service: 09/04/2018 Subjective: The patient was seen and examined at bedside. Daughter is at the bedside and the patient is still no t waking up. Objective: General: This is an obese female, confused and not waking up. Vital signs: Temperature 98.3, pulse 80, respiratory rate 17, blood pressure 139/80. HEENT: Atraumatic, normocephalic. Oral mucosa is moist. Neck: Supple. Cardiovascular: S1 S2 heard. Rate and rhythm regular. Respiratory: Clear to auscultation. Gastrointestinal: Abdomen is soft. Musculoskeletal: No tenderness. 1+ edema. Dermatologic: No skin rash. Neurologic: Alert and awake and oriented X3. No focal neurologic deficits. Moving all the extremit ies. Psychiatric: Mood and affect normal. LABORATORY DATA: Potassium is 4.9, BUN 62, creatinine is 2.01. Sodium is 153. ASSESSMENT AND PLAN: 1. Acute kidney injury on chronic kidney disease 3, renal function is stable, slightly elevated crea tinine. 2. Hypernatremia. Add free water if tolerated. The patient is n.p.o. 3. Acidosis, stable. 4. Hypertension. 5. Altered mentation. Monitor glucose closely and sodium level is getting elevated, will add free water. We will follow.
[2018-09-04] MEDS: Carvedilol 6.25 MG TAB PO SCH (11:23)
[2018-09-04] MEDS: NPH, Human Insulin Isophane 300 UNIT/3 ML VIAL SC SCH ×2 (11:25→21:51)
[2018-09-04] MEDS: Enoxaparin Sodium 40 MG/0.4 ML SYRINGE SC SCH ×2 (11:32→21:52)
[2018-09-04] MEDS ORDERED: [UNRECOGNIZED DRUG - REMARK] IVPB PRN (11:38)
[2018-09-04] MEDS ORDERED: hydrALAZINE 20 MG/ML VIAL SLOW IVP PRN (11:38)
[2018-09-04 12:14] VITALS: BMI 44.1
--- NOTE | 2018-09-04 12:35 | SPC ---
PICC PLACEMENT ULTRASOUND GUIDED VENOUS ACCESS: (Peripherally Inserted Central Catheter) DATE: 09/04/2018. HISTORY: A 77-year-old female with altered mental status, unable to feed, requiring total parenteral nutrition (TPN). TECHNIQUE: Catheter caliber: 5 [place]er. Catheter trim length: 47 cm. Catheter lumen number: Double. Catheter tip location: Superior vena cava/right atrial junction. Vein accessed: Left basilic. Signed, informed consent was obtained. A tourniquet was applied at the proximal aspect of the arm. The arm was prepared and draped in the usual sterile fashion. A 25 gauge needle was used to apply bu ffered lidocaine superficially. The vein was punctured with a 21 gauge micropuncture needle under ul trasound guidance. A 0.018 inch guide wire was advanced through the micropuncture needle and into th e vein. Under fluoroscopic guidance, the guide wire was advanced to the right atrium. The PICC (per ipherally inserted central catheter) was flushed and trimmed to the appropriate length. The skin pun cture hole was widened with a blade. The micropuncture needle was exchanged over the guide wire for a 5 [place]er peel-away dilator sheath. The dilator was exchanged over the guide wire for the PICC, whi ch was then further advanced under fluoroscopy. The sheath and guide wire were removed. The PICC wa s flushed again and secured in place at the arm. The patient tolerated the procedure well. There wa s no complication. IMPRESSION: Successful placement of PICC (peripherally inserted central catheter) hugo [] POS: [facility]
--- NOTE | 2018-09-04 14:22 | EEG ---
Referring Physician: Miracle MAURICE EEG # [id number] TEST TYPE: ROUTINE PORTABLE INPATIENT REPORT: AN EEG USING THE INTERNATIONAL TEN-TWENTY SYSTEM OF ELECTRODE PLACEMENT WAS PERFORMED. The background activity shows some medium amplitude theta frequency over both hemispheres. There is some intermittent, generalized discharges which have the appearance of BIPLEDs. Photic stimulation was unremarkable. No epileptiform features were seen. IMPRESSION: THIS IS AN ABNORMAL STUDY FOR THE FINDINGS OF DIFFUSE SLOWING AND BIPLEDs CONSISTENT WITH A DIFFUSE ENCEPHALOPATHIC PROCESS. 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
[2018-09-04] MEDS ORDERED: Dextrose 5 %-0.45 % NaCl 1,000 ML IV SCH (18:00)
[2018-09-04] MEDS: Metoprolol Tartrate 5 MG/5 ML VIAL IVP SCH (19:53)
[2018-09-04 20:05] LABS: Calcium 10.1 mg/dL (7.8-10.44)
[2018-09-04 20:08] LABS: Phosphorus 1.6 mg/dL (2.3-4.7)
[2018-09-04] MEDS ORDERED: Sodium Phosphate 10 MMOL in Sodium Chloride 0.9% 250 ML 250 ML IVPB SCH (21:00)
[2018-09-04] MEDS: Famotidine/PF 20 mg/2ml Vial SLOW IVP SCH (21:53)
[2018-09-04] MEDS ORDERED: Sodium Acetate 2 mEq/ml 40 MEQ, Sodium Chloride 30 MEQ, Potassium Chloride 20 MEQ, Pota... IV SCH (22:00)
--- NOTE | 2018-09-04 23:35 | PDOC.PN ---
- Subjective Encounter Start Date: 09/04/18 Encounter Start Time: 10:30 Patient seen and examined for Encephalopathy. No new complaints. No overnight events - Objective Resuscitation Status: Resuscitation Status DNR:Do Not Resuscitate MAR Reviewed: Yes Vital Signs & Weight: Vital Signs (12 hours) Temp Pulse Pulse Pulse Resp BP BP 09/04/18 20:00 98.3 F 84 18 09/04/18 15:37 97.6 F 91 18 09/04/18 13:57 63 61 193/90 H 171/101 H 09/04/18 11:35 98.2 F 93 18 BP Pulse Ox Pulse Ox Pulse Ox 09/04/18 20:00 175/88 H 97 09/04/18 15:37 179/85 H 96 09/04/18 13:57 96 95 09/04/18 11:35 197/105 H 91 L Weight Admit Weight 288 lb 4.8 oz Weight 290 lb I&O: 09/03/18 09/04/18 09/05/18 06:59 06:59 06:59 Intake Total 360 319 Balance 360 319 Result Diagrams: 09/03/18 04:57 09/04/18 07:47 Additional Labs: Accuchecks 09/04/18 09/04/18 09/04/18 19:27 16:06 09:42 POC Glucose 226 H 240 H 244 H 09/04/18 09/04/18 09/03/18 03:38 00:14 20:25 POC Glucose 307 H 339 H 358 H EKG Reviewed by me: Yes (Tele SR) Phys Exam - Physical Examination Confused Respiratory: no wheezing Dec AE at bases Cardiovascular: RRR, no rub Gastrointestinal: soft, positive bowel sounds Musculoskeletal: no edema Dx/Plan - Plan DVT proph w/lovenox IMPRESSION: 1. OSMANI on CKD 3/ Acute hypoxic resp failure/Toxic Metabolic Encephalopathy 2. UTI - no urine cultures available 3. Chronic Afib with pauses - started on anticoag. 4. DM2 5. Chronic systolic HF/Morbid Obesity BMI 44 PLAN Cont Zosyn Start TPN s/p PICC line Cont NPH Cont sliding scale AM labs Change ASA to OK Review of Systems - Review of Systems Other: Cannot obtain due to current mentation - Medications/Allergies Allergies/Adverse Reactions: Allergies Allergy/AdvReac Type Severity Reaction Status Date / Time peanut Allergy Severe Anaphylaxis Verified 05/25/18 08:26 Medications: Current Medications Acetaminophen (Tylenol) 650 mg PO Q4H PRN PRN Reason: Headache/Fever or Pain Last Admin: 08/31/18 19:05 Dose: 650 mg Acetaminophen (Tylenol) 650 mg [place] Q4H PRN PRN Reason: Headache/Fever or Pain Last Admin: 09/02/18 22:35 Dose: 650 mg Aspirin (Aspirin) 300 mg [place] DAILY [facility] Dextrose/Water (Dextrose 50%) 25 gm SLOW IVP PRN PRN PRN Reason: Hypoglycemia Last Admin: 09/01/18 16:39 Dose: 25 gm Enoxaparin Sodium (Lovenox) 40 mg SC 0900,2100 [facility] Last Admin: 09/04/18 21:52 Dose: 40 mg Famotidine (Pepcid) 20 mg SLOW IVP 2100 [facility] Last Admin: 09/04/18 21:53 Dose: 20 mg Glucagon (Glucagon) 1 mg IM PRN PRN PRN Reason: Hypoglycemia Hydralazine HCl (Apresoline) 10 mg SLOW IVP Q2H PRN PRN Reason: SBP Greater Than 180 Dextrose/Water (D5w) 1,000 mls @ 0 mls/hr IV .Q0M PRN PRN Reason: Hypoglycemia Piperacillin Sod/Tazobactam (Sod 3.375 gm/ Sodium Chloride) 100 mls @ 200 mls/ hr IVPB Q6HR [facility] Last Admin: 09/04/18 18:36 Dose: 100 mls Sodium Acetate 40 meq/ Sodium Chloride 30 meq/ Potassium Chloride 20 meq/ Potassium Phosphate 30 mmol/ Calcium Chloride 10 meq/ Magnesium Sulfate 10 meq/ Multivitamins 10 ml/ Chromium/Copper/Manganese/Seleni/Zn 5 ml/ Fat Emulsion Intravenous 200 ml/Dextrose/Water/ Sterile Water/Amino Acids 1,272.3159 mls @ 53.013 mls/hr IV INF [facility] Last Admin: 09/04/18 21:50 Dose: 1,272.3159 mls Sodium Phosphate 10 mmol/ (Sodium Chloride) 253.3333 mls @ 42.222 mls/hr IVPB NOW [facility] Stop: 09/05/18 02:59 Last Admin: 09/04/18 21:53 Dose: 253.3333 mls Insulin Human Lispro (Humalog) 0 units SC .BEDTIME SLIDING SC PRN PRN Reason: Bedtime Correctional Scale Last Admin: 09/04/18 00:24 Dose: 4 unit Insulin Human Lispro (Humalog) 0 units SC .MODERATE SLIDING SC PRN PRN Reason: Moderate Correctional Scale Last Admin: 09/04/18 16:51 Dose: 4 unit Insulin Human NPH (Humulin N) 10 unit SC BID [facility] Last Admin: 09/04/18 21:51 Dose: 10 unit Metoprolol Tartrate (Lopressor) 2.5 mg IVP Q8H [facility] Last Admin: 09/04/18 19:53 Dose: 2.5 mg Miscellaneous Medication (Pharmacy To Dose) 1 each IVPB PRN PRN PRN Reason: Pharmacy to dose Miscellaneous Medication (Pharmacy To Dose) 1 each IVPB PRN PRN PRN Reason: Pharmacy to dose Ondansetron HCl (Zofran Odt) 4 mg PO Q6H PRN PRN Reason: Nausea/Vomiting Ondansetron HCl (Zofran) 4 mg IVP Q6H PRN PRN Reason: Nausea/Vomiting Sodium Chloride (Flush - Normal Saline) 10 ml IVF Q12HR [facility] Last Admin: 09/04/18 21:53 Dose: 10 ml Sodium Chloride (Flush - Normal Saline) 10 ml IVF PRN PRN PRN Reason: Saline Flush
[2018-09-05] MEDS: HumaLOG 300 UNITS/3 ML VIAL SC PRN ×5 (01:50→16:39)
[2018-09-05] MEDS: Metoprolol Tartrate 5 MG/5 ML VIAL IVP SCH ×3 (02:48→18:29)
[2018-09-05] MEDS: Piperacillin/Tazobactam 3.375 GM in Sodium Chloride 0.9% 100 ML IVPB SCH ×4 (04:23→21:50)
[2018-09-05] MEDS ORDERED: Piperacillin/Tazobactam 3.375 GM in Sodium Chloride 0.9% 100 ML IVPB SCH (04:30)
[2018-09-05 05:43] LABS: Anion Gap 17 mmol/L (10-20); BUN (Urea Nitrogen) 58 mg/dL (9.8-20.1); Calc. Creatinine Clearance 49 mL/min (70-130); Calcium 9.9 mg/dL (7.8-10.44); Carbon Dioxide 24 mmol/L (23-31); Chloride 120 mmol/L (98-107); Estimated GFR-MDRD 30; Glucose 464 mg/dL (83-110); Magnesium 2.2 mg/dL (1.6-2.6); Phosphorus 2.8 mg/dL (2.3-4.7); Potassium 4.8 mmol/L (3.5-5.1); Sodium 156 mmol/L (136-145)
[2018-09-05 06:01] LABS: #Lymphocytes 1.7 thou/uL (1.20-3.40); #Monocytes 0.9 thou/uL (0.11-0.59); #Neutrophils 9.2 thou/uL (1.40-6.50); %Basophils 0.1 % (0.0-1.0); %Eosinophils 0.2 % (0.0-10.0); %Lymphocytes 14.1 % (21.0-51.0); %Monocytes 7.5 % (0.0-10.0); %Neutrophils 78.2 % (42.0-75.0); Acanthocytes SLIGHT = 1-5 cells (100X) (None Seen); Hemoglobin 13.2 g/dL (12.0-16.0); MDiff Complete? YES; Mean Corpuscular HGB CONC 29.7 g/dL (32.0-36.0); Mean Corpuscular Hemoglobin 26.1 pg (27.0-31.0); Mean Corpuscular Volume 87.7 fL (78.0-98.0); Mean Platelet Volume 10.2 fL (7.4-10.4); PLT Morphology Comment Appears Adequate; Platelet Count 214 thou/uL (130-400); RBC Distribution Width 17.8 % (11.5-14.5); Red Blood Cell (RBC) Count 5.05 mill/uL (4.20-5.40); White Blood Cell (WBC) Count 11.7 thou/uL (4.8-10.8)
[2018-09-05] MEDS ORDERED: NPH, Human Insulin Isophane 300 UNIT/3 ML VIAL SC SCH (08:39)
[2018-09-05] MEDS ORDERED: Aspirin 300 MG Suppository PR SCH (09:00)
[2018-09-05] MEDS: Enoxaparin Sodium 40 MG/0.4 ML SYRINGE SC SCH (09:29)
[2018-09-05] MEDS: NPH, Human Insulin Isophane 300 UNIT/3 ML VIAL SC SCH ×2 (09:29→21:49)
--- NOTE | 2018-09-05 09:49 | RAD ---
CHEST 1 VIEW: HISTORY: Dyspnea. Fluid overload. COMPARISON: 09/03/2018. FINDINGS: Cardiac silhouette is magnified by projection. Pulmonary vasculature is more engorged than on the pr ior study with increasing bilateral perihilar and bibasilar infiltrates. Mediastinum is midline. No evidence of pneumothorax. IMPRESSION: Worsening pulmonary edema. POS: [facility]
--- NOTE | 2018-09-05 10:12 | PRG ---
Patient Name: KENYETTA WIGGINS Date of service: 09/05/2018 Subjective: The patient was seen and examined at bedside. The patient remains nonverbal and somnolent. Objective: General: This is an obese female seen at bedside and somnolent. Vital signs: Temperature 98.1, pulse 77, respiratory rate 19, blood pressure 170/103. HEENT: Atraumatic, normocephalic. Oral mucosa is moist. Neck: Supple. Cardiovascular: S1 S2 heard. Rate and rhythm regular. Respiratory: Clear to auscultation. Gastrointestinal: Abdomen is soft. Musculoskeletal: No tenderness. No edema. Dermatologic: No skin rash. Neurologic: Somnolent. Not waking up. LABORATORY DATA: Sodium 156, chloride 120, BUN 58, creatinine is 1.9. ASSESSMENT AND PLAN: 1. Acute kidney injury on chronic kidney stage 3, stable. Continue on TPN. 2. Hypernatremia with hyperchloremia, cautious sodium administration with TPN. I advised the nurse to talk with the pharmacist. 3. Metabolic acidosis, stable. 4. Hypertension. 5. Altered mentation, not getting any better. Overall, renal function is stable. Cautious electrolyte administration with TPN. Prognosis is guarded. I will follow.
[2018-09-05] MEDS ORDERED: Furosemide 40 MG/4 ML VIAL SLOW IVP SCH (10:30)
[2018-09-05] MEDS ORDERED: Potassium ACETATE 20 MEQ, Potassium Phosphate 30 MMOL, Calcium Gluconate 10 MEQ, Magnes... IV SCH (14:00)
--- NOTE | 2018-09-05 15:00 | PDOC.PN ---
- Subjective Encounter Start Date: 09/05/18 Encounter Start Time: 10:30 Patient seen and examined for Encephalopathy. Remains confused. No overnight events - Objective Resuscitation Status: Resuscitation Status DNR:Do Not Resuscitate MAR Reviewed: Yes Vital Signs & Weight: Vital Signs (12 hours) Temp Pulse Pulse Pulse Resp BP BP 09/05/18 11:43 68 70 167/92 H 175/76 H 09/05/18 11:20 98.0 F 80 20 09/05/18 08:00 09/05/18 07:58 98.1 F 77 19 09/05/18 04:00 97.1 F L 75 20 BP Pulse Ox Pulse Ox Pulse Ox 09/05/18 11:43 96 95 09/05/18 11:20 141/91 H 96 09/05/18 08:00 96 09/05/18 07:58 177/103 H 96 09/05/18 04:00 148/83 H 95 Weight Admit Weight 288 lb 4.8 oz Weight 290 lb I&O: 09/04/18 09/05/18 09/06/18 06:59 06:59 06:59 Intake Total 319 792 Balance 319 792 Result Diagrams: 09/05/18 04:55 09/05/18 04:55 Additional Labs: Accuchecks 09/05/18 09/05/18 09/05/18 12:17 09:03 03:33 POC Glucose 450 H 404 H 371 H 09/04/18 09/04/18 09/04/18 23:29 19:27 16:06 POC Glucose 271 H 226 H 240 H Radiology Reviewed by me: Yes (CXR - Pulm Edema) EKG Reviewed by me: Yes (Tele Afib with NSVT) Phys Exam - Physical Examination Lethargic Respiratory: no wheezing, no rhonchi Cardiovascular: RRR, no rub Gastrointestinal: soft, non-tender, positive bowel sounds Musculoskeletal: edema present Dx/Plan - Plan plan discussed w/ family, DVT proph w/lovenox, DVT proph w/SCDs IMPRESSION: 1. OSMANI on CKD 3/ Acute hypoxic resp failure/Toxic Metabolic Encephalopathy 2. UTI - no urine cultures available 3. Chronic Afib with pauses - started on anticoag. 4. DM2 5. Hypophosphatemia/Hypernatremia 6. Chronic systolic HF/Morbid Obesity BMI 44 PLAN PEG tube Cont TPN Replace Phosphorus Increase NPH dose Change sliding scale to aggressive Diuresis Review of Systems - Review of Systems Other: Cannot obtain due to current mentation - Medications/Allergies Allergies/Adverse Reactions: Allergies Allergy/AdvReac Type Severity Reaction Status Date / Time peanut Allergy Severe Anaphylaxis Verified 05/25/18 08:26 Medications: Current Medications Acetaminophen (Tylenol) 650 mg PO Q4H PRN PRN Reason: Headache/Fever or Pain Last Admin: 08/31/18 19:05 Dose: 650 mg Acetaminophen (Tylenol) 650 mg [place] Q4H PRN PRN Reason: Headache/Fever or Pain Last Admin: 09/02/18 22:35 Dose: 650 mg Aspirin (Aspirin) 300 mg [place] DAILY [facility] Last Admin: 09/05/18 09:32 Dose: 300 mg Dextrose/Water (Dextrose 50%) 25 gm SLOW IVP PRN PRN PRN Reason: Hypoglycemia Last Admin: 09/01/18 16:39 Dose: 25 gm Enoxaparin Sodium (Lovenox) 40 mg SC 0900,2100 [facility] Last Admin: 09/05/18 09:29 Dose: 40 mg Famotidine (Pepcid) 20 mg SLOW IVP 2100 [facility] Last Admin: 09/04/18 21:53 Dose: 20 mg Glucagon (Glucagon) 1 mg IM PRN PRN PRN Reason: Hypoglycemia Hydralazine HCl (Apresoline) 10 mg SLOW IVP Q2H PRN PRN Reason: SBP Greater Than 180 Dextrose/Water (D5w) 1,000 mls @ 0 mls/hr IV .Q0M PRN PRN Reason: Hypoglycemia Piperacillin Sod/Tazobactam (Sod 3.375 gm/ Sodium Chloride) 100 mls @ 200 mls/ hr IVPB 0400,1000,1600,2200 [facility] Last Admin: 09/05/18 10:03 Dose: 100 mls Potassium Acetate 20 meq/Potassium Phosphate 30 mmol/Calcium Gluconate 10 meq/ Magnesium Sulfate 10 meq/Multivitamins 10 ml/ Chromium/Copper/Manganese/Seleni/ Zn 5 ml/ Fat Emulsion Intravenous 200 ml/ Dextrose/Water/Sterile Water/ Amino Acids 1,259.2021 mls @ 52.467 mls/hr IV INF [facility] Insulin Human Lispro (Humalog) 0 units SC .BEDTIME SLIDING SC PRN PRN Reason: Bedtime Correctional Scale Last Admin: 09/05/18 04:35 Dose: 5 unit Insulin Human Lispro (Humalog) 0 units SC .AGGRESSIVE SLIDING PRN PRN Reason: Aggressive Correctional Scale Last Admin: 09/05/18 13:28 Dose: 13 unit Insulin Human NPH (Humulin N) 20 unit SC BID [facility] Last Admin: 09/05/18 09:29 Dose: 20 unit Metoprolol Tartrate (Lopressor) 2.5 mg IVP Q8H [facility] Last Admin: 09/05/18 10:03 Dose: 2.5 mg Miscellaneous Medication (Pharmacy To Dose) 1 each IVPB PRN PRN PRN Reason: Pharmacy to dose Miscellaneous Medication (Pharmacy To Dose) 1 each IVPB PRN PRN PRN Reason: Pharmacy to dose Ondansetron HCl (Zofran Odt) 4 mg PO Q6H PRN PRN Reason: Nausea/Vomiting Ondansetron HCl (Zofran) 4 mg IVP Q6H PRN PRN Reason: Nausea/Vomiting Sodium Chloride (Flush - Normal Saline) 10 ml IVF Q12HR [facility] Last Admin: 09/05/18 09:33 Dose: 10 ml Sodium Chloride (Flush - Normal Saline) 10 ml IVF PRN PRN PRN Reason: Saline Flush
--- NOTE | 2018-09-05 16:17 | CON ---
DATE OF CONSULTATION: 09/05/2018 GI INPATIENT CONSULTATION NOTE REQUESTING PHYSICIAN: Dr. Flannery. REASON FOR CONSULTATION: PEG tube placement. HISTORY OF PRESENT ILLNESS: Sonia Raygoza is a 77-year-old -[place] woman with a history signif icant for severe peripheral vascular disease, status post left [id number] amputation, diabetes, m orbid obesity, and hypertension. She was admitted to the hospital 9 days ago after presenting with a cute kidney injury, generalized decline, and some recent changes in bowel habits toward constipation. Upon arrival, she was found to be in atrial fibrillation. She was short of breath. Unfortunately since admission, she has now developed an encephalopathy which is felt to be metabolic despite full s upportive care. Over the past several days, she has had decline in mental status and is essentially not waking up. She has not taken any oral intake in several days. Evidently, nasogastric tube was a ttempted to be passed, but there was some resistance and some blood with the nasogastric tube, so she was started on TPN yesterday. We are consulted for consideration of PEG tube placement. REVIEW OF SYSTEMS: Unable to obtain from the patient due to her altered mental status. PAST MEDICAL HISTORY: Morbid obesity, severe peripheral vascular disease, left above the knee amputa tion, atrial fibrillation, diabetes, hypertension, hyperlipidemia, congestive heart failure, chronic kidney disease, blindness, hysterectomy and cholecystectomy. HOME MEDICATIONS: Lisinopril, Lasix, Plavix, Humulin, aspirin, Norvasc, Lipitor, Coreg, Neurontin. ALLERGIES: PEANUTS. SOCIAL HISTORY: No smoking, alcohol, or drug abuse. FAMILY HISTORY: Noncontributory. PHYSICAL EXAMINATION: VITAL SIGNS: Temperature 98.0, pulse 80, blood pressure 167/92, 96% oxygen saturation on 3.5 liters nasal cannula. GENERAL: Morbidly obese 77-year-old woman in no acute distress. MENTAL STATUS: She is encephalopathic. She does not respond to voice. She will withdraw to painful stimuli, no meaningful communication. SKIN: No jaundice, no rash visible or palpable. EYES: No scleral icterus. ENT: Mucous membranes moist. LYMPH: No submandibular or supraclavicular lymphadenopathy. THYROID: Nontender to palpation. HEART: Irregular rhythm. LUNGS: Bibasilar crackles. ABDOMEN: Morbidly obese, nondistended, nontender to palpation throughout. She does have a large hor izontal scar across the entire upper abdomen which is likely a cholecystectomy scar, though it does a ppear to go quite a bit to the left upper quadrant, even. EXTREMITIES: She is status post left AKA. NEUROLOGIC: She does not follow commands. LABORATORY STUDIES: WBC 11.7, hemoglobin 13.2, platelets 214. INR 1.5. Sodium 156, potassium 4.8, BUN 58, creatinine 1.96, glucose 450, calcium 9.9 and phosphorus 2.8. IMAGING STUDIES: Chest x-ray from this morning showed pulmonary edema. EEG demonstrated pattern con sistent with diffuse encephalopathy. Brain CT showed subtle areas of increased density in the cortex near the vertex of the right frontal lobe and right basal ganglia, may be nonsignificant. ASSESSMENT AND PLAN: 1. Metabolic encephalopathy, severe. 2. Malnutrition, secondary to inability to take in oral intake due to her encephalopathy. 3. Morbid obesity. With this degree of encephalopathy, I agree that PEG tube placement is a reasona ble option for nutritional and fluid delivery. Note she is significantly hypernatremic. Nephrology is following. I had a josé discussion with the patient's daughter today that PEG tube placement arvin ht be difficult given the degree of the patient's obesity as well as this scar which does seem to ext end across the midline of the upper abdomen. We will plan to attempt PEG placement tomorrow. Please hold the Lovenox tomorrow morning. Thank you for the consultation. Please call me at anytime with questions or concerns.
[2018-09-05 16:44] VITALS: TEMP 96.2
[2018-09-05] MEDS: Famotidine/PF 20 mg/2ml Vial SLOW IVP SCH (21:49)
[2018-09-06 01:01] VITALS: BP 131/84
--- NOTE | 2018-09-06 16:41 | DS ---
DATE : 09/06/2018 BRIEF HOSPITAL COURSE: The patient was a 77-year-old female with cardiomyopathy with ejection fracti on 40% range, diabetes mellitus type 2, hypertension, peripheral vascular disease, morbid obesity wit h a BMI 44.1 and left above-knee amputation in the past, presented to the emergency room on 8 with generalized weakness and fatigue. Please refer to the history and physical by Dr. Paz for further details. The patient was admitted to the hospital with a diagnosis of acute kidney injury secondary to dehydra tion. Creatinine on admission was 5.34 that improved to 1.96 with gentle IV hydration. She was also found to have a UTI and was started on antibiotics. Please note that urine cultures were not sent o n admission. Her blood cultures remained negative. The patient was also evaluated by Cardiology for atrial fibrillation with pauses. Overall, her condition started to get worsened. She intermittentl y received diuretics. ABGs on 08/30/2018 showed pH of 7.2 with pCO2 of 41.4, pO2 82.4 with bicarbona te 15.9. I assume the care of this patient on 09/02/2018. The patient was continued on anticoagulat ion along with antibiotics. NG tube was attempted without any success. Later on PICC line was place d and she was started on TPN. Her blood sugars were managed with insulin sliding scale every 4 hourl y along with NPH. She had a repeat Infectious Disease workup that was essentially negative. A GI co nsult was placed yesterday for possible PEG tube placement per family's request. This morning, the p atient developed a long sinus pause and did not return to sinus rhythm. FINAL DIAGNOSES: 1. Toxic metabolic encephalopathy. 2. Acute hypoxic respiratory failure. 3. Acute kidney injury on chronic kidney disease stage 3. 4. Metabolic acidosis. 5. Urinary tract infection. 6. Chronic atrial fibrillation with pauses. 7. Diabetes mellitus type 2. 8. Hypophosphatemia. 9. Hypernatremia. 10. Chronic systolic heart failure. 11. Morbid obesity with a BMI 44.1. 12. Peripheral vascular disease, status post left above knee amputation. 13. Legal blindness.
== END 2018-09-06 02:05 | disposition expired | DRG 682 ==
LOC: ERS 09:43 → 2NO 13:11
PROVIDERS: ADMIT Internal Medicine Infectious Disease; ATTEND Internal Medicine Infectious Disease
PROC: 3E0336Z Introduction of Nutritional Substance into Peripheral Vein, Percutaneous Approach (ICD-10-PCS; 2018-08-27)
PROC: 02H633Z Insertion of Infusion Device into Right Atrium, Percutaneous Approach (ICD-10-PCS; 2018-08-27)
PROC: B244ZZZ Ultrasonography of Right Heart (ICD-10-PCS; 2018-08-27)
PROC: 0DH63UZ Insertion of Feeding Device into Stomach, Percutaneous Approach (ICD-10-PCS; principal; 2018-09-05)
DX: N17.9 Acute kidney failure, unspecified (principal); G93.41 Metabolic encephalopathy; J96.01 Acute respiratory failure with hypoxia; I13.0 Hypertensive heart and chronic kidney disease with heart failure and stage 1 through stage 4 chronic kidney disease, or unspecified chronic kidney disease; I50.22 Chronic systolic (congestive) heart failure; E87.0 Hyperosmolality and hypernatremia; E87.2 Acidosis; E87.1 Hypo-osmolality and hyponatremia; I42.9 Cardiomyopathy, unspecified; N39.0 Urinary tract infection, site not specified; Z68.41 Body mass index [BMI] 40.0-44.9, adult; E11.22 Type 2 diabetes mellitus with diabetic chronic kidney disease; N18.3 Chronic kidney disease, stage 3 (moderate); Z66 Do not resuscitate; E87.8 Other disorders of electrolyte and fluid balance, not elsewhere classified; R00.1 Bradycardia, unspecified; I48.2 Chronic atrial fibrillation; I73.9 Peripheral vascular disease, unspecified; Z89.512 Acquired absence of left leg below knee; H54.8 Legal blindness, as defined in USA; E86.0 Dehydration; Z51.5 Encounter for palliative care; E66.01 Morbid (severe) obesity due to excess calories; E87.5 Hyperkalemia; E11.42 Type 2 diabetes mellitus with diabetic polyneuropathy
CPT/HCPCS: 36415; 36416; 36569; 51701; 70450; 71045; 76770; 80048; 80053; 81001; 81003; 81015; 82010; 82140; 82553; 82607; 82746; 82805; 83605; 83735; 83880; 84100; 84443; 84484; 85025; 85610; 85730; 86140; 87040; 87081; 87086; 87430; 93005; 94760; 95816; 95819; 96360; A4217; A4353; C1751; G8978-GP-CN; G8979-GP-CK; G8987-GO-CN; G8988-GO-CL; J0131; J0692; J1644; J1650; J1815; J1940; J2543; J3010; J3475; J3480; J7050; J7070; S0028